=== PATIENT | male | born 1935 | race Caucasian/White ===

== ENCOUNTER 2016-03-16 09:42 | Emergency (ER) | payer MEDICARE ==
[~2016-03-16 09:42] MED LIST: /ESOM40CA PO; ASPI325T PO; ASPI81TAEC PO; ATOR40TA PO; AVEL1TAB PO; CAPT62TA PO; CLOP75TA2 PO; FE T325T PO; FERR325T3 PO; FISH1000 PO; FOLI1TAB2 PO; HYDR500C12 PO; IRON28TA PO; JADE1TAB3 PO; PANT40TA2 PO; PROC INJ; PROC1INJ6 INJ; SERT-141 PO; SUCR1TA PO; SYSTSOL11 OU; TYLE325T5 PO; VITMTA PO
--- NOTE | 2016-03-16 11:20 | EDDOCDS ---
Physician Documentation [facility] Name: Tr Denson Age: 80 yrs Sex: Male : 1935 Arrival Date: 03/16/2016 Time: 09:42 Bed Private MD: Skip Michaels A. Disposition: 03/16/16 10:53 Discharged to Home/Self Care. Impression: Unspecified open wound of right forearm. - Condition is Stable. - Discharge Instructions: Wound Care, [id number]. - Medication Reconciliation form. - Follow up: Emergency Department; When: As needed. Follow up: Kody Ramirez MD; When: Call to arrange an appointment; Reason: Wound/Symptom Recheck, Recheck today's complaints, Worsening of conditions, Continuance of care. - Problem is an ongoing problem. - Symptoms are unchanged. Historical: - Allergies: No known drug Allergies; - Home Meds: 1. aspirin 81 mg Oral chew 1 tab once daily 2. atorvastatin 40 mg oral tab 1 tab once daily 3. Daily-Esteban oral tab daily 4. Fish Oil Oral 1200 mg daily 5. hydroxyurea 500 mg Oral cap every day except tues everyday except tues 6. Procrit 40,000 unit/mL Inj soln 3 times per wk 7. sertraline 50 mg oral tab 1 tab once daily 8. captopril 12.5 mg Oral tab 0.5 tab 2 times per day 9. Plavix 75 mg Oral tab 1 tab once daily 10. Jadenu 360 mg oral tab 1 tab once daily 11. furosemide 20 mg Oral tab 1 tab once daily 12. metoprolol succinate 25 mg Tb24 1 tab once daily - PMHx: Anemia; aortic anyeursym; CVA; Essential Thronbocytemia; Hypercholesterolemia; Hypertension; Myelodysplasia; - PSHx: open heart- aortic valve replacement; Cardiac Ablation; Tonsillectomy; - Social history: Smoking status: Patient states former smoker of tobacco. No barriers to communication noted, The patient speaks fluent Iranian, Speaks appropriately for age. - : The pt / caregiver states he / she is not on anticoagulants. Home medication list is obtained from the patient, family members. - Exposure Risk Screening:: None identified. Vital Signs: 03/16 09:43 BP 123 / 54; Pulse 59; Resp 18; Temp 95.9(O); Pulse Ox 100% on R/A; Weight 63.96 kg / elp 141.01 lbs (R); Height 5 ft. 11 in. (180.34 cm) (R); Pain 0/10; 11:08 BP 107 / 57 RA Sitting (auto/reg); Pulse 62; Resp 16; Temp 96.1(T); Pulse Ox 98% on rs6 R/A; Pain 0/10; 09:43 Body Mass Index 19.67 (63.96 kg, 180.34 cm) elp MDM: 10:35 [facility] Payment Agreement was scanned into [employer] and attached to record. jls1 10:36 [facility] Punch Box Tender Order ordered. cc10 10:36 Financial registration complete. jls1 10:41 [facility] Punch Box Tender Order complete. jrd 10:42 WOUND CULTURE Ordered. EDMS Signatures: Dispatcher [employer] EDMS Kaylene Rodgers RN RN hs1 Tess Slaughter,RN RN [facility] Chas Dalal, PA-C PA-C cc10 Julius Wells, SENIOR BENEFITS MANAGER SENIOR BENEFITS MANAGER jrd Marilin Holguin jls1 The chart was reviewed and I authenticate all verbal orders and agree with the evaluation and treatment provided.Corrections: (The following items were deleted from the chart) 10:12 10:11 WOUND CULTURE+MARLIN ordered. EDMS EDMS Attachments: 10:35 [facility] Payment Agreement jls1 MTDD
--- NOTE | 2016-03-16 11:21 | EDDOCDS ---
Nurse's Notes [facility] Name: Tr Denson Age: 80 yrs Sex: Male : 1935 Arrival Date: 03/16/2016 Time: 09:42 Bed PR1 / Private MD: Skip Michaels A. Diagnosis: Unspecified open wound of right forearm Presentation: 03/16 09:46 Presenting complaint: states: went to [facility] 1 week ago and was catheterized to hs1 see if they could place stent. Patient states unable to complete stent and wound still open and not healing. Pt was at oncologists apt today and was sent here for further evaluation. Adult Sepsis Screening: The patient does not have new or worsening altered mentation. Patient's respiratory rate is less than 22. Systolic blood pressure is greater than 100. Patient has a qSOFA score of 0- Negative Sepsis Screen. Suicide/Homicide risk assessment- the patient denies having any suicidal and/or homicidal ideations and does not present with any other emotional, behavioral or mental health complaints. Status: Patient is not a retail service technician or dependent. Transition of care: patient was not received from another setting of care. 09:46 Acuity: DANITA Level 4 hs1 09:46 Method Of Arrival: Walkin/Carried/Asstd hs1 Triage Assessment: 09:52 General: Appears in no apparent distress, comfortable, Behavior is appropriate for age, hs1 cooperative. Pain: Denies pain. Derm: wound bandaged with pressure dressing by oncology. Historical: - Allergies: No known drug Allergies; - Home Meds: 1. aspirin 81 mg Oral chew 1 tab once daily 2. atorvastatin 40 mg oral tab 1 tab once daily 3. Daily-Esteban oral tab daily 4. Fish Oil Oral 1200 mg daily 5. hydroxyurea 500 mg Oral cap every day except tues everyday except tues 6. Procrit 40,000 unit/mL Inj soln 3 times per wk 7. sertraline 50 mg oral tab 1 tab once daily 8. captopril 12.5 mg Oral tab 0.5 tab 2 times per day 9. Plavix 75 mg Oral tab 1 tab once daily 10. Jadenu 360 mg oral tab 1 tab once daily 11. furosemide 20 mg Oral tab 1 tab once daily 12. metoprolol succinate 25 mg Tb24 1 tab once daily - PMHx: Anemia; aortic anyeursym; CVA; Essential Thronbocytemia; Hypercholesterolemia; Hypertension; Myelodysplasia; - PSHx: open heart- aortic valve replacement; Cardiac Ablation; Tonsillectomy; - Social history: Smoking status: Patient states former smoker of tobacco. No barriers to communication noted, The patient speaks fluent Australian, Speaks appropriately for age. - : The pt / caregiver states he / she is not on anticoagulants. Home medication list is obtained from the patient, family members. - Exposure Risk Screening:: None identified. Screenin:16 Screening information is obtained from the patient. Fall risk: No risks identified. [facility] Assistance ADL's: requires no assistance with activities of daily living. Abuse/DV Screen: The patient / caregiver reports he/she is: not in a situation that causes fear, pain or injury. Nutritional screening: No deficits noted. Advance Directives: There is no active DNR order. home support is adequate. Assessment: 11:16 General: Appears in no apparent distress, comfortable, Behavior is appropriate for age, [facility] cooperative, first contact with patient and family to review discharge instructions, encouraged and answered questions, patient and family deny needs at present. Vital Signs: 09:43 BP 123 / 54; Pulse 59; Resp 18; Temp 95.9(O); Pulse Ox 100% on R/A; Weight 63.96 kg elp (R); Height 5 ft. 11 in. (180.34 cm) (R); Pain 0/10; 11:08 BP 107 / 57 RA Sitting (auto/reg); Pulse 62; Resp 16; Temp 96.1(T); Pulse Ox 98% on rs6 R/A; Pain 0/10; 09:43 Body Mass Index 19.67 (63.96 kg, 180.34 cm) [facility] Vitals: 09:43 Log In Time: March 16, 2016 at 09:41. [facility] ED Course: 09:43 Patient visited by Arielle Hein PCA. elp 09:43 Skip Michaels is Private Physician. elp 09:43 Patient moved to Waiting elp 09:44 Patient visited by Arielle Hein PCA. elp 09:44 Patient moved to Pre RCE elp 09:47 Triage Initiated hs1 10:01 [facility]as Dalal [facility]C [facility] cc10 10:01 Yuniel Lynch MD is Attending Physician. cc10 10:01 Patient visited by Chas Dalal PA-C. cc10 10:01 Patient moved to Triage 2 hs1 10:02 Patient visited by Chas Dalal PA-C. cc10 10:35 [facility] Payment Agreement was scanned into [employer] and attached to record. jls1 10:44 Patient moved to TR1 jrd 10:44 WOUND CULTURE Sent. jrd 10:49 Patient moved to PR1 / 25 jrd 10:52 Kody Ramirez MD is Referral Physician. cc10 11:09 Patient visited by Yas Lantigua PCA. rs6 11:16 The patient / caregiver is instructed regarding the plan of care and ED course. [facility] 11:16 No IV's were initiated during this patient's visit. No procedures done that require [facility] assistance. Order Results: There are currently no results for this order. Outcome: 10:53 Discharge ordered by Provider. cc10 11:16 Discharge Assessment: Patient awake, alert and oriented x 3. No cognitive and/or [facility] functional deficits noted. Patient verbalized understanding of disposition instructions. patient administered narcotics - no. The following High Risk Discharge criteria are identified: None. Discharged to home ambulatory, with family. Condition: good Condition: stable Condition: improved. Discharge instructions given to patient, Instructed on discharge instructions, follow up and referral plans. medication usage, Demonstrated understanding of instructions, medications, Pt was receptive of discharge instructions/ teaching. No special radiology studies were completed. Property :Personal belongings accompany Pt. 11:19 Patient left the ED. [facility] Signatures: Kaylene Rodgers, RN RN hs1 Tess SlaughterRN RN [facility] Arielle Hein, HOT BOX CHECKER HOT BOX CHECKER elp Chas Dalal PA-C PA-C cc10 Julius Wells, HOT BOX CHECKER HOT BOX CHECKER jrd Yas Lantigua, HOT BOX CHECKER HOT BOX CHECKER rs6 Marilin Holguin jls1 MTDD
--- NOTE | 2016-03-18 12:20 | EDDOCDS ---
Nurse's Notes [facility] Name: Tr Denson Age: 80 yrs Sex: Male : 1935 Arrival Date: 03/16/2016 Time: 09:42 Bed PR1 / Private MD: Skip Michaels A. Diagnosis: Unspecified open wound of right forearm Presentation: 03/16 09:46 Presenting complaint: states: went to [facility] 1 week ago and was catheterized to hs1 see if they could place stent. Patient states unable to complete stent and wound still open and not healing. Pt was at oncologists apt today and was sent here for further evaluation. Adult Sepsis Screening: The patient does not have new or worsening altered mentation. Patient's respiratory rate is less than 22. Systolic blood pressure is greater than 100. Patient has a qSOFA score of 0- Negative Sepsis Screen. Suicide/Homicide risk assessment- the patient denies having any suicidal and/or homicidal ideations and does not present with any other emotional, behavioral or mental health complaints. Status: Patient is not a protective services case worker or dependent. Transition of care: patient was not received from another setting of care. 09:46 Acuity: DANITA Level 4 hs1 09:46 Method Of Arrival: Walkin/Carried/Asstd hs1 Triage Assessment: 09:52 General: Appears in no apparent distress, comfortable, Behavior is appropriate for age, hs1 cooperative. Pain: Denies pain. Derm: wound bandaged with pressure dressing by oncology. Historical: - Allergies: No known drug Allergies; - Home Meds: 1. aspirin 81 mg Oral chew 1 tab once daily 2. atorvastatin 40 mg oral tab 1 tab once daily 3. Daily-Esteban oral tab daily 4. Fish Oil Oral 1200 mg daily 5. hydroxyurea 500 mg Oral cap every day except tues everyday except tues 6. Procrit 40,000 unit/mL Inj soln 3 times per wk 7. sertraline 50 mg oral tab 1 tab once daily 8. captopril 12.5 mg Oral tab 0.5 tab 2 times per day 9. Plavix 75 mg Oral tab 1 tab once daily 10. Jadenu 360 mg oral tab 1 tab once daily 11. furosemide 20 mg Oral tab 1 tab once daily 12. metoprolol succinate 25 mg Tb24 1 tab once daily - PMHx: Anemia; aortic anyeursym; CVA; Essential Thronbocytemia; Hypercholesterolemia; Hypertension; Myelodysplasia; - PSHx: open heart- aortic valve replacement; Cardiac Ablation; Tonsillectomy; - Social history: Smoking status: Patient states former smoker of tobacco. No barriers to communication noted, The patient speaks fluent Qatari, Speaks appropriately for age. - : The pt / caregiver states he / she is not on anticoagulants. Home medication list is obtained from the patient, family members. - Exposure Risk Screening:: None identified. Screenin:16 Screening information is obtained from the patient. Fall risk: No risks identified. [facility] Assistance ADL's: requires no assistance with activities of daily living. Abuse/DV Screen: The patient / caregiver reports he/she is: not in a situation that causes fear, pain or injury. Nutritional screening: No deficits noted. Advance Directives: There is no active DNR order. home support is adequate. Assessment: 11:16 General: Appears in no apparent distress, comfortable, Behavior is appropriate for age, [facility] cooperative, first contact with patient and family to review discharge instructions, encouraged and answered questions, patient and family deny needs at present. Vital Signs: 09:43 BP 123 / 54; Pulse 59; Resp 18; Temp 95.9(O); Pulse Ox 100% on R/A; Weight 63.96 kg elp (R); Height 5 ft. 11 in. (180.34 cm) (R); Pain 0/10; 11:08 BP 107 / 57 RA Sitting (auto/reg); Pulse 62; Resp 16; Temp 96.1(T); Pulse Ox 98% on rs6 R/A; Pain 0/10; 09:43 Body Mass Index 19.67 (63.96 kg, 180.34 cm) [facility] Vitals: 09:43 Log In Time: March 16, 2016 at 09:41. [facility] ED Course: 09:43 Patient visited by Arielle Hein PCA. elp 09:43 Skip Michaels is Private Physician. elp 09:43 Patient moved to Waiting elp 09:44 Patient visited by Arielle Hein PCA. elp 09:44 Patient moved to Pre RCE elp 09:47 Triage Initiated hs1 10:01 [facility] cc[facility] 10:01 Yuniel Lynch MD is Attending Physician. cc10 10:01 Patient visited by Chas Dalal PA-C. cc10 10:01 Patient moved to Triage 2 hs1 10:02 Patient visited by Chas Dalal PA-C. cc10 10:35 [facility] Payment Agreement was scanned into [employer] and attached to record. jls1 10:44 Patient moved to TR1 jrd 10:44 WOUND CULTURE Sent. jrd 10:49 Patient moved to PR1 / 25 jrd 10:52 Kody Rmairez MD is Referral Physician. cc10 11:09 Patient visited by Yas Lantigua PCA. rs6 11:16 The patient / caregiver is instructed regarding the plan of care and ED course. [facility] 11:16 No IV's were initiated during this patient's visit. No procedures done that require [facility] assistance. 14:02 T-Sheet-- Draft Copy was scanned into [employer] and attached to record. gb Order Results: There are currently no results for this order. Outcome: 10:53 Discharge ordered by Provider. cc10 11:16 Discharge Assessment: Patient awake, alert and oriented x 3. No cognitive and/or [facility] functional deficits noted. Patient verbalized understanding of disposition instructions. patient administered narcotics - no. The following High Risk Discharge criteria are identified: None. Discharged to home ambulatory, with family. Condition: good Condition: stable Condition: improved. Discharge instructions given to patient, Instructed on discharge instructions, follow up and referral plans. medication usage, Demonstrated understanding of instructions, medications, Pt was receptive of discharge instructions/ teaching. No special radiology studies were completed. Property :Personal belongings accompany Pt. 11:19 Patient left the ED. [facility] Signatures: Jacinta Faria, Reg Reg Kaylene Ralph RN RN hs1 Tess SlaughterRN CARLOS [facility] Arielle Hein, PRODUCTION CONTROL MANAGER PRODUCTION CONTROL MANAGER elp Chas Dalal PA-C PA-C cc10 Julius Wells, PRODUCTION CONTROL MANAGER PRODUCTION CONTROL MANAGER jrd Yas Lantigua, PRODUCTION CONTROL MANAGER PRODUCTION CONTROL MANAGER rs6 Marilin Holguin jls1 Chart Complete MTDD
--- NOTE | 2016-03-18 12:20 | EDDOCDS ---
Physician Documentation [facility] Name: Tr Denson Age: 80 yrs Sex: Male : 1935 Arrival Date: 03/16/2016 Time: 09:42 Bed Private MD: Skip Michaels A. Disposition: 03/16/16 10:53 Discharged to Home/Self Care. Impression: Unspecified open wound of right forearm. - Condition is Stable. - Discharge Instructions: Wound Care, [id number]. - Medication Reconciliation form. - Follow up: Emergency Department; When: As needed. Follow up: Kody Ramirez MD; When: Call to arrange an appointment; Reason: Wound/Symptom Recheck, Recheck today's complaints, Worsening of conditions, Continuance of care. - Problem is an ongoing problem. - Symptoms are unchanged. Historical: - Allergies: No known drug Allergies; - Home Meds: 1. aspirin 81 mg Oral chew 1 tab once daily 2. atorvastatin 40 mg oral tab 1 tab once daily 3. Daily-Esteban oral tab daily 4. Fish Oil Oral 1200 mg daily 5. hydroxyurea 500 mg Oral cap every day except tues everyday except tues 6. Procrit 40,000 unit/mL Inj soln 3 times per wk 7. sertraline 50 mg oral tab 1 tab once daily 8. captopril 12.5 mg Oral tab 0.5 tab 2 times per day 9. Plavix 75 mg Oral tab 1 tab once daily 10. Jadenu 360 mg oral tab 1 tab once daily 11. furosemide 20 mg Oral tab 1 tab once daily 12. metoprolol succinate 25 mg Tb24 1 tab once daily - PMHx: Anemia; aortic anyeursym; CVA; Essential Thronbocytemia; Hypercholesterolemia; Hypertension; Myelodysplasia; - PSHx: open heart- aortic valve replacement; Cardiac Ablation; Tonsillectomy; - Social history: Smoking status: Patient states former smoker of tobacco. No barriers to communication noted, The patient speaks fluent Prydeinig, Speaks appropriately for age. - : The pt / caregiver states he / she is not on anticoagulants. Home medication list is obtained from the patient, family members. - Exposure Risk Screening:: None identified. Vital Signs: 03/16 09:43 BP 123 / 54; Pulse 59; Resp 18; Temp 95.9(O); Pulse Ox 100% on R/A; Weight 63.96 kg / elp 141.01 lbs (R); Height 5 ft. 11 in. (180.34 cm) (R); Pain 0/10; 11:08 BP 107 / 57 RA Sitting (auto/reg); Pulse 62; Resp 16; Temp 96.1(T); Pulse Ox 98% on rs6 R/A; Pain 0/10; 09:43 Body Mass Index 19.67 (63.96 kg, 180.34 cm) elp MDM: 10:35 [facility] Payment Agreement was scanned into [employer] and attached to record. jls1 10:36 [facility] Office Administration Order ordered. cc10 10:36 Financial registration complete. jls1 10:41 [facility] Order complete. jrd 10:42 WOUND CULTURE Ordered. EDMS 14:02 T-Sheet-- Draft Copy was scanned into [employer] and attached to record. gb Signatures: Dispatcher [employer] EDMS Jacinta Faria, Reg Reg Kaylene Rodgers, RN RN hs1 Tess Slaughter,RN RN cj Chas Dalal, PA-C PA-C cc10 Julius Wells, HIGH SCHOOL HISTORY TEACHER HIGH SCHOOL HISTORY TEACHER Marilin Guidry jls1 The chart was reviewed and I authenticate all verbal orders and agree with the evaluation and treatment provided.Corrections: (The following items were deleted from the chart) 10:12 10:11 WOUND CULTURE+MARLIN ordered. EDMS EDMS Attachments: 10:35 [facility] Payment Agreement jls1 14:02 T-Sheet-- Draft Copy gb Chart Complete MTDD
--- NOTE | 2016-03-18 12:20 | EDDOCDS ---
Physician Documentation [facility] Name: Tr Denson Age: 80 yrs Sex: Male : 1935 Arrival Date: 03/16/2016 Time: 09:42 Bed Private MD: Skip Michaels A. Disposition: 03/16/16 10:53 Discharged to Home/Self Care. Impression: Unspecified open wound of right forearm. - Condition is Stable. - Discharge Instructions: Wound Care, [id number]. - Medication Reconciliation form. - Follow up: Emergency Department; When: As needed. Follow up: Kody Ramirez MD; When: Call to arrange an appointment; Reason: Wound/Symptom Recheck, Recheck today's complaints, Worsening of conditions, Continuance of care. - Problem is an ongoing problem. - Symptoms are unchanged. Historical: - Allergies: No known drug Allergies; - Home Meds: 1. aspirin 81 mg Oral chew 1 tab once daily 2. atorvastatin 40 mg oral tab 1 tab once daily 3. Daily-Esteban oral tab daily 4. Fish Oil Oral 1200 mg daily 5. hydroxyurea 500 mg Oral cap every day except tues everyday except tues 6. Procrit 40,000 unit/mL Inj soln 3 times per wk 7. sertraline 50 mg oral tab 1 tab once daily 8. captopril 12.5 mg Oral tab 0.5 tab 2 times per day 9. Plavix 75 mg Oral tab 1 tab once daily 10. Jadenu 360 mg oral tab 1 tab once daily 11. furosemide 20 mg Oral tab 1 tab once daily 12. metoprolol succinate 25 mg Tb24 1 tab once daily - PMHx: Anemia; aortic anyeursym; CVA; Essential Thronbocytemia; Hypercholesterolemia; Hypertension; Myelodysplasia; - PSHx: open heart- aortic valve replacement; Cardiac Ablation; Tonsillectomy; - Social history: Smoking status: Patient states former smoker of tobacco. No barriers to communication noted, The patient speaks fluent Zambian, Speaks appropriately for age. - : The pt / caregiver states he / she is not on anticoagulants. Home medication list is obtained from the patient, family members. - Exposure Risk Screening:: None identified. Vital Signs: 03/16 09:43 BP 123 / 54; Pulse 59; Resp 18; Temp 95.9(O); Pulse Ox 100% on R/A; Weight 63.96 kg / elp 141.01 lbs (R); Height 5 ft. 11 in. (180.34 cm) (R); Pain 0/10; 11:08 BP 107 / 57 RA Sitting (auto/reg); Pulse 62; Resp 16; Temp 96.1(T); Pulse Ox 98% on rs6 R/A; Pain 0/10; 09:43 Body Mass Index 19.67 (63.96 kg, 180.34 cm) elp MDM: 10:35 [facility] Payment Agreement was scanned into [email or web address] and attached to record. jls1 10:36 [facility] Ios Architect Order ordered. cc10 10:36 Financial registration complete. jls1 10:41 [facility] Order complete. jrd 10:42 WOUND CULTURE Ordered. EDMS 14:02 T-Sheet-- Draft Copy was scanned into [email or web address] and attached to record. gb Signatures: Dispatcher [employer] EDMS Jacinta Faria, Reg Reg Kaylene Rodgers, RN RN hs1 Tess Slaughter,RN RN cj Chas Dalal, PA-C PA-C cc10 Julius Wells, ROLL COVERER ROLL COVERER Marilin Guidry jls1 The chart was reviewed and I authenticate all verbal orders and agree with the evaluation and treatment provided.Corrections: (The following items were deleted from the chart) 10:12 10:11 WOUND CULTURE+MARLIN ordered. EDMS EDMS Attachments: 10:35 [facility] Payment Agreement jls1 14:02 T-Sheet-- Draft Copy gb Chart Complete MTDD
== END 2016-03-16 11:19 | disposition home or self-care (01) ==
LOC: M ED 09:42
DX: S61.501A Unspecified open wound of right wrist, initial encounter (principal); X58.XXXA Exposure to other specified factors, initial encounter; Y92.89 Other specified places as the place of occurrence of the external cause; Y93.89 Activity, other specified; Y99.8 Other external cause status; Z98.890 Other specified postprocedural states; D46.9 Myelodysplastic syndrome, unspecified; D64.9 Anemia, unspecified; I71.4 Abdominal aortic aneurysm, without rupture; D69.3 Immune thrombocytopenic purpura; I10 Essential (primary) hypertension; E78.00 Pure hypercholesterolemia, unspecified; Z86.73 Personal history of transient ischemic attack (TIA), and cerebral infarction without residual deficits; Z79.899 Other long term (current) drug therapy; Z79.02 Long term (current) use of antithrombotics/antiplatelets; Z79.82 Long term (current) use of aspirin; Z87.891 Personal history of nicotine dependence

== ENCOUNTER 2016-03-23 01:32 | Inpatient (IN) | payer MEDICARE ==
[2016-03-23] VITALS (7 sets, daily range): BP systolic 99–131; BP diastolic 52–64
[~2016-03-23] VITALS: Ht 180.3 cm; Wt 60.6 kg
[2016-03-23 02:08] LABS: DIFF SLIDE NUMBER 109; MEAN CORPUSCULAR HEMOGLOBIN 36.2 pg (27.0-33.0); MEAN CORPUSCULAR HGB CONC 32.7 g/dl (32.0-36.5); MEAN CORPUSCULAR VOLUME 110.6 fl (80.0-96.0); PLATELET COUNT, AUTOMATED 346 k/mm3 (150-450); RED CELL DISTRIBUTION WIDTH 23.7 % (11.5-14.5)
[2016-03-23] MEDS ORDERED: ASPIRIN 81 MG CHEW TABLET As Ordered ONE (02:08)
[2016-03-23 02:15] LABS: WHITE BLOOD COUNT 49.9 K/mm3 (4.0-10.0)
[2016-03-23 02:19] LABS: ANION GAP 10 MEQ/L (8-16); BLOOD UREA NITROGEN 30 MG/DL (7-18); CALCIUM LEVEL 9.1 MG/DL (8.8-10.2); CARBON DIOXIDE LEVEL 26 MEQ/L (21-32); CHLORIDE LEVEL 106 MEQ/L (98-107); CREATININE FOR GFR 1.14 MG/DL (0.70-1.30); GLOMERULAR FILTRATION RATE > 60.0 (>35); GLUCOSE, FASTING 103 MG/DL (83-110); POTASSIUM SERUM 4.1 MEQ/L (3.5-5.1); SODIUM LEVEL 142 MEQ/L (136-145)
[2016-03-23 02:39] LABS: BANDS 3 % (< 11)
[2016-03-23 02:40] LABS: ANISOCYTOSIS 2+
--- NOTE | 2016-03-23 02:42 | REP ---
Clinical: Chest pain. Comparison: 02/24/2017. Findings: Mediastinum and cardiac silhouette are stable with mild cardiomegaly again suggested. Lung funes demonstrate chronic interstitial changes without acute consolidation, effusion, or pneumothorax. Skeletal structures stable. Prior sternotomy again noted. Impression: Chronic stable changes. No acute cardiopulmonary process. Signed by Carlos Trevino MD 03/23/2016 02:33 A
[2016-03-23] MEDS ORDERED: ISOVUE-370 76% 100ML VIAL (Q9967) As Ordered ONE (02:56)
[2016-03-23] MEDS ORDERED: NITROGLYCERIN 0.4 MG SUBL TABLET As Ordered ONE (03:14)
[2016-03-23] MEDS ORDERED: METO12TA PO (03:49)
[2016-03-23] MEDS ORDERED: FURO20TA2 PO (03:49)
[2016-03-23] MEDS ORDERED: NITR4TASL SL (03:49)
[2016-03-23] MEDS ORDERED: NITR0.4D6 TD (03:49)
--- NOTE | 2016-03-23 04:10 | REPUSA ---
CLINICAL HISTORY: Dyspnea, exclude PE. TECHNIQUE: Multiple incremental axial, coronal and oblique images are obtained from the thoracic inle t to the upper abdomen. Intravenous contrast material was administered as per pulmonary embolism prot ocol. COMMENTS: Comparison is made to the prior exam performed on 02/25/2016. There is excellent opacification of pulmonary arterial system without evidence for pulmonary embolism . Aorta is of normal caliber without evidence for aneurysm. Enlarged pulmonary artery suggestive of pulmonary hypertension. Suboptimal opacification of the aorta. There is no evidence of pleural or parenchymal mass. There are minimal residual pleural effusions. Pa ssive atelectatic airspace disease of the lower lobes. No change of bilateral ground glass densities. There is no evidence of hilar or mediastinal lymphadenopathy. The heart remains enlarged and great v essels are engorged. Images of the upper abdomen demonstrate no evidence of adrenal mass. The bony structures are free of lytic or blastic lesions. Multilevel degenerative changes are seen in volving the visualized thoracolumbar spine. Scattered calcifications are seen involving the aorta and major branches compatible with atherosclero sis. Mild splenomegaly. IMPRESSION: No evidence for pulmonary embolism. Decreased pleural effusions with minimal residual rim. Groundglass and densities are unchanged. No change in cardiomegaly. Thank you for your kind referral of this patient.
[2016-03-23] MEDS ORDERED: PERCOCET 5MG/325MG TAB PO PRN (04:45)
[2016-03-23] MEDS ORDERED: ACETAMINOPHEN TAB 650MG DOSE (2X325MG) PO PRN (04:45)
[2016-03-23] MEDS ORDERED: NITROGLYCERIN 0.4 MG SUBL TABLET SL PRN (04:45)
[2016-03-23] MEDS ORDERED: ONDANSETRON 4MG/2ML VIAL (J2405) IV PRN (04:45)
[2016-03-23] MEDS ORDERED: MORPHINE 2 MG/ML 1ML SYRINGE IV PRN (04:45)
[2016-03-23] MEDS ORDERED: ONDANSETRON 4 MG TAB (S0181) PO PRN (04:45)
--- NOTE | 2016-03-23 05:05 | HPEPDOC ---
Medical History and Physical Date of Admission Mar 23, 2016 at 04:37 History and Physical HISTORY AND PHYSICAL Date of admission: 03/23/2016 PCP: RIGOBERTO Hurtado Chief complaint: Chest pain HPI: 80-year-old male with myelodysplastic syndrome, history of CVA with residual left-sided deficits, history of SVT status post ablation, history of porcine aortic valve replacement, hypertension, hyperlipidemia, coronary artery disease with recent NJ in January 2016, unspecified CHF, PAD who presented with chest pain. He states that he was awakened from sleep at approximately 11 PM tonight with the pain. It was substernal, sharp in nature, and did not radiate. He took some nitroglycerin at home, which relieved his pain. However, in the emergency department, the pain returned, but it was once again relieved with nitroglycerin. Nothing seemed to exacerbate the pain. The patient had an NJ approximately one month ago, during which time he received care at [facility]. At that time, on cardiac cath, they recognized such severe disease that they recommended CABG, however, the patient was unable to be cleared for surgery and PCI was deemed too risky. Dr. Burnham in the emergency department called to [facility] and spoke to Dr. Singh who works with the practice that cared for Mr. Bravo. He told Dr. Burnham that he was also familiar with Mr. Bravo, and that unfortunately, there are no further interventions that could be offered to this patient. Past medical history: myelodysplastic syndrome, history of CVA with residual left-sided deficits, history of SVT status post ablation, history of porcine aortic valve replacement, hypertension, hyperlipidemia, coronary artery disease with recent NJ in January 2016, unspecified CHF, PAD Past surgical history: Porcine aortic valve replacement, cardiac ablation, tonsillectomy Family history: Coronary artery disease Social history: The patient is . He denies alcohol consumption. He quit smoking in 1979. He does not use any drugs. Allergies: No known drug allergies Review of systems: General: Negative for fever and chills Eyes: Negative for vision changes and redness ENT: Negative for sore throat and nose bleed Cardiovascular: Positive for chest pain. Negative for palpitations. Respiratory: Positive for cough and shortness of breath GI: Negative for nausea, vomiting, diarrhea, constipation Musculoskeletal: Negative for neck and back pain Skin: Negative for rash Neuro: Negative for headache, dizziness, numbness, tingling Psych: Negative for depression Endocrine: Negative for polyuria : Negative for dysuria Heme: Negative for bruising and bleeding Home meds: See below Physical exam: Vital signs: Blood pressure 97/51, HR 82, temperature 88.3, O2 sat 96% on 2 L, RR 16 Gen.: awake, alert, no acute distress Eyes: Extraocular movements intact, normal sclera ENT: Moist mucous membranes Cardiovascular: RRR, no murmurs rubs or gallops Lungs: clear to auscultation bilaterally, no rales, rhonchi, or wheeze Abdomen: Soft, NT/ND, normal BS Musculoskeletal: normal range of motion Extremities: No peripheral edema, very pale and hairless BLE Neuro: alert and oriented 3, normal speech, weakness of left arm compared to right (per patient, baseline) Psych: Normal mood with congruent affect Labs and radiology: See below Initial troponin is within normal limits D-dimer 790, CTA of the chest does not show any pulmonary embolism WBC 49.9, hemoglobin 7.7; these are relatively unchanged from blood work that the patient brings that was completed earlier this month (WBC 59, Hgb 9.0) EKG shows ST depression and T-wave inversion that is unchanged from prior EKGs Assessment and plan: 80-year-old male with myelodysplastic syndrome, history of CVA with residual left-sided deficits, history of SVT status post ablation, history of porcine aortic valve replacement, hypertension, hyperlipidemia, coronary artery disease with recent NJ in January 2016, unspecified CHF, PAD who presented with chest pain. 1. Chest pain in the setting of HLP, PAD, and coronary artery disease with recent NJ: The patient is known to have significant coronary artery disease, that unfortunately, according to Dr. Singh in [facility], there is no further interventions that can be offered to the patient. Initial troponin is negative and EKG appears unchanged. We will continue to trend troponins and monitor him on telemetry. We will continue his home aspirin, Plavix, statin, and beta raisa. Also continue daily nitro patch. I suspect that part of this chest pain may be secondary to his anemia. He has MDS and requires frequent transfusions. His blood work was checked last week, at which time his hemoglobin was 9.0. His states that he was due to have his blood work checked again tomorrow, and that Dr. Reid has a goal hemoglobin of 9. The states that when his hemoglobin is below 9, Dr. Reid transfuses 2 units. We will transfuse 2u PRBCs. The patient verbally consented, but his had to physicially sign the consent as he is unable to sign secondary to deficits form his prior CVA. Nurse Belcher from the ED witnessed. 2. Myelodysplastic syndrome: The patient brings with him a copy of the CBC completed approximately 1 week ago. The WBC is relatively unchanged, but his Hgb has dropped from 9.0 to 7.7. His states that he was due to have his blood work checked again tomorrow, and that Dr. Reid has a goal hemoglobin of 9. The states that when his hemoglobin is below 9, Dr. Reid transfuses 2 units. We will transfuse 2u PRBCs. Continue home hydroxyurea. 3. Hypertension: Continue home metoprolol, GREGORY inhibitor and Lasix. 4. History of porcine aortic valve replacement: Continue home aspirin. 5. History of CVA with residual left-sided deficits: Continue home aspirin and Plavix, statin, and blood pressure control. 6. Unspecified CHF: The patient reports that he takes Lasix for congestive heart failure, but he is unsure of what kind he has. He states that he does not remember having an ultrasound of his heart after his recent NJ. We will check an echo and continue home lasix. He appears compensated at this time.l DVT prophylaxis: Lovenox Dispo: place in observation status on the service of Dr. Kimberly Cárdenas CODE STATUS: DO NOT INTUBATE Vital Signs see above Laboratory Data Labs 24H Laboratory Tests 2 03/23/16 01:49: Anion Gap 10, Anisocytosis 2+, Band Neutrophils 3, Blood Urea Nitrogen 30H, Creatinine 1.14, Sodium Level 142, Potassium Level 4.1, Chloride Level 106, Carbon Dioxide Level 26, Calcium Level 9.1, Total Creatine Kinase 41, Creatine Kinase MB 1.1, Creatine Kinase MB Relative Index 2.68, D-Dimer, Quantitative 790.5H, Glomerular Filtration Rate > 60.0, Lymphocytes (Manual) 2L, Macrocytosis 2+, Metamyelocytes 4H, Monocytes (Manual) 1, Myelocytes 3H, Neutrophils 86H, Platelet Estimate NORMAL, Promyelocytes 1H, Troponin I 0.02 CBC/BMP Laboratory Tests 03/23/16 01:49 Calcium Level 9.1, Total Creatine Kinase 41, Red Blood Count 2.12 L, Mean Corpuscular Volume 110.6 H, Mean Corpuscular Hemoglobin 36.2 H, Mean Corpuscular Hemoglobin Concent 32.7, Red Cell Distribution Width 23.7 H Home Medications Scheduled Aspirin (Aspirin EC) 81 Mg Tabec 81 MG PO DAILY Atorvastatin Calcium (Atorvastatin Calcium) 40 Mg Tab 40 MG PO QHS Captopril (Captopril) 12.5 Mg Tab 6.25 MG PO BID Clopidogrel Bisulfate (Clopidogrel) 75 Mg Tab 75 MG PO DAILY Deferasirox (Jadenu) 360 Mg Tab 360 MG PO QHS Furosemide (Furosemide) 20 Mg Tab 20 MG PO DAILY Hydroxyurea (Hydroxyurea) 500 Mg Cap 500 MG PO 6XWK EVERY DAY BUT MONDAY Metoprolol Tartrate (Metoprolol Tartrate) 25 Mg Tab 25 MG PO DAILY Multivitamins *[facility] STOCKED* (Thera M Plus *[facility] STOCKED*) 1 Tab Tab 1 TAB PO DAILY Nitroglycerin (Nitroglycerin) 0.4 Mg/Hr Dis 0.4 MG TD QHS Sertraline Hcl (Sertraline HCl) 50 Mg Tab 50 MG PO DAILY Scheduled PRN (Systane Ultra 0.4-0.3 %) 1 Elicia Elicia 1 DROP OU Q6H PRN PRN DRY EYES Acetaminophen (Tylenol) 325 Mg Tab 325 MG PO Q4H PRN PRN PAIN OR FEVER Epoetin Hipolito (Procrit) 40,000 Unit/Ml Inj 40,000 UNIT INJ TID PRN PRN LOW BLOOD COUNT AT DR. BANERJEE'S OFFICE Nitroglycerin (Nitrostat) 0.4 Mg Subl 0.4 MG SL NITRO PRN PRN ANGINA Allergies Coded Allergies: No Known Drug Allergy (Verified Allergy, Unknown, 10/21/13) MARIELENA CONNORS Mar 23, 2016 05:05
[2016-03-23] MEDS ORDERED: diphenhydrAMINE 25 MG CAP PO ONE (05:45)
[2016-03-23] MEDS ORDERED: ACETAMINOPHEN TAB 650MG DOSE (2X325MG) PO ONE (05:45)
[2016-03-23] MEDS ORDERED: ENOXAPARIN 40 MG/0.4 ML SYRINGE (J1650) SC SCH (09:00)
[2016-03-23] MEDS ORDERED: diphenhydrAMINE 25 MG CAP As Ordered ONE (09:48)
[2016-03-23] MEDS ORDERED: ACETAMINOPHEN TAB 650MG DOSE (2X325MG) As Ordered ONE (09:48)
[2016-03-23] MEDS: ASPIRIN 81 MG ENTERIC TAB PO SCH (10:02)
[2016-03-23] MEDS: HYDROXYUREA 500 MG CAP PO SCH (10:02)
[2016-03-23] MEDS: METOPROLOL TART 25 MG TABLET PO SCH (10:02)
[2016-03-23] MEDS: CAPTOpril 6.25 MG PER 1/2 TABLET PO SCH ×2 (10:03→21:50)
[2016-03-23] MEDS: SERTRALINE HCL 50 MG TAB PO SCH (10:03)
[2016-03-23] MEDS: CLOPIDOGREL 75 MG TAB PO SCH (10:03)
[2016-03-23] MEDS: FUROSEMIDE 20 MG TAB PO SCH (10:03)
[2016-03-23] MEDS: MULTIVITAMINS/MINERALS THERAP 1 TAB PO SCH (10:04)
[2016-03-23] MEDS: NS 1,000 ML IV SCH (15:30)
--- NOTE | 2016-03-23 19:49 | EDDOCDS ---
Nurse's Notes [facility] Name: Tr Denson Age: 80 yrs Sex: Male : 1935 Arrival Date: 03/23/2016 Time: 01:32 Bed Admit Hold Private MD: Diagnosis: Chest pain, unspecified-Rule Out Acute Coronary Syndrome;Anemia, unspecified Presentation: 03/23 01:37 Presenting complaint: Patient states: chest pain started at about 2340. First nitro nn1 given at 2340, second nitro given at 0014. Patient reports nitro temporarily relieved pain. Patient reports sharp substernal chest pain. Patient has 2 known blockages, patient had LA on 02/24/16. Presenting complaint: Patient states: Nitro has nitro patch, patch put on at 1930. Pain woke patient from sleep. Aspirin was not taken prior to arrival. Adult Sepsis Screening:. Suicide/Homicide risk assessment- the patient denies having any suicidal and/or homicidal ideations and does not present with any other emotional, behavioral or mental health complaints. Status: Patient is not a food service substitute or dependent. Transition of care: patient was not received from another setting of care. 01:37 Acuity: DANITA Level 2 nn1 01:37 Method Of Arrival: Walkin/Carried/Asstd nn1 Triage Assessment: 01:47 General: Appears in no apparent distress, comfortable, Behavior is appropriate for age, nn1 cooperative. Pain: Location: xyphoid area and mid-sternal area Pain currently is 8 out of 10 on a pain scale. Pain does not radiate. Quality of pain is described as sharp, Pain began 3 hours ago. The patient is triaged at the bedside. See Assessment in Nurses Notes section of ED record. Neurological: Level of Consciousness is awake, alert, obeys commands, Oriented to person, place, time. Cardiovascular: Chest pain is described as severe, is located in substernal area radiates Does not radiate. episodes are continuous began 3 hours prior to arrival. Respiratory: Airway is patent Respiratory effort is even, unlabored, Respiratory pattern is regular, symmetrical. Derm: Skin is jaundiced. Musculoskeletal: No deficits noted. Historical: - Allergies: No known drug Allergies; - Home Meds: 1. aspirin 81 mg Oral chew 1 tab once daily 2. atorvastatin 40 mg oral tab 1 tab once daily 3. captopril 12.5 mg Oral tab 0.5 tab 2 times per day 4. Daily-Esteban oral tab daily 5. furosemide 20 mg Oral tab 1 tab once daily 6. hydroxyurea 500 mg Oral cap every day except tues everyday except tues 7. Jadenu 360 mg oral tab 1 tab once daily 8. metoprolol succinate 25 mg Tb24 1 tab once daily 9. Plavix 75 mg Oral tab 1 tab once daily 10. Procrit 40,000 unit/mL Inj soln 3 times per wk as needed 11. sertraline 50 mg oral tab 1 tab once daily 12. nitroglycerin 0.4 mg SL subl 1 tab every 5 minutes 13. Nitro-Bid 2 % transdermal oint 1 inch daily - PMHx: Anemia; aortic anyeursym; CVA; Essential Thronbocytemia; Hypercholesterolemia; Hypertension; Myelodysplasia; LA; - PSHx: open heart- aortic valve replacement - 2013; Cardiac Ablation; Tonsillectomy; - Social history: Smoking status: Patient states former smoker of tobacco. No barriers to communication noted, The patient speaks fluent Macedonian, Speaks appropriately for age. - : The pt / caregiver states he / she is on anticoagulants: Plavix. Home medication list is obtained from family members. - Exposure Risk Screening:: None identified. Screenin:46 Screening information is obtained from the patient. Fall risk: No risks identified. nn1 Assistance ADL's: requires no assistance with activities of daily living. Abuse/DV Screen: The patient / caregiver reports he/she is: not in a situation that causes fear, pain or injury. Nutritional screening: meds with apple sauce due to difficulty swallowing . Advance Directives: Currently, there is a health care proxy, Tonya Natarajan, daughter . home support is adequate. Assessment: 01:51 General: Appears in no apparent distress, comfortable, well nourished, well groomed, kas2 Behavior is appropriate for age, cooperative. Pain: Location: chest and mid-sternal area and xyphoid area Pain currently is 8 out of 10 on a pain scale. Pain does not radiate. Quality of pain is described as pressure, Pain began 2 hours ago Is continuous. Neurological: Level of Consciousness is awake, alert, Oriented to person, place, time. Cardiovascular: Capillary refill < 3 seconds Heart tones S1 S2 present Rhythm is sinus rhythm No ectopy. Chest pain is described as Pain is 8 out of 10 on a pain scale. quality is pressure, is located in epigastric area radiates Does not radiate. episodes are continuous began 2 hours prior to arrival. Respiratory: Airway is patent Respiratory effort is even, unlabored, Respiratory pattern is regular, symmetrical, Breath sounds are clear bilaterally. Derm: Skin is intact, Skin is dry, Skin is jaundiced, Skin temperature is warm. 03:19 General: Appears uncomfortable, Pt c/o substernal chest pain 7/10 without radiatiion, sls1 provider aware, pt medicated with nitro per order, oxygen applied at 2.5 liters nasal canula for sat of 88% on room air. 03:26 General: Patient appears comfortable at this time. States chest pain 1/10. No kas2 radiation. BP 99/55. Provider aware of patients condition. No further orders at this time. Call kidd within reach. Will continue to monitor.. 04:44 General: Appears in no apparent distress, comfortable, well nourished, well groomed, kas2 Behavior is appropriate for age, cooperative. Pain: Denies pain. Neurological: Level of Consciousness is awake, alert, Oriented to person, place, time. Cardiovascular: Rhythm is sinus rhythm No ectopy. Respiratory: Airway is patent Respiratory effort is even, unlabored, Respiratory pattern is regular, symmetrical. Derm: Skin is intact, Skin is dry, Skin is jaundiced, Skin temperature is warm. 05:23 General: Hospitalist in room assessing patient at this time.. kas2 05:53 General: Appears in no apparent distress, comfortable, well nourished, well groomed, kas2 Behavior is appropriate for age, cooperative. Pain: Denies pain. Neurological: Level of Consciousness is awake, alert, Oriented to person, place, time. Cardiovascular: Rhythm is sinus rhythm No ectopy. Respiratory: Airway is patent Respiratory effort is even, unlabored, Respiratory pattern is regular, symmetrical. Derm: Skin is intact, Skin is dry, Skin is pale, Skin temperature is warm. 06:49 General: Patient resting in bed sleeping at this time with at bedside. No apparent kas2 distress. Appears comfortable. Airway patent and respiratory effort even and unlabored. Call kidd within reach. Will continue to monitor.. Vital Signs: 01:42 BP 108 / 52 (auto/); kas2 01:43 Pulse 78 MON; Pulse Ox 92% ; kas2 01:44 BP 108 / 52; Pulse 81; Resp 18; Pulse Ox 93% on R/A; Weight 63.96 kg; Height 5 ft. 11 nn1 in. (180.34 cm); Pain 810; 01:57 BP 102 / 50 (auto/); kas2 01:57 Pulse 76 MON; Pulse Ox 91% ; kas2 02:05 Temp 98.3(O); kas2 02:12 BP 102 / 52 (auto/); kas2 02:12 Pulse 76 MON; Pulse Ox 93% ; kas2 02:27 BP 100 / 50 (auto/); sls1 02:27 Pulse 76 MON; Pulse Ox 92% ; sls1 02:42 BP 99 / 50 (auto/); sls1 02:57 BP 100 / 50 (auto/); sls1 03:09 BP 116 / 58 (auto/); sls1 03:15 Pulse 84 MON; Pulse Ox 89% ; sls1 03:24 BP 99 / 55 (auto/); kas2 03:24 Pulse 78 MON; Pulse Ox 96% ; kas2 03:24 Resp 20; Temp 98.3(O); Pain 10; kas2 04:11 BP 97 / 51 (auto/); kas2 04:11 Pulse 76 MON; Pulse Ox 96% ; kas2 05:24 BP 106 / 57 (auto/); kas2 05:24 Pulse 82 MON; Pulse Ox 96% ; kas2 05:39 BP 108 / 58 (auto/); kas2 05:39 Pulse 76 MON; Pulse Ox 98% ; kas2 05:54 BP 105 / 53 (auto/); kas2 05:54 Pulse 78 MON; Pulse Ox 96% ; kas2 06:09 BP 103 / 51 (auto/); kas2 06:09 Pulse 72 MON; Pulse Ox 96% ; kas2 06:24 BP 105 / 56 (auto/); kas2 06:24 Pulse 76 MON; Pulse Ox 97% ; kas2 06:39 BP 104 / 55 (auto/); kas2 06:39 Pulse 78 MON; Pulse Ox 97% ; kas2 01:44 Body Mass Index 19.67 (63.96 kg, 180.34 cm) nn1 Vitals: 01:44 Log In Time: March 23, 2016 at 01:33. nn1 ED Course: 01:33 Patient visited by Susannah Mandujano, Reg. hs2 01:33 Patient moved to Waiting hs2 01:37 Simi Holguin RN is Primary Nurse. nn1 01:37 Patient moved to 10 nn1 01:40 Triage Initiated nn1 01:44 Bernard Burnham MD is Attending Physician. br1 01:51 Patient visited by Shazia Lomax. ajs 01:51 science teacher on. Pulse ox on. NIBP on. kas2 01:51 EKG done. (by ED staff). Reviewed by Bernard Burnham MD. ajs 01:51 Inserted saline lock: 20 gauge in right antecubital area and blood collected. The kas2 patient tolerated the procedure well. No procedures done that require assistance. 01:53 Patient visited by Simi Holguin RN. kas2 01:53 Troponin Sent. kas2 01:53 Cardiac Injury Profile Sent. kas2 01:53 CBC with Diff Sent. kas2 01:53 Basic Metabolic Profile Sent. kas2 02:03 Patient visited by Bernard Burnham MD. br1 02:05 D-Dimer Quant Sent. kas2 02:38 Patient visited by Simi Holguin RN. kas2 03:00 portable chest Returned. EDMS 03:14 [facility] Payment Agreement was scanned into [employer] and attached to record. pm4 03:21 Patient visited by Nadia Deluca RN. sls1 03:21 The patient / caregiver is instructed regarding the plan of care and ED course. Patient sls1 has correct armband on for positive identification. Placed in gown. Bed in low position. Call light in reach. Side rails up X2. 03:21 O2 via nasal cannula 2.5LNC. sls1 03:28 Patient visited by Simi Holguin RN. kas2 04:06 Patient visited by Simi Holguin RN. kas2 04:24 CT Chest Angio R/O PE Returned. EDMS 04:38 Heidy Jose is Hospitalizing Provider. br1 04:47 Patient visited by Simi Holguin RN. kas2 04:52 Patient moved to Admit Hold daq 05:35 Patient visited by Simi Holguin RN. kas2 05:55 Patient visited by Simi Holguin RN. kas2 06:50 Patient moved to 13 sls1 06:50 Patient moved to Admit Hold [facility] 07:15 Patient visited by Simi Holguin RN. [facility] 13:38 T-Sheet-- Draft Copy was scanned into [employer] and attached to record. 17:21 Primary Nurse role handed off by Simi Holguin RN mcp Administered Medications: 02:10 Drug: Aspirin 324 mg [aspirin 81 mg chewable tablet (4 tabs)] Route: PO; [facility] 03:17 Drug: Nitrostat 0.4 mg [Nitrostat 0.4 mg sublingual tablet (1 tabs)] Route: Sublingual; [facility] Order Results: Lab Order: Basic Metabolic Profile; SPEC'M 03/23/16 01:49 Test: GLUCOSE, FASTING; Value: 103; Range: 83-110; Units: MG/DL; Status: F Test: BLOOD UREA NITROGEN; Value: 30; Range: 7-18; Abnormal: Above high normal; Units: MG/DL; Status: F Test: CREATININE FOR GFR; Value: 1.14; Range: 0.70-1.30; Units: MG/DL; Status: F Test: GLOMERULAR FILTRATION RATE; Value: > 60.0; Range: >35; Status: F Test: SODIUM LEVEL; Value: 142; Range: 136-145; Units: MEQ/L; Status: F Test: POTASSIUM SERUM; Value: 4.1; Range: 3.5-5.1; Units: MEQ/L; Status: F Test: CHLORIDE LEVEL; Value: 106; Range: 98-107; Units: MEQ/L; Status: F Test: CARBON DIOXIDE LEVEL; Value: 26; Range: 21-32; Units: MEQ/L; Status: F Test: ANION GAP; Value: 10; Range: 8-16; Units: MEQ/L; Status: F Test: CALCIUM LEVEL; Value: 9.1; Range: 8.8-10.2; Units: MG/DL; Status: F Test Note: ; Units are mL/min/1.73 m2 Chronic Kidney Disease Staging per NKF: Stage I & II GFR >=60 Normal to Mildly Decreased Stage III GFR 30-59 Moderately Decreased Stage IV GFR 15-29 Severely Decreased Stage V GFR <15 Very Little GFR Left ESRD GFR <15 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 Lab Order: CBC with Diff; SPEC'M 03/23/16 01:49 Test: WHITE BLOOD COUNT; Value: 49.9; Range: 4.0-10.0; Abnormal: Above upper panic limits; Units: K/mm3; Status: F Test: RED BLOOD COUNT; Value: 2.12; Range: 4.30-6.10; Abnormal: Below low normal; Units: M/mm3; Status: F Test: HEMOGLOBIN; Value: 7.7; Range: 14.0-18.0; Abnormal: Below low normal; Units: g/dl; Status: F Test: HEMATOCRIT; Value: 23.4; Range: 42.0-52.0; Abnormal: Below low normal; Units: %; Status: F Test: MEAN CORPUSCULAR VOLUME; Value: 110.6; Range: 80.0-96.0; Abnormal: Above high normal; Units: fl; Status: F Test: MEAN CORPUSCULAR HEMOGLOBIN; Value: 36.2; Range: 27.0-33.0; Abnormal: Above high normal; Units: pg; Status: F Test: MEAN CORPUSCULAR HGB CONC; Value: 32.7; Range: 32.0-36.5; Units: g/dl; Status: F Test: RED CELL DISTRIBUTION WIDTH; Value: 23.7; Range: 11.5-14.5; Abnormal: Above high normal; Units: %; Status: F Test: PLATELET COUNT, AUTOMATED; Value: 346; Range: 150-450; Units: k/mm3; Status: F Test: NEUTROPHILS; Value: 86; Range: 35-75; Abnormal: Above high normal; Units: %; Status: F Test: BANDS; Value: 3; Range: < 11; Units: %; Status: F Test: LYMPHOCYTES; Value: 2; Range: 16-52; Abnormal: Below low normal; Units: %; Status: F Test: MONOCYTES; Value: 1; Range: 0-8; Units: %; Status: F Test: METAMYELOCYTES; Value: 4; Range: 0-0; Abnormal: Above high normal; Units: %; Status: F Test: MYELOCYTES; Value: 3; Range: 0-0; Abnormal: Above high normal; Units: %; Status: F Test: PROMYELOCYTES; Value: 1; Range: 0-0; Abnormal: Above high normal; Units: %; Status: F Test: ANISOCYTOSIS; Value: 2+; Status: F Test: MACROCYTOSIS; Value: 2+; Status: F Lab Order: Cardiac Injury Profile; 03/23/16 01:49 Test: CPK CREATINE PHOSPHOKINASE; Value: 41; Range: 39-308; Units: U/L; Status: F Test: CK-MB VALUE MASS; Value: 1.1; Range: 0.0-3.6; Units: NG/ML; Status: F Test: MB/CK RELATIVE INDEX; Value: 2.68; Range: < OR =4; Status: F Test Note: ; DIAGNOSIS CRITERIA MMB ng/ml Relative Index (RI) NON-AMI < or = 5 N/A ZEPEDA ZONE > 5 < or = 4 AMI > 5 > 4 Lab Order: Troponin; 03/23/16 01:49 Test: TROPONIN I; Value: 0.02; Range: < 0.10; Units: NG/ML; Status: F Test Note: ; Troponin I Reference Interval for GT Channel LOCI: 99th Percentile= 0.00-0.045 ng/ml Risk Stratification: <= 0.10 ng/ml Decreased Risk for Adverse Clinical Events. 0.10-1.50 ng/ml Increased Risk for Adverse Clinical Events. Evaluation of additional criterion and/or repeat testing in 2-6 hours is suggested to rule out myocardial damage. >= 1.50 ng/ml Indicative of Myocardial Injury. Lab Order: D-Dimer Quant; 03/23/16 01:49 Test: D-DIMER QUANT; Value: 790.5; Range: <500; Abnormal: Above high normal; Units: ng/ml; Status: F Lab Order: PLATELET ESTIMATE; 03/23/16 01:49 Test: PLATELET ESTIMATE; Value: NORMAL; Range: NORMAL; Status: F Lab Order: CARDIAC MARKER PANEL; 03/23/16 07:28 Test: CPK CREATINE PHOSPHOKINASE; Value: 101; Range: 39-308; Abnormal: Delta; Units: U/L; Status: F Test: CK-MB VALUE MASS; Value: 12.8; Range: 0.0-3.6; Abnormal: Above high normal; Units: NG/ML; Status: F Test: MB/CK RELATIVE INDEX; Value: 12.67; Range: < OR =4; Abnormal: Above high normal; Status: F Test: TROPONIN I; Value: 0.98; Range: < 0.10; Abnormal: High; Units: NG/ML; Status: F Test Note: ; DIAGNOSIS CRITERIA MMB ng/ml Relative Index (RI) NON-AMI < or = 5 N/A ZEPEDA ZONE > 5 < or = 4 AMI > 5 > 4 Lab Order: CARDIAC MARKER PANEL; [facility] 03/23/16 15:46 Test: CPK CREATINE PHOSPHOKINASE; Value: 188; Range: 39-308; Abnormal: Delta; Units: U/L; Status: F Test: CK-MB VALUE MASS; Value: 23.6; Range: 0.0-3.6; Abnormal: Above high normal; Units: NG/ML; Status: F Test: MB/CK RELATIVE INDEX; Value: 12.55; Range: < OR =4; Abnormal: Above high normal; Status: F Test: TROPONIN I; Value: 3.16; Range: < 0.10; Abnormal: Critical Delta High; Units: NG/ML; Status: F Test Note: ; DIAGNOSIS CRITERIA MMB ng/ml Relative Index (RI) NON-AMI < or = 5 N/A ZEPEDA ZONE > 5 < or = 4 AMI > 5 > 4 Lab Order: TYPE & SCREEN; [facility] 03/23/16 07:28 Test: BLOOD TYPE; Value: A POS; Status: F Test: AB SCREEN (INDIRECT STEVEN)GEL; Value: NEGATIVE; Status: F Test: IMMEDIATE SPIN CROSSMATCH; Value: [id number] A POSITIVE Compatible? Y; Status: F Test: IMMEDIATE SPIN CROSSMATCH; Value: [id number] A POSITIVE Compatible? Y; Status: F Lab Order: HEMOGLOBIN & HEMATOCRIT; [facility] 03/23/16 18:03 Test: HEMOGLOBIN; Value: 10.2; Range: 14.0-18.0; Units: g/dl; Status: F Test: HEMATOCRIT; Value: 29.6; Range: 42.0-52.0; Abnormal: Below low normal; Units: %; Status: F Radiology Order: portable chest Test: portable chest REASON FOR EXAMINATION: Chest Pain; Clinical: Chest pain.; ; Comparison: 02/24/2017.; ; Findings: Mediastinum and cardiac silhouette are stable with mild cardiomegaly; again suggested. Lung funes demonstrate chronic interstitial changes without; acute consolidation, effusion, or pneumothorax. Skeletal structures stable.; Prior sternotomy again noted.; ; Impression:; Chronic stable changes. No acute cardiopulmonary process.; ; ; Signed by; Carlos Trevino MD 03/23/2016 02:33 A; Radiology Order: CT Chest Angio R/O PE Test: CT Chest Angio R/O PE REASON FOR EXAMINATION: Chest Pain; ; CLINICAL HISTORY: Dyspnea, exclude PE.; TECHNIQUE: Multiple incremental axial, coronal and oblique images are obtained from the thoracic inle; t to the upper abdomen. Intravenous contrast material was administered as per pulmonary embolism prot; ocol.; COMMENTS:; Comparison is made to the prior exam performed on 02/25/2016.; There is excellent opacification of pulmonary arterial system without evidence for pulmonary embolism; . Aorta is of normal caliber without evidence for aneurysm. Enlarged pulmonary artery suggestive of; pulmonary hypertension. Suboptimal opacification of the aorta.; There is no evidence of pleural or parenchymal mass. There are minimal residual pleural effusions. Pa; ssive atelectatic airspace disease of the lower lobes. No change of bilateral ground glass densities.; There is no evidence of hilar or mediastinal lymphadenopathy. The heart remains enlarged and great v; essels are engorged.; Images of the upper abdomen demonstrate no evidence of adrenal mass.; The bony structures are free of lytic or blastic lesions. Multilevel degenerative changes are seen in; volving the visualized thoracolumbar spine.; Scattered calcifications are seen involving the aorta and major branches compatible with atherosclero; sis.; Mild splenomegaly.; IMPRESSION:; No evidence for pulmonary embolism.; Decreased pleural effusions with minimal residual rim.; Groundglass and densities are unchanged.; No change in cardiomegaly.; Thank you for your kind referral of this patient.; ; Outcome: 04:38 Decision to Hospitalize by Provider. br1 19:48 Patient left the ED. cz Signatures: Dispatcher [employer] EDMS Rema Grossman RN RN mcp [facility], Deborah, RN RN daq Zecher, Calvin, RN RN cz Barnhardt, Gloria, Wander Cassidyian, MD MD br1 Shazia Lomax Shannon RN RN sls1 Mary Gallegso RN RN nn1 Susannah Mandujano, Reg Reg hs2 Simi Holguin RN RN kas2 Jovanny Lowry, Reg Reg pm4 MTDD
--- NOTE | 2016-03-23 19:49 | EDDOCDS ---
Physician Documentation [facility] Name: Tr Denson Age: 80 yrs Sex: Male : 1935 Arrival Date: 03/23/2016 Time: 01:32 Bed Admit Hold Private MD: Disposition: 03/23/16 04:38 Hospitalization ordered by Heidy Jose for Inpatient Admission. Preliminary diagnosis are Chest pain, unspecified - Rule Out Acute Coronary Syndrome, Anemia, unspecified. - [facility] - Status is Inpatient Admission. cz - Condition is Stable. - Problem is new. - Symptoms are unchanged. Historical: - Allergies: No known drug Allergies; - Home Meds: 1. aspirin 81 mg Oral chew 1 tab once daily 2. atorvastatin 40 mg oral tab 1 tab once daily 3. captopril 12.5 mg Oral tab 0.5 tab 2 times per day 4. Daily-Esteban oral tab daily 5. furosemide 20 mg Oral tab 1 tab once daily 6. hydroxyurea 500 mg Oral cap every day except tues everyday except tues 7. Jadenu 360 mg oral tab 1 tab once daily 8. metoprolol succinate 25 mg Tb24 1 tab once daily 9. Plavix 75 mg Oral tab 1 tab once daily 10. Procrit 40,000 unit/mL Inj soln 3 times per wk as needed 11. sertraline 50 mg oral tab 1 tab once daily 12. nitroglycerin 0.4 mg SL subl 1 tab every 5 minutes 13. Nitro-Bid 2 % transdermal oint 1 inch daily - PMHx: Anemia; aortic anyeursym; CVA; Essential Thronbocytemia; Hypercholesterolemia; Hypertension; Myelodysplasia; [place]; - PSHx: open heart- aortic valve replacement - 2013; Cardiac Ablation; Tonsillectomy; - Social history: Smoking status: Patient states former smoker of tobacco. No barriers to communication noted, The patient speaks fluent Finnish, Speaks appropriately for age. - : The pt / caregiver states he / she is on anticoagulants: Plavix. Home medication list is obtained from family members. - Exposure Risk Screening:: None identified. Vital Signs: 03/23 01:42 BP 108 / 52 (auto/); kas2 01:43 Pulse 78 MON; Pulse Ox 92% ; kas2 01:44 BP 108 / 52; Pulse 81; Resp 18; Pulse Ox 93% on R/A; Weight 63.96 kg / 141.01 lbs; nn1 Height 5 ft. 11 in. (180.34 cm); Pain 8; 01:57 BP 102 / 50 (auto/); kas2 01:57 Pulse 76 MON; Pulse Ox 91% ; kas2 02:05 Temp 98.3(O); kas2 02:12 BP 102 / 52 (auto/); kas2 02:12 Pulse 76 MON; Pulse Ox 93% ; kas2 02:27 BP 100 / 50 (auto/); sls1 02:27 Pulse 76 MON; Pulse Ox 92% ; sls1 02:42 BP 99 / 50 (auto/); sls1 02:57 BP 100 / 50 (auto/); sls1 03:09 BP 116 / 58 (auto/); sls1 03:15 Pulse 84 MON; Pulse Ox 89% ; sls1 03:24 BP 99 / 55 (auto/); kas2 03:24 Pulse 78 MON; Pulse Ox 96% ; kas2 03:24 Resp 20; Temp 98.3(O); Pain 03/08; kas2 04:11 BP 97 / 51 (auto/); kas2 04:11 Pulse 76 MON; Pulse Ox 96% ; kas2 05:24 BP 106 / 57 (auto/); kas2 05:24 Pulse 82 MON; Pulse Ox 96% ; kas2 05:39 BP 108 / 58 (auto/); kas2 05:39 Pulse 76 MON; Pulse Ox 98% ; kas2 05:54 BP 105 / 53 (auto/); kas2 05:54 Pulse 78 MON; Pulse Ox 96% ; kas2 06:09 BP 103 / 51 (auto/); kas2 06:09 Pulse 72 MON; Pulse Ox 96% ; kas2 06:24 BP 105 / 56 (auto/); kas2 06:24 Pulse 76 MON; Pulse Ox 97% ; kas2 06:39 BP 104 / 55 (auto/); kas2 06:39 Pulse 78 MON; Pulse Ox 97% ; kas2 01:44 Body Mass Index 19.67 (63.96 kg, 180.34 cm) nn1 MDM: 01:37 ECG WITH READING ER PHYS+CARDIAG ordered. EDMS 01:45 Deputy Bailiff/Pulse Ox/q 30 min VS ordered. br1 01:45 IV Saline Lock ordered. br1 01:45 Rhythm Strip to chart ordered. br1 01:45 Undress patient appropriately for examination ordered. br1 01:45 Basic Metabolic Profile Ordered. EDMS 01:45 CBC with Diff Ordered. EDMS 01:45 Cardiac Injury Profile Ordered. EDMS 01:46 Troponin Ordered. EDMS 01:46 portable chest Ordered. EDMS 01:57 Oral Temp ordered. br1 02:04 Aspirin 324 mg PO once ordered. br1 02:04 D-Dimer Quant Ordered. EDMS 02:16 DIFFERENTIAL NO CHARGE Ordered. EDMS 02:16 PLATELET ESTIMATE Ordered. EDMS 02:33 Financial registration complete. pm4 02:48 Basic Metabolic Profile Reviewed. br1 02:48 CBC with Diff Reviewed. br1 02:48 D-Dimer Quant Reviewed. br1 02:48 Cardiac Injury Profile Reviewed. br1 02:48 Troponin Reviewed. br1 02:48 PLATELET ESTIMATE Reviewed. br1 02:50 CT Chest Angio R/O PE Ordered. EDMS 03:14 [facility] Payment Agreement was scanned into [employer] and attached to record. pm4 03:14 Nitrostat 0.4 mg Sublingual once ordered. br1 03:26 BED REQUEST+ADM ordered. EDMS 04:48 CARDIAC MARKER PANEL Ordered. EDMS 04:48 CARDIAC MARKER PANEL Ordered. EDMS 04:51 Admission / Observation Status ordered. EDMS 04:51 2 GRAM SODIUM DIET ordered. EDMS 05:46 PACKED CELLS Ordered. EDMS 05:46 TYPE & SCREEN Ordered. EDMS 05:47 ECHOCARD,DOPPLER/COLOR FLOW ordered. EDMS 13:38 T-Sheet-- Draft Copy was scanned into [employer] and attached to record. gb 16:59 HEMOGLOBIN & HEMATOCRIT Ordered. EDMS 19:31 CARDIAC MARKER PANEL Ordered. EDMS 19:31 CBC WITH DIFFERENTIAL Ordered. EDMS 19:31 BASIC METABOLIC PROFILE Ordered. EDMS 19:31 MAGNESIUM LEVEL Ordered. EDMS Administered Medications: 02:10 Drug: Aspirin 324 mg [aspirin 81 mg chewable tablet (4 tabs)] Route: PO; kas2 03:17 Drug: Nitrostat 0.4 mg [Nitrostat 0.4 mg sublingual tablet (1 tabs)] Route: Sublingual; [facility] Signatures: Dispatcher [employer] EDMS Kelsey Becker RN RN Giorgi Nathan RN RN cz Barnhardt, Gloria, Reg Reg gb Bernard Burnham MD MD br1 Gemini ColbertRN RN aa3 Mary Gallegos,RN RN nn1 Deshawn Coombs RN RN mts Jovanny Lowry, Reg Reg pm4 Nadia Deluca RN sls1 Simi Holguin RN kas2 The chart was reviewed and I authenticate all verbal orders and agree with the evaluation and treatment provided.Attachments: 03:14 [facility] Payment Agreement pm4 13:38 T-Sheet-- Draft Copy gb MTDD
[2016-03-23] MEDS ORDERED: FUROSEMIDE 40 MG/4 ML VIAL (J1940) IV ONE (21:30)
[2016-03-23] MEDS: NITROGLYCERIN 0.4 MG/HR PATCH TD SCH (21:49)
[2016-03-23] MEDS: ENOXAPARIN 60 MG/0.6 ML SYR (J1650) SC SCH (21:49)
[2016-03-23] MEDS: ATORVASTATIN 20 MG TAB PO SCH (21:50)
[2016-03-24] VITALS (12 sets, daily range): BP systolic 81–122; BP diastolic 42–61
[2016-03-24 05:38] LABS: DIFF SLIDE NUMBER 64; MEAN CORPUSCULAR HEMOGLOBIN 35.1 pg (27.0-33.0); MEAN CORPUSCULAR HGB CONC 32.3 g/dl (32.0-36.5); MEAN CORPUSCULAR VOLUME 108.7 fl (80.0-96.0); PLATELET COUNT, AUTOMATED 297 k/mm3 (150-450)
[2016-03-24] MEDS: NS 1,000 ML IV SCH (05:42)
[2016-03-24 05:45] LABS: WHITE BLOOD COUNT 54.4 K/mm3 (4.0-10.0)
[2016-03-24 05:47] LABS: ANION GAP 9 MEQ/L (8-16); BLOOD UREA NITROGEN 29 MG/DL (7-18); CALCIUM LEVEL 8.5 MG/DL (8.8-10.2); CARBON DIOXIDE LEVEL 28 MEQ/L (21-32); CHLORIDE LEVEL 106 MEQ/L (98-107); CREATININE FOR GFR 1.02 MG/DL (0.70-1.30); GLOMERULAR FILTRATION RATE > 60.0 (>35); GLUCOSE, FASTING 100 MG/DL (83-110); MAGNESIUM LEVEL 1.6 MG/DL (1.8-2.4); POTASSIUM SERUM 3.8 MEQ/L (3.5-5.1); SODIUM LEVEL 143 MEQ/L (136-145)
[2016-03-24 06:36] LABS: BANDS 2 % (< 11); BASOPHILS 1 % (0-4); EOSINOPHILS 1 % (0-5)
[2016-03-24 06:37] LABS: ANISOCYTOSIS 2+; DOHLE BODIES 1+
--- NOTE | 2016-03-24 06:42 | ECGEPIP ---
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
[2016-03-24] MEDS ORDERED: MAG SULF 1GM/100ML (MAG RUN) 1 GM in APPROPRIATE DILUENT 1 EA IV ONE (06:45)
[2016-03-24] MEDS: CLOPIDOGREL 75 MG TAB PO SCH (08:17)
[2016-03-24] MEDS: SERTRALINE HCL 50 MG TAB PO SCH (08:17)
[2016-03-24] MEDS: HYDROXYUREA 500 MG CAP PO SCH (08:17)
[2016-03-24] MEDS: ASPIRIN 81 MG ENTERIC TAB PO SCH (08:17)
[2016-03-24] MEDS: MULTIVITAMINS/MINERALS THERAP 1 TAB PO SCH (08:17)
[2016-03-24] MEDS: ENOXAPARIN 60 MG/0.6 ML SYR (J1650) SC SCH ×2 (08:18→21:23)
[2016-03-24] MEDS: METOPROLOL TART 25 MG TABLET PO SCH (08:18)
[2016-03-24] MEDS: CAPTOpril 6.25 MG PER 1/2 TABLET PO SCH ×2 (08:18→21:23)
[2016-03-24] MEDS: FUROSEMIDE 20 MG TAB PO SCH (08:19)
[2016-03-24] MEDS ORDERED: FUROSEMIDE 40 MG/4 ML VIAL (J1940) IV ONE (08:30)
[2016-03-24] MEDS ORDERED: BISACODYL 10 MG SUPP PR PRN (08:30)
--- NOTE | 2016-03-24 08:33 | IPNPDOC ---
Assessment/Plan Date Seen The patient was seen on 03/24/16. Problems Problems: (1) NSTEMI (non-ST elevated myocardial infarction) Status: Acute Problem Text: Secondary to severe anemia in this patient with severe obstructive coronary artery disease receiving prbcs patient had cardiac cath in the medical center in january and found to have extensive severe obstructive coronary artery disease and was recommended CABG. blockages could not be opened by stenting. However patient is medically very high risk for surgery so was recommended only medical management. Spoke with security test engineer in the medical center as well as dr Mckinney recommended lovenox for 3 days. and continue other current therapy. will continue asa, plavix, betablocker and statin (2) CAD (coronary artery disease) Status: Chronic (3) Myelodysplasia (myelodysplastic syndrome) Status: Chronic Problem Text: now with severe anemia received 2 uits prbc will give 1 more unit elevated wbc usually between 30K to 50K (4) History of CVA with residual deficit Status: Chronic (5) Hx of supraventricular tachycardia Status: Resolved Problem Text: s/p ablation (6) Hyperlipidemia Status: Chronic Problem Text: continue statin (7) Hypertension Status: Chronic Problem Text: continue betablocker (8) CHF (congestive heart failure) Status: Chronic Problem Text: will give iv lasix with blood transfusion awaiting echo (9) PAD (peripheral artery disease) Status: Chronic Plan / VTE VTE Prophylaxis Ordered?: Yes Subjective Review of Systems CC/HPI The patient is a 80-year-old male admitted with a reason for visit of Chest Pain. Events since last encounter no further chest pain over the last 24 hours, had some fluid overload after 2 units of prbc yesterday , no complaints today , no fever or chills, no chest pain or sob , no nausea or vomiting or diarrhea. Objective Physical Examination General Exam: Positive: Alert, No Acute Distress Eye Exam: Positive: Conjunctiva & lids normal, EOMI, PERRLA, Negative: Sclera icteric ENT Exam: Positive: Atraumatic, Mucous membr. moist/pink, Pharynx Normal Neck Exam: Positive: Supple, Negative: JVD, thyromegaly Chest Exam: Positive: Rales Heart Exam: Positive: Normal S1, Normal S2, Rate Normal, Regular Rhythm, Negative: Murmurs, Rubs Telemetry: Positive: No significant arrhythmia Abdomen Exam: Positive: Normal bowel sounds, Soft, Negative: Hepatospenomegaly, Tenderness Extremity Exam: Positive: Normal pulses, Negative: Clubbing, Cyanosis, Edema Vital Signs/I&O Vital Signs Date Time Temp Pulse Resp B/P Pulse Ox O2 Delivery O2 Flow Rate FiO2 03/24/16 08:18 82 110/54 03/24/16 04:00 95.2 20 94 Nasal Cannula 3.0 I&O- Last 24 Hours up to 6 AM 03/24/16 06:00 Intake Total 2881 ml Output Total 1050 ml Balance 1831 ml Laboratory Data Labs 24H Laboratory Tests 2 03/23/16 15:46: Creatine Kinase MB 23.6H, Creatine Kinase MB Relative Index 12.55H, Total Creatine Kinase 188#, Troponin I 3.16#*H 03/24/16 00:19: Creatine Kinase MB 12.4H, Creatine Kinase MB Relative Index 9.76H, Total Creatine Kinase 127, Troponin I 2.82*H 03/24/16 05:19: Anion Gap 9, Anisocytosis 2+, Band Neutrophils 2, Basophils (Manual) 1, Blood Urea Nitrogen 29H, Creatinine 1.02, Sodium Level 143, Potassium Level 3.8, Chloride Level 106, Carbon Dioxide Level 28, Calcium Level 8.5L, Dohle Bodies 1+ , Eosinophils (Manual) 1, Glomerular Filtration Rate > 60.0, Lymphocytes (Manual ) 3L, Macrocytosis 2+, Magnesium Level 1.6L, Metamyelocytes 2H, Myelocytes 2H, Neutrophils 89H, Platelet Estimate NORMAL CBC/BMP Laboratory Tests 03/23/16 18:03 03/24/16 05:19 Calcium Level 8.5 L, Red Blood Count 2.52 L, Mean Corpuscular Volume 108.7 H, Mean Corpuscular Hemoglobin 35.1 H, Mean Corpuscular Hemoglobin Concent 32.3, Red Cell Distribution Width 26.0 H MONY HALL MD Mar 24, 2016 08:33
[2016-03-24] MEDS: SENOKOT S TAB PO SCH ×2 (12:00→19:15)
[2016-03-24] MEDS ORDERED: FUROSEMIDE 20 MG/2 ML VIAL (J1940) IV ONE (17:15)
[2016-03-24] MEDS: NITROGLYCERIN 0.4 MG/HR PATCH TD SCH (21:22)
[2016-03-24] MEDS: ATORVASTATIN 20 MG TAB PO SCH (21:23)
--- NOTE | 2016-03-24 21:36 | ECHO ---
DATE OF PROCEDURE: 03/24/2016 REFERRING PHYSICIAN: Dr. Heidy Jose INDICATION: Heart failure, unspecified. HEIGHT: 180 cm WEIGHT: 64 kg MEASUREMENTS: Left atrium: 3.9 cm Ventricular septum: 1.00 cm Posterior wall: 1.00 cm Left ventricle diastole: 5.8 cm Aortic root: 3.1 cm Inferior vena cava: 1.5 cm DOPPLER MEASUREMENTS: Trace aortic regurgitation. No aortic stenosis. Aortic valve velocity: 285 cm/s LVOT velocity: 128 cm/s Aortic valve VTI: 57.8 cm LVOT vitamin: 27.6 cm Peak aortic gradient: 33 mmHg Mean aortic gradient: 15 mmHg Moderate mitral regurgitation. Mitral E velocity: 88.4 cm/s Mitral A velocity: 74.5 cm/s Mitral deceleration time: 250 ms Moderate tricuspid regurgitation. Estimated right ventricle systolic pressure 33 mmHg assuming a right atrial pressure of 5 mmHg. MITRAL ANNULAR TISSUE DOPPLER: E prime septal: 5.9 cm/s E prime lateral: 7.2 cm/s DESCRIPTION: Rhythm was sinus. Image quality was fair. No pericardial effusion. This is a 2D, M-mode, color flow Doppler and pulse wave Doppler examination that included mitral annular tissue Doppler. CONCLUSIONS: 1. Mild global left ventricle (LV) hypokinesis and mild LV dilatation. Mild reduction overall systolic function. Left ventricular ejection fraction (LVEF) 45%-50% by visual estimate. Grade II LV diastolic dysfunction (pseudonormal LV filling pattern). 2. Status post aortic valve replacement with bioprosthesis which was well seated. No aortic valve stenosis. Trace central aortic valve regurgitation. 3. Mild mitral annular calcification. Moderate mitral regurgitation. 4. Suggestive of mild elevation of estimated right ventricle systolic pressure. Moderate tricuspid regurgitation.
[2016-03-25 04:50] VITALS: BP 113/56
[2016-03-25 06:09] LABS: ANION GAP 8 MEQ/L (8-16); BLOOD UREA NITROGEN 30 MG/DL (7-18); CALCIUM LEVEL 8.7 MG/DL (8.8-10.2); CARBON DIOXIDE LEVEL 28 MEQ/L (21-32); CHLORIDE LEVEL 104 MEQ/L (98-107); GLOMERULAR FILTRATION RATE > 60.0 (>35); GLUCOSE, FASTING 87 MG/DL (83-110); MAGNESIUM LEVEL 1.9 MG/DL (1.8-2.4); POTASSIUM SERUM 3.7 MEQ/L (3.5-5.1); SODIUM LEVEL 140 MEQ/L (136-145)
[2016-03-25 06:19] LABS: DIFF SLIDE NUMBER 41; MEAN CORPUSCULAR HEMOGLOBIN 33.1 pg (27.0-33.0); MEAN CORPUSCULAR HGB CONC 32.2 g/dl (32.0-36.5); PLATELET COUNT, AUTOMATED 255 k/mm3 (150-450); RED CELL DISTRIBUTION WIDTH 23.8 % (11.5-14.5)
[2016-03-25 07:26] LABS: WHITE BLOOD COUNT 43.3 K/mm3 (4.0-10.0)
[2016-03-25 07:28] LABS: MEAN CORPUSCULAR VOLUME 102.8 fl (80.0-96.0)
[2016-03-25 08:00] VITALS: BP 112/54
[2016-03-25] MEDS: ASPIRIN 81 MG ENTERIC TAB PO SCH (08:14)
[2016-03-25] MEDS: SENOKOT S TAB PO SCH ×2 (08:14→20:50)
[2016-03-25] MEDS: MULTIVITAMINS/MINERALS THERAP 1 TAB PO SCH (08:14)
[2016-03-25] MEDS: ENOXAPARIN 60 MG/0.6 ML SYR (J1650) SC SCH ×2 (08:14→20:53)
[2016-03-25] MEDS: CLOPIDOGREL 75 MG TAB PO SCH (08:14)
[2016-03-25] MEDS: HYDROXYUREA 500 MG CAP PO SCH (08:15)
[2016-03-25] MEDS: SERTRALINE HCL 50 MG TAB PO SCH (08:15)
[2016-03-25] MEDS: CAPTOpril 6.25 MG PER 1/2 TABLET PO SCH ×2 (08:16→20:50)
[2016-03-25] MEDS: METOPROLOL TART 12.5 MG PER 1/2 TAB PO SCH (08:17)
[2016-03-25 08:41] LABS: BANDS 4 % (< 11); EOSINOPHILS 1 % (0-5)
[2016-03-25 08:44] LABS: DOHLE BODIES 1+
[2016-03-25] MEDS: SODIUM CHLORIDE NASAL 0.65% SPRAY BTL (OCEAN) SCH ×2 (09:00→20:52)
[2016-03-25] MEDS: FUROSEMIDE 20 MG TAB PO SCH (09:16)
--- NOTE | 2016-03-25 11:35 | IPNPDOC ---
Assessment/Plan Date Seen The patient was seen on 03/25/16. Problems Problems: (1) NSTEMI (non-ST elevated myocardial infarction) Status: Acute Problem Text: Secondary to severe anemia in this patient with severe obstructive coronary artery disease receiving prbcs patient had cardiac cath in [facility] in january and found to have extensive severe obstructive coronary artery disease and was recommended CABG. blockages could not be opened by stenting. However patient is medically very high risk for surgery so was recommended only medical management. Spoke with truck driver instructor in [facility] as well as dr Mckinney recommended lovenox for 3 days. and continue other current therapy. will continue asa, plavix, betablocker and statin (2) CAD (coronary artery disease) Status: Chronic (3) Myelodysplasia (myelodysplastic syndrome) Status: Chronic Problem Text: now with severe anemia received 2 uits prbc will give 1 more unit elevated wbc usually between 30K to 50K (4) History of CVA with residual deficit Status: Chronic (5) Hx of supraventricular tachycardia Status: Resolved Problem Text: s/p ablation (6) Hyperlipidemia Status: Chronic Problem Text: continue statin (7) Hypertension Status: Chronic Problem Text: continue betablocker (8) CHF (congestive heart failure) Status: Chronic Problem Text: will give iv lasix with blood transfusion awaiting echo (9) PAD (peripheral artery disease) Status: Chronic Plan / VTE VTE Prophylaxis Ordered?: Yes Subjective Review of Systems CC/HPI The patient is a 80-year-old male admitted with a reason for visit of Chest Pain. Events since last encounter denied any chest pain or sob , had a big nosebleed this am , no nausea or vomiting or diarrhea, has some chronic urinary retention , bladder scan post void was 175 cc. Objective Physical Examination General Exam: Positive: Alert, No Acute Distress Eye Exam: Positive: Conjunctiva & lids normal, EOMI, PERRLA, Negative: Sclera icteric ENT Exam: Positive: Atraumatic, Mucous membr. moist/pink, Pharynx Normal Neck Exam: Positive: Supple, Negative: JVD, thyromegaly Chest Exam: Positive: Rales Heart Exam: Positive: Normal S1, Normal S2, Rate Normal, Regular Rhythm, Negative: Murmurs, Rubs Telemetry: Positive: No significant arrhythmia Abdomen Exam: Positive: Normal bowel sounds, Soft, Negative: Hepatospenomegaly, Tenderness Extremity Exam: Positive: Normal pulses, Negative: Clubbing, Cyanosis, Edema Vital Signs/I&O Vital Signs Date Time Temp Pulse Resp B/P Pulse Ox O2 Delivery O2 Flow Rate FiO2 03/25/16 08:17 76 03/25/16 08:16 121/54 03/25/16 08:00 Nasal Cannula 1.0 03/25/16 08:00 96.5 20 94 I&O- Last 24 Hours up to 6 AM 03/25/16 06:00 Intake Total 660 ml Output Total 1225 ml Balance -565 ml Laboratory Data Labs 24H Laboratory Tests 2 03/25/16 05:39: Anion Gap 8, Band Neutrophils 4, Blood Urea Nitrogen 30H, Creatinine 1.00, Sodium Level 140, Potassium Level 3.7, Chloride Level 104, Carbon Dioxide Level 28, Calcium Level 8.7L, Dohle Bodies 1+, Eosinophils (Manual) 1, Glomerular Filtration Rate > 60.0, Lymphocytes (Manual) 4L, Macrocytosis 1+, Magnesium Level 1.9, Metamyelocytes 5H, Myelocytes 3H, Neutrophils 83H, Platelet Estimate NORMAL, Troponin I 1.91#*H CBC/BMP Laboratory Tests 03/24/16 18:02 03/25/16 05:39 Calcium Level 8.7 L, Red Blood Count 2.73 L, Mean Corpuscular Volume 102.8 #H, Mean Corpuscular Hemoglobin 33.1 H, Mean Corpuscular Hemoglobin Concent 32.2, Red Cell Distribution Width 23.8 H MONY HALL MD Mar 25, 2016 11:35
[2016-03-25 12:00] VITALS: BP 117/56
[2016-03-25 16:00] VITALS: BP 117/55
[2016-03-25 20:00] VITALS: BP 105/57
[2016-03-25] MEDS: ATORVASTATIN 20 MG TAB PO SCH (20:50)
--- NOTE | 2016-03-25 20:50 | EDDOCDS ---
Physician Documentation [facility] Name: Tr Denson Age: 80 yrs Sex: Male : 1935 Arrival Date: 03/23/2016 Time: 01:32 Bed Admit Hold Private MD: Disposition: 03/23/16 04:38 Hospitalization ordered by Heidy Jose for Inpatient Admission. Preliminary diagnosis are Chest pain, unspecified - Rule Out Acute Coronary Syndrome, Anemia, unspecified. - [facility] - Status is Inpatient Admission. cz - Condition is Stable. - Problem is new. - Symptoms are unchanged. Historical: - Allergies: No known drug Allergies; - Home Meds: 1. aspirin 81 mg Oral chew 1 tab once daily 2. atorvastatin 40 mg oral tab 1 tab once daily 3. captopril 12.5 mg Oral tab 0.5 tab 2 times per day 4. Daily-Esteban oral tab daily 5. furosemide 20 mg Oral tab 1 tab once daily 6. hydroxyurea 500 mg Oral cap every day except tues everyday except tues 7. Jadenu 360 mg oral tab 1 tab once daily 8. metoprolol succinate 25 mg Tb24 1 tab once daily 9. Plavix 75 mg Oral tab 1 tab once daily 10. Procrit 40,000 unit/mL Inj soln 3 times per wk as needed 11. sertraline 50 mg oral tab 1 tab once daily 12. nitroglycerin 0.4 mg SL subl 1 tab every 5 minutes 13. Nitro-Bid 2 % transdermal oint 1 inch daily - PMHx: Anemia; aortic anyeursym; CVA; Essential Thronbocytemia; Hypercholesterolemia; Hypertension; Myelodysplasia; NE; - PSHx: open heart- aortic valve replacement - 2013; Cardiac Ablation; Tonsillectomy; - Social history: Smoking status: Patient states former smoker of tobacco. No barriers to communication noted, The patient speaks fluent [place], Speaks appropriately for age. - : The pt / caregiver states he / she is on anticoagulants: Plavix. Home medication list is obtained from family members. - Exposure Risk Screening:: None identified. Vital Signs: 03/23 01:42 BP 108 / 52 (auto/); kas2 01:43 Pulse 78 MON; Pulse Ox 92% ; kas2 01:44 BP 108 / 52; Pulse 81; Resp 18; Pulse Ox 93% on R/A; Weight 63.96 kg / 141.01 lbs; nn1 Height 5 ft. 11 in. (180.34 cm); Pain 8; 01:57 BP 102 / 50 (auto/); kas2 01:57 Pulse 76 MON; Pulse Ox 91% ; kas2 02:05 Temp 98.3(O); kas2 02:12 BP 102 / 52 (auto/); kas2 02:12 Pulse 76 MON; Pulse Ox 93% ; kas2 02:27 BP 100 / 50 (auto/); sls1 02:27 Pulse 76 MON; Pulse Ox 92% ; sls1 02:42 BP 99 / 50 (auto/); sls1 02:57 BP 100 / 50 (auto/); sls1 03:09 BP 116 / 58 (auto/); sls1 03:15 Pulse 84 MON; Pulse Ox 89% ; sls1 03:24 BP 99 / 55 (auto/); kas2 03:24 Pulse 78 MON; Pulse Ox 96% ; kas2 03:24 Resp 20; Temp 98.3(O); Pain 03/08; kas2 04:11 BP 97 / 51 (auto/); kas2 04:11 Pulse 76 MON; Pulse Ox 96% ; kas2 05:24 BP 106 / 57 (auto/); kas2 05:24 Pulse 82 MON; Pulse Ox 96% ; kas2 05:39 BP 108 / 58 (auto/); kas2 05:39 Pulse 76 MON; Pulse Ox 98% ; kas2 05:54 BP 105 / 53 (auto/); kas2 05:54 Pulse 78 MON; Pulse Ox 96% ; kas2 06:09 BP 103 / 51 (auto/); kas2 06:09 Pulse 72 MON; Pulse Ox 96% ; kas2 06:24 BP 105 / 56 (auto/); kas2 06:24 Pulse 76 MON; Pulse Ox 97% ; kas2 06:39 BP 104 / 55 (auto/); kas2 06:39 Pulse 78 MON; Pulse Ox 97% ; kas2 01:44 Body Mass Index 19.67 (63.96 kg, 180.34 cm) nn1 MDM: 01:37 ECG WITH READING ER PHYS+CARDIAG ordered. EDMS 01:45 Mold Technician/Pulse Ox/q 30 min VS ordered. br1 01:45 IV Saline Lock ordered. br1 01:45 Rhythm Strip to chart ordered. br1 01:45 Undress patient appropriately for examination ordered. br1 01:45 Basic Metabolic Profile Ordered. EDMS 01:45 CBC with Diff Ordered. EDMS 01:45 Cardiac Injury Profile Ordered. EDMS 01:46 Troponin Ordered. EDMS 01:46 portable chest Ordered. EDMS 01:57 Oral Temp ordered. br1 02:04 Aspirin 324 mg PO once ordered. br1 02:04 D-Dimer Quant Ordered. EDMS 02:16 DIFFERENTIAL NO CHARGE Ordered. EDMS 02:16 PLATELET ESTIMATE Ordered. EDMS 02:33 Financial registration complete. pm4 02:48 Basic Metabolic Profile Reviewed. br1 02:48 CBC with Diff Reviewed. br1 02:48 D-Dimer Quant Reviewed. br1 02:48 Cardiac Injury Profile Reviewed. br1 02:48 Troponin Reviewed. br1 02:48 PLATELET ESTIMATE Reviewed. br1 02:50 CT Chest Angio R/O PE Ordered. EDMS 03:14 [facility] Payment Agreement was scanned into [employer] and attached to record. pm4 03:14 Nitrostat 0.4 mg Sublingual once ordered. br1 03:26 BED REQUEST+ADM ordered. EDMS 04:48 CARDIAC MARKER PANEL Ordered. EDMS 04:48 CARDIAC MARKER PANEL Ordered. EDMS 04:51 Admission / Observation Status ordered. EDMS 04:51 2 GRAM SODIUM DIET ordered. EDMS 05:46 PACKED CELLS Ordered. EDMS 05:46 TYPE & SCREEN Ordered. EDMS 05:47 ECHOCARD,DOPPLER/COLOR FLOW ordered. EDMS 13:38 T-Sheet-- Draft Copy was scanned into [employer] and attached to record. gb 16:59 HEMOGLOBIN & HEMATOCRIT Ordered. EDMS 19:31 CARDIAC MARKER PANEL Ordered. EDMS 19:31 CBC WITH DIFFERENTIAL Ordered. EDMS 19:31 BASIC METABOLIC PROFILE Ordered. EDMS 19:31 MAGNESIUM LEVEL Ordered. EDMS 03/24 11:31 ECG/EKG was scanned into [employer] and attached to record. gb Administered Medications: 03/23 02:10 Drug: Aspirin 324 mg [aspirin 81 mg chewable tablet (4 tabs)] Route: PO; kas2 03:17 Drug: Nitrostat 0.4 mg [Nitrostat 0.4 mg sublingual tablet (1 tabs)] Route: Sublingual; sls1 Signatures: Dispatcher [employer] EDMS Kelsey Becker RN RN kpj Giorgi Qureshi, RN RN cz Jacinta Faria, Reg Reg gb Bernard Burnham MD MD br1 Gemini ColbertRN RN aa3 Mary Gallegos,RN RN nn1 Deshawn Coombs RN RN [facility] Jovanny Lowry, Reg Reg pm4 Naida Deluca RN sls1 Simi Holguin RN kas2 The chart was reviewed and I authenticate all verbal orders and agree with the evaluation and treatment provided.Attachments: 03:14 [facility] Payment Agreement pm4 13:38 T-Sheet-- Draft Copy gb 03/24 11:31 ECG/EKG gb Chart Complete MTDD
--- NOTE | 2016-03-25 20:50 | EDDOCDS ---
Nurse's Notes [facility] Name: Tr Denson Age: 80 yrs Sex: Male : 1935 Arrival Date: 03/23/2016 Time: 01:32 Bed Admit Hold Private MD: Diagnosis: Chest pain, unspecified-Rule Out Acute Coronary Syndrome;Anemia, unspecified Presentation: 03/23 01:37 Presenting complaint: Patient states: chest pain started at about 2340. First nitro nn1 given at 2340, second nitro given at 0014. Patient reports nitro temporarily relieved pain. Patient reports sharp substernal chest pain. Patient has 2 known blockages, patient had TX on 02/24/16. Presenting complaint: Patient states: Nitro has nitro patch, patch put on at 1930. Pain woke patient from sleep. Aspirin was not taken prior to arrival. Adult Sepsis Screening:. Suicide/Homicide risk assessment- the patient denies having any suicidal and/or homicidal ideations and does not present with any other emotional, behavioral or mental health complaints. 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 Transition of care: patient was not received from another setting of care. 01:37 Acuity: DANITA Level 2 nn1 01:37 Method Of Arrival: Walkin/Carried/Asstd nn1 Triage Assessment: 01:47 General: Appears in no apparent distress, comfortable, Behavior is appropriate for age, nn1 cooperative. Pain: Location: xyphoid area and mid-sternal area Pain currently is 8 out of 10 on a pain scale. Pain does not radiate. Quality of pain is described as sharp, Pain began 3 hours ago. The patient is triaged at the bedside. See Assessment in Nurses Notes section of ED record. Neurological: Level of Consciousness is awake, alert, obeys commands, Oriented to person, place, time. Cardiovascular: Chest pain is described as severe, is located in substernal area radiates Does not radiate. episodes are continuous began 3 hours prior to arrival. Respiratory: Airway is patent Respiratory effort is even, unlabored, Respiratory pattern is regular, symmetrical. Derm: Skin is jaundiced. Musculoskeletal: No deficits noted. Historical: - Allergies: No known drug Allergies; - Home Meds: 1. aspirin 81 mg Oral chew 1 tab once daily 2. atorvastatin 40 mg oral tab 1 tab once daily 3. captopril 12.5 mg Oral tab 0.5 tab 2 times per day 4. Daily-Esteban oral tab daily 5. furosemide 20 mg Oral tab 1 tab once daily 6. hydroxyurea 500 mg Oral cap every day except tues everyday except tues 7. Jadenu 360 mg oral tab 1 tab once daily 8. metoprolol succinate 25 mg Tb24 1 tab once daily 9. Plavix 75 mg Oral tab 1 tab once daily 10. Procrit 40,000 unit/mL Inj soln 3 times per wk as needed 11. sertraline 50 mg oral tab 1 tab once daily 12. nitroglycerin 0.4 mg SL subl 1 tab every 5 minutes 13. Nitro-Bid 2 % transdermal oint 1 inch daily - PMHx: Anemia; aortic anyeursym; CVA; Essential Thronbocytemia; Hypercholesterolemia; Hypertension; Myelodysplasia; TX; - PSHx: open heart- aortic valve replacement - 2013; Cardiac Ablation; Tonsillectomy; - Social history: Smoking status: Patient states former smoker of tobacco. No barriers to communication noted, The patient speaks fluent [place], Speaks appropriately for age. - : The pt / caregiver states he / she is on anticoagulants: Plavix. Home medication list is obtained from family members. - Exposure Risk Screening:: None identified. Screenin:46 Screening information is obtained from the patient. Fall risk: No risks identified. nn1 Assistance ADL's: requires no assistance with activities of daily living. Abuse/DV Screen: The patient / caregiver reports he/she is: not in a situation that causes fear, pain or injury. Nutritional screening: meds with apple sauce due to difficulty swallowing . Advance Directives: Currently, there is a health care proxy, Tonya Natarajan, daughter . home support is adequate. Assessment: 01:51 General: Appears in no apparent distress, comfortable, well nourished, well groomed, kas2 Behavior is appropriate for age, cooperative. Pain: Location: chest and mid-sternal area and xyphoid area Pain currently is 8 out of 10 on a pain scale. Pain does not radiate. Quality of pain is described as pressure, Pain began 2 hours ago Is continuous. Neurological: Level of Consciousness is awake, alert, Oriented to person, place, time. Cardiovascular: Capillary refill < 3 seconds Heart tones S1 S2 present Rhythm is sinus rhythm No ectopy. Chest pain is described as Pain is 8 out of 10 on a pain scale. quality is pressure, is located in epigastric area radiates Does not radiate. episodes are continuous began 2 hours prior to arrival. Respiratory: Airway is patent Respiratory effort is even, unlabored, Respiratory pattern is regular, symmetrical, Breath sounds are clear bilaterally. Derm: Skin is intact, Skin is dry, Skin is jaundiced, Skin temperature is warm. 03:19 General: Appears uncomfortable, Pt c/o substernal chest pain 7/10 without radiatiion, sls1 provider aware, pt medicated with nitro per order, oxygen applied at 2.5 liters nasal canula for sat of 88% on room air. 03:26 General: Patient appears comfortable at this time. States chest pain 1/10. No kas2 radiation. BP 99/55. Provider aware of patients condition. No further orders at this time. Call kidd within reach. Will continue to monitor.. 04:44 General: Appears in no apparent distress, comfortable, well nourished, well groomed, kas2 Behavior is appropriate for age, cooperative. Pain: Denies pain. Neurological: Level of Consciousness is awake, alert, Oriented to person, place, time. Cardiovascular: Rhythm is sinus rhythm No ectopy. Respiratory: Airway is patent Respiratory effort is even, unlabored, Respiratory pattern is regular, symmetrical. Derm: Skin is intact, Skin is dry, Skin is jaundiced, Skin temperature is warm. 05:23 General: Hospitalist in room assessing patient at this time.. kas2 05:53 General: Appears in no apparent distress, comfortable, well nourished, well groomed, kas2 Behavior is appropriate for age, cooperative. Pain: Denies pain. Neurological: Level of Consciousness is awake, alert, Oriented to person, place, time. Cardiovascular: Rhythm is sinus rhythm No ectopy. Respiratory: Airway is patent Respiratory effort is even, unlabored, Respiratory pattern is regular, symmetrical. Derm: Skin is intact, Skin is dry, Skin is pale, Skin temperature is warm. 06:49 General: Patient resting in bed sleeping at this time with at bedside. No apparent kas2 distress. Appears comfortable. Airway patent and respiratory effort even and unlabored. Call kidd within reach. Will continue to monitor.. Vital Signs: 01:42 BP 108 / 52 (auto/); kas2 01:43 Pulse 78 MON; Pulse Ox 92% ; kas2 01:44 BP 108 / 52; Pulse 81; Resp 18; Pulse Ox 93% on R/A; Weight 63.96 kg; Height 5 ft. 11 nn1 in. (180.34 cm); Pain 810; 01:57 BP 102 / 50 (auto/); kas2 01:57 Pulse 76 MON; Pulse Ox 91% ; kas2 02:05 Temp 98.3(O); kas2 02:12 BP 102 / 52 (auto/); kas2 02:12 Pulse 76 MON; Pulse Ox 93% ; kas2 02:27 BP 100 / 50 (auto/); sls1 02:27 Pulse 76 MON; Pulse Ox 92% ; sls1 02:42 BP 99 / 50 (auto/); sls1 02:57 BP 100 / 50 (auto/); sls1 03:09 BP 116 / 58 (auto/); sls1 03:15 Pulse 84 MON; Pulse Ox 89% ; sls1 03:24 BP 99 / 55 (auto/); kas2 03:24 Pulse 78 MON; Pulse Ox 96% ; kas2 03:24 Resp 20; Temp 98.3(O); Pain 10; kas2 04:11 BP 97 / 51 (auto/); kas2 04:11 Pulse 76 MON; Pulse Ox 96% ; kas2 05:24 BP 106 / 57 (auto/); kas2 05:24 Pulse 82 MON; Pulse Ox 96% ; kas2 05:39 BP 108 / 58 (auto/); kas2 05:39 Pulse 76 MON; Pulse Ox 98% ; kas2 05:54 BP 105 / 53 (auto/); kas2 05:54 Pulse 78 MON; Pulse Ox 96% ; kas2 06:09 BP 103 / 51 (auto/); kas2 06:09 Pulse 72 MON; Pulse Ox 96% ; kas2 06:24 BP 105 / 56 (auto/); kas2 06:24 Pulse 76 MON; Pulse Ox 97% ; kas2 06:39 BP 104 / 55 (auto/); kas2 06:39 Pulse 78 MON; Pulse Ox 97% ; kas2 01:44 Body Mass Index 19.67 (63.96 kg, 180.34 cm) nn1 Vitals: 01:44 Log In Time: March 23, 2016 at 01:33. nn1 ED Course: 01:33 Patient visited by Susannah Mandujano, Reg. hs2 01:33 Patient moved to Waiting hs2 01:37 Simi Holguin RN is Primary Nurse. nn1 01:37 Patient moved to 10 nn1 01:40 Triage Initiated nn1 01:44 Bernard Burnham MD is Attending Physician. br1 01:51 Patient visited by Shazia Lomax. ajs 01:51 music critic on. Pulse ox on. NIBP on. kas2 01:51 EKG done. (by ED staff). Reviewed by Bernard Burnham MD. ajs 01:51 Inserted saline lock: 20 gauge in right antecubital area and blood collected. The kas2 patient tolerated the procedure well. No procedures done that require assistance. 01:53 Patient visited by Simi Holguin RN. kas2 01:53 Troponin Sent. kas2 01:53 Cardiac Injury Profile Sent. kas2 01:53 CBC with Diff Sent. kas2 01:53 Basic Metabolic Profile Sent. kas2 02:03 Patient visited by Bernard Burnham MD. br1 02:05 D-Dimer Quant Sent. kas2 02:38 Patient visited by Simi Holguin RN. kas2 03:00 portable chest Returned. EDMS 03:14 [facility] Payment Agreement was scanned into [employer] and attached to record. pm4 03:21 Patient visited by Nadia Deluca RN. sls1 03:21 The patient / caregiver is instructed regarding the plan of care and ED course. Patient sls1 has correct armband on for positive identification. Placed in gown. Bed in low position. Call light in reach. Side rails up X2. 03:21 O2 via nasal cannula 2.5LNC. sls1 03:28 Patient visited by Smii Holguin RN. kas2 04:06 Patient visited by Simi Holguin RN. kas2 04:24 CT Chest Angio R/O PE Returned. EDMS 04:38 Heidy Jose is Hospitalizing Provider. br1 04:47 Patient visited by Simi Holguin RN. kas2 04:52 Patient moved to Admit Hold daq 05:35 Patient visited by Simi Holguin RN. kas2 05:55 Patient visited by Simi Holguin RN. kas2 06:50 Patient moved to 13 sls1 06:50 Patient moved to Admit Hold [facility] 07:15 Patient visited by Simi Holguin RN. [facility] 13:38 T-Sheet-- Draft Copy was scanned into [employer] and attached to record. 17:21 Primary Nurse role handed off by Simi Holguin RN [facility] 03/24 11:31 ECG/EKG was scanned into [employer] and attached to record. Administered Medications: 03/23 02:10 Drug: Aspirin 324 mg [aspirin 81 mg chewable tablet (4 tabs)] Route: PO; [facility] 03:17 Drug: Nitrostat 0.4 mg [Nitrostat 0.4 mg sublingual tablet (1 tabs)] Route: Sublingual; [facility] Order Results: Lab Order: Basic Metabolic Profile; SPEC'M 03/23/16 01:49 Test: GLUCOSE, FASTING; Value: 103; Range: 83-110; Units: MG/DL; Status: F Test: BLOOD UREA NITROGEN; Value: 30; Range: 7-18; Abnormal: Above high normal; Units: MG/DL; Status: F Test: CREATININE FOR GFR; Value: 1.14; Range: 0.70-1.30; Units: MG/DL; Status: F Test: GLOMERULAR FILTRATION RATE; Value: > 60.0; Range: >35; Status: F Test: SODIUM LEVEL; Value: 142; Range: 136-145; Units: MEQ/L; Status: F Test: POTASSIUM SERUM; Value: 4.1; Range: 3.5-5.1; Units: MEQ/L; Status: F Test: CHLORIDE LEVEL; Value: 106; Range: 98-107; Units: MEQ/L; Status: F Test: CARBON DIOXIDE LEVEL; Value: 26; Range: 21-32; Units: MEQ/L; Status: F Test: ANION GAP; Value: 10; Range: 8-16; Units: MEQ/L; Status: F Test: CALCIUM LEVEL; Value: 9.1; Range: 8.8-10.2; Units: MG/DL; Status: F Test Note: ; Units are mL/min/1.73 m2 Chronic Kidney Disease Staging per NKF: Stage I & II GFR >=60 Normal to Mildly Decreased Stage III GFR 30-59 Moderately Decreased Stage IV GFR 15-29 Severely Decreased Stage V GFR <15 Very Little GFR Left ESRD GFR <15 on SAMPLE HAND Lab Order: CBC with Diff; SPEC'M 03/23/16 01:49 Test: WHITE BLOOD COUNT; Value: 49.9; Range: 4.0-10.0; Abnormal: Above upper panic limits; Units: K/mm3; Status: F Test: RED BLOOD COUNT; Value: 2.12; Range: 4.30-6.10; Abnormal: Below low normal; Units: M/mm3; Status: F Test: HEMOGLOBIN; Value: 7.7; Range: 14.0-18.0; Abnormal: Below low normal; Units: g/dl; Status: F Test: HEMATOCRIT; Value: 23.4; Range: 42.0-52.0; Abnormal: Below low normal; Units: %; Status: F Test: MEAN CORPUSCULAR VOLUME; Value: 110.6; Range: 80.0-96.0; Abnormal: Above high normal; Units: fl; Status: F Test: MEAN CORPUSCULAR HEMOGLOBIN; Value: 36.2; Range: 27.0-33.0; Abnormal: Above high normal; Units: pg; Status: F Test: MEAN CORPUSCULAR HGB CONC; Value: 32.7; Range: 32.0-36.5; Units: g/dl; Status: F Test: RED CELL DISTRIBUTION WIDTH; Value: 23.7; Range: 11.5-14.5; Abnormal: Above high normal; Units: %; Status: F Test: PLATELET COUNT, AUTOMATED; Value: 346; Range: 150-450; Units: k/mm3; Status: F Test: NEUTROPHILS; Value: 86; Range: 35-75; Abnormal: Above high normal; Units: %; Status: F Test: BANDS; Value: 3; Range: < 11; Units: %; Status: F Test: LYMPHOCYTES; Value: 2; Range: 16-52; Abnormal: Below low normal; Units: %; Status: F Test: MONOCYTES; Value: 1; Range: 0-8; Units: %; Status: F Test: METAMYELOCYTES; Value: 4; Range: 0-0; Abnormal: Above high normal; Units: %; Status: F Test: MYELOCYTES; Value: 3; Range: 0-0; Abnormal: Above high normal; Units: %; Status: F Test: PROMYELOCYTES; Value: 1; Range: 0-0; Abnormal: Above high normal; Units: %; Status: F Test: ANISOCYTOSIS; Value: 2+; Status: F Test: MACROCYTOSIS; Value: 2+; Status: F Lab Order: Cardiac Injury Profile; 03/23/16 01:49 Test: CPK CREATINE PHOSPHOKINASE; Value: 41; Range: 39-308; Units: U/L; Status: F Test: CK-MB VALUE MASS; Value: 1.1; Range: 0.0-3.6; Units: NG/ML; Status: F Test: MB/CK RELATIVE INDEX; Value: 2.68; Range: < OR =4; Status: F Test Note: ; DIAGNOSIS CRITERIA MMB ng/ml Relative Index (RI) NON-AMI < or = 5 N/A ZEPEDA ZONE > 5 < or = 4 AMI > 5 > 4 Lab Order: Troponin; 03/23/16 01:49 Test: TROPONIN I; Value: 0.02; Range: < 0.10; Units: NG/ML; Status: F Test Note: ; Troponin I Reference Interval for [facility] LOCI: 99th Percentile= 0.00-0.045 ng/ml Risk Stratification: <= 0.10 ng/ml Decreased Risk for Adverse Clinical Events. 0.10-1.50 ng/ml Increased Risk for Adverse Clinical Events. Evaluation of additional criterion and/or repeat testing in 2-6 hours is suggested to rule out myocardial damage. >= 1.50 ng/ml Indicative of Myocardial Injury. Lab Order: D-Dimer Quant; 03/23/16 01:49 Test: D-DIMER QUANT; Value: 790.5; Range: <500; Abnormal: Above high normal; Units: ng/ml; Status: F Lab Order: PLATELET ESTIMATE; 03/23/16 01:49 Test: PLATELET ESTIMATE; Value: NORMAL; Range: NORMAL; Status: F Lab Order: CARDIAC MARKER PANEL; 03/23/16 07:28 Test: CPK CREATINE PHOSPHOKINASE; Value: 101; Range: 39-308; Abnormal: Delta; Units: U/L; Status: F Test: CK-MB VALUE MASS; Value: 12.8; Range: 0.0-3.6; Abnormal: Above high normal; Units: NG/ML; Status: F Test: MB/CK RELATIVE INDEX; Value: 12.67; Range: < OR =4; Abnormal: Above high normal; Status: F Test: TROPONIN I; Value: 0.98; Range: < 0.10; Abnormal: High; Units: NG/ML; Status: F Test Note: ; DIAGNOSIS CRITERIA MMB ng/ml Relative Index (RI) NON-AMI < or = 5 N/A ZEPEDA ZONE > 5 < or = 4 AMI > 5 > 4 Lab Order: CARDIAC MARKER PANEL; [facility] 03/23/16 15:46 Test: CPK CREATINE PHOSPHOKINASE; Value: 188; Range: 39-308; Abnormal: Delta; Units: U/L; Status: F Test: CK-MB VALUE MASS; Value: 23.6; Range: 0.0-3.6; Abnormal: Above high normal; Units: NG/ML; Status: F Test: MB/CK RELATIVE INDEX; Value: 12.55; Range: < OR =4; Abnormal: Above high normal; Status: F Test: TROPONIN I; Value: 3.16; Range: < 0.10; Abnormal: Critical Delta High; Units: NG/ML; Status: F Test Note: ; DIAGNOSIS CRITERIA MMB ng/ml Relative Index (RI) NON-AMI < or = 5 N/A ZEPEDA ZONE > 5 < or = 4 AMI > 5 > 4 Lab Order: TYPE & SCREEN; [facility] 03/23/16 07:28 Test: BLOOD TYPE; Value: A POS; Status: F Test: AB SCREEN (INDIRECT STEVEN)GEL; Value: NEGATIVE; Status: F Test: IMMEDIATE SPIN CROSSMATCH; Value: [id number] A POSITIVE Compatible? Y; Status: F Test: IMMEDIATE SPIN CROSSMATCH; Value: [id number] A POSITIVE Compatible? Y; Status: F Lab Order: HEMOGLOBIN & HEMATOCRIT; [facility] 03/23/16 18:03 Test: HEMOGLOBIN; Value: 10.2; Range: 14.0-18.0; Units: g/dl; Status: F Test: HEMATOCRIT; Value: 29.6; Range: 42.0-52.0; Abnormal: Below low normal; Units: %; Status: F Radiology Order: portable chest Test: portable chest REASON FOR EXAMINATION: Chest Pain; Clinical: Chest pain.; ; Comparison: 02/24/2017.; ; Findings: Mediastinum and cardiac silhouette are stable with mild cardiomegaly; again suggested. Lung funes demonstrate chronic interstitial changes without; acute consolidation, effusion, or pneumothorax. Skeletal structures stable.; Prior sternotomy again noted.; ; Impression:; Chronic stable changes. No acute cardiopulmonary process.; ; ; Signed by; Carlos Trevino MD 03/23/2016 02:33 A; Radiology Order: CT Chest Angio R/O PE Test: CT Chest Angio R/O PE REASON FOR EXAMINATION: Chest Pain; ; CLINICAL HISTORY: Dyspnea, exclude PE.; TECHNIQUE: Multiple incremental axial, coronal and oblique images are obtained from the thoracic inle; t to the upper abdomen. Intravenous contrast material was administered as per pulmonary embolism prot; ocol.; COMMENTS:; Comparison is made to the prior exam performed on 02/25/2016.; There is excellent opacification of pulmonary arterial system without evidence for pulmonary embolism; . Aorta is of normal caliber without evidence for aneurysm. Enlarged pulmonary artery suggestive of; pulmonary hypertension. Suboptimal opacification of the aorta.; There is no evidence of pleural or parenchymal mass. There are minimal residual pleural effusions. Pa; ssive atelectatic airspace disease of the lower lobes. No change of bilateral ground glass densities.; There is no evidence of hilar or mediastinal lymphadenopathy. The heart remains enlarged and great v; essels are engorged.; Images of the upper abdomen demonstrate no evidence of adrenal mass.; The bony structures are free of lytic or blastic lesions. Multilevel degenerative changes are seen in; volving the visualized thoracolumbar spine.; Scattered calcifications are seen involving the aorta and major branches compatible with atherosclero; sis.; Mild splenomegaly.; IMPRESSION:; No evidence for pulmonary embolism.; Decreased pleural effusions with minimal residual rim.; Groundglass and densities are unchanged.; No change in cardiomegaly.; Thank you for your kind referral of this patient.; ; Outcome: 04:38 Decision to Hospitalize by Provider. br1 19:48 Patient left the ED. cz Signatures: Dispatcher [employer] Rema Cross RN RN Ophelia Vasquez RN RN daq Giorgi Qureshi, RN RN cz Bienvenido, Jacinta, Reg Reg gb Bernard Burnham MD MD br1 Shazia Lomax Shannon RN RN sls1 Mary Gallegos,RN RN nn1 Susannah Mandujano, Reg Reg hs2 Simi HolguinRN RN kas2 Jovanny Lowry, Reg Reg pm4 Chart Complete MTDD
--- NOTE | 2016-03-25 20:50 | EDDOCDS ---
Physician Documentation [facility] Name: Tr Denson Age: 80 yrs Sex: Male : 1935 Arrival Date: 03/23/2016 Time: 01:32 Bed Admit Hold Private MD: Disposition: 03/23/16 04:38 Hospitalization ordered by Heidy Jose for Inpatient Admission. Preliminary diagnosis are Chest pain, unspecified - Rule Out Acute Coronary Syndrome, Anemia, unspecified. - [facility] - Status is Inpatient Admission. cz - Condition is Stable. - Problem is new. - Symptoms are unchanged. Historical: - Allergies: No known drug Allergies; - Home Meds: 1. aspirin 81 mg Oral chew 1 tab once daily 2. atorvastatin 40 mg oral tab 1 tab once daily 3. captopril 12.5 mg Oral tab 0.5 tab 2 times per day 4. Daily-Esteban oral tab daily 5. furosemide 20 mg Oral tab 1 tab once daily 6. hydroxyurea 500 mg Oral cap every day except tues everyday except tues 7. Jadenu 360 mg oral tab 1 tab once daily 8. metoprolol succinate 25 mg Tb24 1 tab once daily 9. Plavix 75 mg Oral tab 1 tab once daily 10. Procrit 40,000 unit/mL Inj soln 3 times per wk as needed 11. sertraline 50 mg oral tab 1 tab once daily 12. nitroglycerin 0.4 mg SL subl 1 tab every 5 minutes 13. Nitro-Bid 2 % transdermal oint 1 inch daily - PMHx: Anemia; aortic anyeursym; CVA; Essential Thronbocytemia; Hypercholesterolemia; Hypertension; Myelodysplasia; [place]; - PSHx: open heart- aortic valve replacement - 2013; Cardiac Ablation; Tonsillectomy; - Social history: Smoking status: Patient states former smoker of tobacco. No barriers to communication noted, The patient speaks fluent Nigerien, Speaks appropriately for age. - : The pt / caregiver states he / she is on anticoagulants: Plavix. Home medication list is obtained from family members. - Exposure Risk Screening:: None identified. Vital Signs: 03/23 01:42 BP 108 / 52 (auto/); kas2 01:43 Pulse 78 MON; Pulse Ox 92% ; kas2 01:44 BP 108 / 52; Pulse 81; Resp 18; Pulse Ox 93% on R/A; Weight 63.96 kg / 141.01 lbs; nn1 Height 5 ft. 11 in. (180.34 cm); Pain 8; 01:57 BP 102 / 50 (auto/); kas2 01:57 Pulse 76 MON; Pulse Ox 91% ; kas2 02:05 Temp 98.3(O); kas2 02:12 BP 102 / 52 (auto/); kas2 02:12 Pulse 76 MON; Pulse Ox 93% ; kas2 02:27 BP 100 / 50 (auto/); sls1 02:27 Pulse 76 MON; Pulse Ox 92% ; sls1 02:42 BP 99 / 50 (auto/); sls1 02:57 BP 100 / 50 (auto/); sls1 03:09 BP 116 / 58 (auto/); sls1 03:15 Pulse 84 MON; Pulse Ox 89% ; sls1 03:24 BP 99 / 55 (auto/); kas2 03:24 Pulse 78 MON; Pulse Ox 96% ; kas2 03:24 Resp 20; Temp 98.3(O); Pain 03/08; kas2 04:11 BP 97 / 51 (auto/); kas2 04:11 Pulse 76 MON; Pulse Ox 96% ; kas2 05:24 BP 106 / 57 (auto/); kas2 05:24 Pulse 82 MON; Pulse Ox 96% ; kas2 05:39 BP 108 / 58 (auto/); kas2 05:39 Pulse 76 MON; Pulse Ox 98% ; kas2 05:54 BP 105 / 53 (auto/); kas2 05:54 Pulse 78 MON; Pulse Ox 96% ; kas2 06:09 BP 103 / 51 (auto/); kas2 06:09 Pulse 72 MON; Pulse Ox 96% ; kas2 06:24 BP 105 / 56 (auto/); kas2 06:24 Pulse 76 MON; Pulse Ox 97% ; kas2 06:39 BP 104 / 55 (auto/); kas2 06:39 Pulse 78 MON; Pulse Ox 97% ; kas2 01:44 Body Mass Index 19.67 (63.96 kg, 180.34 cm) nn1 MDM: 01:37 ECG WITH READING ER PHYS+CARDIAG ordered. EDMS 01:45 Turbine Engine Assembler/Pulse Ox/q 30 min VS ordered. br1 01:45 IV Saline Lock ordered. br1 01:45 Rhythm Strip to chart ordered. br1 01:45 Undress patient appropriately for examination ordered. br1 01:45 Basic Metabolic Profile Ordered. EDMS 01:45 CBC with Diff Ordered. EDMS 01:45 Cardiac Injury Profile Ordered. EDMS 01:46 Troponin Ordered. EDMS 01:46 portable chest Ordered. EDMS 01:57 Oral Temp ordered. br1 02:04 Aspirin 324 mg PO once ordered. br1 02:04 D-Dimer Quant Ordered. EDMS 02:16 DIFFERENTIAL NO CHARGE Ordered. EDMS 02:16 PLATELET ESTIMATE Ordered. EDMS 02:33 Financial registration complete. pm4 02:48 Basic Metabolic Profile Reviewed. br1 02:48 CBC with Diff Reviewed. br1 02:48 D-Dimer Quant Reviewed. br1 02:48 Cardiac Injury Profile Reviewed. br1 02:48 Troponin Reviewed. br1 02:48 PLATELET ESTIMATE Reviewed. br1 02:50 CT Chest Angio R/O PE Ordered. EDMS 03:14 [facility] [place] was scanned into [employer] and attached to record. pm4 03:14 Nitrostat 0.4 mg Sublingual once ordered. br1 03:26 BED REQUEST+ADM ordered. EDMS 04:48 CARDIAC MARKER PANEL Ordered. EDMS 04:48 CARDIAC MARKER PANEL Ordered. EDMS 04:51 Admission / Observation Status ordered. EDMS 04:51 2 GRAM SODIUM DIET ordered. EDMS 05:46 PACKED CELLS Ordered. EDMS 05:46 TYPE & SCREEN Ordered. EDMS 05:47 ECHOCARD,DOPPLER/COLOR FLOW ordered. EDMS 13:38 T-Sheet-- Draft Copy was scanned into [employer] and attached to record. gb 16:59 HEMOGLOBIN & HEMATOCRIT Ordered. EDMS 19:31 CARDIAC MARKER PANEL Ordered. EDMS 19:31 CBC WITH DIFFERENTIAL Ordered. EDMS 19:31 BASIC METABOLIC PROFILE Ordered. EDMS 19:31 MAGNESIUM LEVEL Ordered. EDMS 03/24 11:31 ECG/EKG was scanned into [employer] and attached to record. gb Administered Medications: 03/23 02:10 Drug: Aspirin 324 mg [aspirin 81 mg chewable tablet (4 tabs)] Route: PO; kas2 03:17 Drug: Nitrostat 0.4 mg [Nitrostat 0.4 mg sublingual tablet (1 tabs)] Route: Sublingual; sls1 Signatures: Dispatcher [employer] EDMS Kelsey Becker RN RN kpj Giorgi Qureshi, RN RN cz Jacinta Faria, Reg Reg gb Bernard Burnham MD MD br1 Gemini ColbertRN RN aa3 Mary Gallegos,RN RN nn1 Deshawn Coombs RN RN [facility] Jovanny Lowry, Reg Reg pm4 Nadia Deluca RN sls1 Simi Holguin RN kas2 The chart was reviewed and I authenticate all verbal orders and agree with the evaluation and treatment provided.Attachments: 03:14 [facility] Payment Agreement pm4 13:38 T-Sheet-- Draft Copy gb 03/24 11:31 ECG/EKG gb Chart Complete MTDD
[2016-03-25] MEDS: NITROGLYCERIN 0.4 MG/HR PATCH TD SCH (20:51)
[2016-03-25] MEDS ORDERED: JADENU 360 MG PO SCH (21:00)
[2016-03-25 23:59] VITALS: BP 108/53
[2016-03-26 04:00] VITALS: BP 110/56
[2016-03-26 05:28] LABS: DIFF SLIDE NUMBER 25; MEAN CORPUSCULAR HEMOGLOBIN 33.9 pg (27.0-33.0); MEAN CORPUSCULAR HGB CONC 33.2 g/dl (32.0-36.5); PLATELET COUNT, AUTOMATED 261 k/mm3 (150-450); RED CELL DISTRIBUTION WIDTH 23.5 % (11.5-14.5)
[2016-03-26 05:30] LABS: WHITE BLOOD COUNT 43.1 K/mm3 (4.0-10.0)
[2016-03-26 05:40] LABS: ANION GAP 11 MEQ/L (8-16); BLOOD UREA NITROGEN 27 MG/DL (7-18); CALCIUM LEVEL 8.2 MG/DL (8.8-10.2); CARBON DIOXIDE LEVEL 25 MEQ/L (21-32); CHLORIDE LEVEL 104 MEQ/L (98-107); CREATININE FOR GFR 0.83 MG/DL (0.70-1.30); GLOMERULAR FILTRATION RATE > 60.0 (>35); GLUCOSE, FASTING 85 MG/DL (83-110); MAGNESIUM LEVEL 1.9 MG/DL (1.8-2.4); POTASSIUM SERUM 3.5 MEQ/L (3.5-5.1); SODIUM LEVEL 140 MEQ/L (136-145)
[2016-03-26 06:05] LABS: BANDS 8 % (< 11); BASOPHILS 1 % (0-4); EOSINOPHILS 2 % (0-5)
[2016-03-26 06:07] LABS: ANISOCYTOSIS 4+
[2016-03-26 06:09] LABS: POLYCHROMASIA 1+
[2016-03-26 08:00] VITALS: BP 109/53
[2016-03-26] MEDS: CAPTOpril 6.25 MG PER 1/2 TABLET PO SCH (09:26)
[2016-03-26] MEDS: MULTIVITAMINS/MINERALS THERAP 1 TAB PO SCH (09:26)
[2016-03-26] MEDS: ENOXAPARIN 60 MG/0.6 ML SYR (J1650) SC SCH (09:26)
[2016-03-26] MEDS: CLOPIDOGREL 75 MG TAB PO SCH (09:27)
[2016-03-26] MEDS: SENOKOT S TAB PO SCH (09:27)
[2016-03-26] MEDS: FUROSEMIDE 20 MG TAB PO SCH (09:27)
[2016-03-26] MEDS: ASPIRIN 81 MG ENTERIC TAB PO SCH (09:27)
[2016-03-26] MEDS: SERTRALINE HCL 50 MG TAB PO SCH (09:27)
[2016-03-26] MEDS: HYDROXYUREA 500 MG CAP PO SCH (09:27)
[2016-03-26 09:28] VITALS: BP 109/53
[2016-03-26] MEDS: METOPROLOL TART 12.5 MG PER 1/2 TAB PO SCH (09:28)
[2016-03-26] MEDS: SODIUM CHLORIDE NASAL 0.65% SPRAY BTL (OCEAN) SCH (09:28)
== END 2016-03-26 11:25 | disposition home health service (06) | DRG 811 ==
LOC: M ED 01:32 → M ED INP 04:37 → M PCU 19:51 → OBSVTOIN 03-24 13:09
PROVIDERS: ADMIT Hospitalist; ATTEND Internal Medicine Nephrology
PROC: 30253N1 (ICD-10-PCS; principal; 2016-03-24)
DX: D46.9 Myelodysplastic syndrome, unspecified (principal); I21.4 Non-ST elevation (NSTEMI) myocardial infarction; I10 Essential (primary) hypertension; E78.5 Hyperlipidemia, unspecified; I25.10 Atherosclerotic heart disease of native coronary artery without angina pectoris; I25.2 Old myocardial infarction; I50.9 Heart failure, unspecified; I73.9 Peripheral vascular disease, unspecified; Z95.3 Presence of xenogenic heart valve; I69.398 Other sequelae of cerebral infarction; R07.2 Precordial pain; Z79.891 Long term (current) use of opiate analgesic; Z79.82 Long term (current) use of aspirin; Z79.899 Other long term (current) drug therapy

== ENCOUNTER 2016-04-04 17:50 | Inpatient (IN) | payer MEDICARE ==
[~2016-04-04] VITALS: Ht 180.3 cm; Wt 64.0 kg
[~2016-04-04 17:50] MED LIST changes: +FURO20TA2 PO; +METO12TA PO; +NITR0.4D6 TD; +NITR4TASL SL
[2016-04-04] MEDS ORDERED: IPRATROPIUM 0.5MG/ALBUTEROL 2.5MG INH SOL UD 3ML (DUONEB)(J7620) As Ordered ONE (18:16)
[2016-04-04] MEDS ORDERED: ALBUTEROL SULFATE 2.5 MG/0.5 ML INH NEB SOLN As Ordered ONE (18:17)
[2016-04-04] MEDS ORDERED: FUROSEMIDE 40 MG/4 ML VIAL (J1940) As Ordered ONE (18:33)
[2016-04-04 18:35] LABS: ABG BASE EXCESS -2.9 (-2.0-2.0); ABG DEVICE NASAL CANN; ABG HCO3 19.6 MEQ/L (22.0-26.0); ABG PARTIAL PRESSURE CO2 27.4 mmHg (35.0-45.0); ABG PARTIAL PRESSURE O2 61.9 mmHg (75.0-100.0); ABG STANDARD HCO3 21.9 MEQ/L (22.0-26.0); ABG TOTAL CO2 20.5 MEQ/L (23.0-31.0); ABG pH (ARTERIAL) 7.473 UNITS (7.350-7.450)
--- NOTE | 2016-04-04 18:45 | REP ---
CHEST, ONE VIEW: HISTORY: Chest pain. COMPARISON: 03/23/2016 Interstitial and alveolar edema are present. The cardiac silhouette is enlarged. The pulmonary vasculature is prominent. IMPRESSION: Findings consistent with congestive heart failure. Signed by Tr Devlin MD 04/04/2016 06:54 P
[2016-04-04 18:53] LABS: DIFF SLIDE NUMBER 307; MEAN CORPUSCULAR HEMOGLOBIN 33.3 pg (27.0-33.0); MEAN CORPUSCULAR HGB CONC 31.5 g/dl (32.0-36.5); MEAN CORPUSCULAR VOLUME 105.7 fl (80.0-96.0); PLATELET COUNT, AUTOMATED 614 k/mm3 (150-450)
[2016-04-04 18:58] LABS: INR 1.29
[2016-04-04 19:15] LABS: ALBUMIN 3.8 GM/DL (3.2-5.2); ALBUMIN/GLOBULIN RATIO 0.81 (1.00-1.93); ALKALINE PHOSPHATASE 141 U/L (45-117); ALT/SGPT 27 U/L (12-78); ANION GAP 10 MEQ/L (8-16); AST/SGOT 31 U/L (15-37); BILIRUBIN,DIRECT 0.1 MG/DL (0.0-0.2); BILIRUBIN,TOTAL 0.3 MG/DL (0.2-1.0); BLOOD UREA NITROGEN 28 MG/DL (7-18); CALCIUM LEVEL 8.9 MG/DL (8.8-10.2); CARBON DIOXIDE LEVEL 25 MEQ/L (21-32); CHLORIDE LEVEL 106 MEQ/L (98-107); CREATININE FOR GFR 1.11 MG/DL (0.70-1.30); GLOMERULAR FILTRATION RATE > 60.0 (>35); GLUCOSE, FASTING 118 MG/DL (83-110); POTASSIUM SERUM 4.6 MEQ/L (3.5-5.1); SODIUM LEVEL 141 MEQ/L (136-145); TOTAL PROTEIN 8.5 GM/DL (6.4-8.2)
[2016-04-04] MEDS ORDERED: NITROGLYCERIN 2% OINT 1 GM *U/D* PKT As Ordered ONE (19:15)
[2016-04-04 19:59] LABS: BANDS 33 % (< 11); EOSINOPHILS 1 % (0-5)
[2016-04-04 20:00] LABS: ANISOCYTOSIS 4+
[2016-04-04] MEDS ORDERED: ATOR1TAB21 PO (20:00)
[2016-04-04 20:01] LABS: DOHLE BODIES 1+; OVALOCYTES 1+; POIKILOCYTOSIS 1+; POLYCHROMASIA 1+
--- NOTE | 2016-04-04 20:16 | ECGEPIP ---
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
[2016-04-04] MEDS ORDERED: ONDANSETRON 4MG/2ML VIAL (J2405) IV PRN (21:00)
[2016-04-04] MEDS ORDERED: CAPTOpril 6.25 MG PER 1/2 TABLET PO SCH (21:00)
[2016-04-04] MEDS ORDERED: ACETAMINOPHEN TAB 650MG DOSE (2X325MG) PO PRN (21:00)
[2016-04-04] MEDS ORDERED: HEPARIN SOD (PORCINE) 5000 UNITS/ML VIAL SC SCH (22:00)
[2016-04-04] MEDS ORDERED: HEPARIN SOD (PORCINE) 5000 UNITS/ML VIAL As Ordered ONE (23:04)
[2016-04-04 23:33] LABS: THYROXINE (T4) 7.1 UG/DL (4.5-12.0)
--- NOTE | 2016-04-04 23:59 | IPNPDOC ---
Text Note Date of Service The patient was seen on 04/04/16. NOTE Case discussed with Dr Mckinney, given elevated cardiac enzyme, Patient not a cath or CABG candidate as per documentation. agree for anticoagulation for 72hours, hospice consultation VS,Tonya, I+O VS, Tonya, I+O Laboratory Tests 04/04/16 18:27 Red Blood Count 3.22 L, Mean Corpuscular Volume 105.7 H, Mean Corpuscular Hemoglobin 33.3 H, Mean Corpuscular Hemoglobin Concent 31.5 L, Red Cell Distribution Width 23.0 H MAMIE HARVEY MD Apr 04, 2016 23:59
--- NOTE | 2016-04-05 00:28 | HPE ---
DATE OF ADMISSION: 04/04/2016 PRIMARY CARE PROVIDER: Jovanny Cuadra ONCOLOGIST: Dr. Reid RESEARCH WORKER ENCYCLOPEDIA: Dr. Alfonso VASCULAR SURGEON: Dr. Meehan CHIEF COMPLAINT: Shortness of breath. HISTORY OF THE PRESENT ILLNESS: This is an 80-year-old patient with underlying medical history of myelodysplastic syndrome, anemia, cerebrovascular accident with left-sided residual deficit, history of SVT with ablation, history of porcine aortic valve replacement, hypertension, dyslipidemia, coronary artery disease with recent myocardial infarction (MD) in 01/2016. Unable to cath or perform coronary artery bypass graft (CABG) with major vessel blockage, history of congestive heart failure (CHF) with systolic dysfunction, peripheral artery disease that is also nonoperable as per vascular surgeon, given patient's poor underlying medical conditions. The patient presented with acute onset earlier this afternoon with significant shortness of breath, coughing, pink sputum since 5:00 p.m. with diaphoresis. Denies any chest pain but does feel freezing and weak. Baseline is ambulatory but currently having reduced ability to ambulate. Denies any sick contact. Denies any lower extremity swelling. Denies any nausea, vomiting, diarrhea, still able to make urine. In the emergency department (ED), the patient was placed on 100% nonrebreather and also given Lasix, found to be in flash pulmonary edema; subsequently, the patient was admitted. ALLERGIES: No known drug allergies. PAST MEDICAL HISTORY: Myelodysplastic syndrome. History of cerebrovascular accident with left-sided residual deficit. History of SVT, status post ablation. History of porcine aortic valve replacement. Hypertension. Dyslipidemia. Coronary artery disease with recent myocardial infarction (MD) 01/2016. Congestive heart failure (CHF) with systolic dysfunction. PAST SURGICAL HISTORY: Porcine aortic valve replacement. Cardiac ablation. Tonsillectomy. Retinal surgery. SOCIAL HISTORY: The patient quit smoking in , one pack per day for 80 years. Denies alcohol drinking or illicit drug use. FAMILY HISTORY: Noncontributory. REVIEW OF SYSTEMS: Negative except for those mentioned in the history of the present illness. HOME MEDICATIONS: - aspirin 81 mg by mouth nightly - Lipitor 20 mg by mouth every 2 days - Captopril 6.25 mg by mouth twice a day - Plavix 75 mg by mouth daily - deferasirox/Jadenu 360 mg by mouth nightly - Procrit injection - Lasix 20 mg by mouth daily - hydroxyurea 500 mg by mouth six times a week - metoprolol 25 mg by mouth daily - multivitamin one tablet by mouth daily - nitroglycerin sublingual 0.4 mg as needed - Zoloft 50 mg by mouth daily PHYSICAL EXAMINATION: VITAL SIGNS: Blood pressure 139/67 , pulse 105, respirations 22, temperature 97.7, pulse oximetry 88% on room air. GENERAL: Patient frail, weak, in mild dyspnea. HEENT: Normocephalic, atraumatic. PULMONARY: Bilateral crackles. CARDIAC: Diminished heart sounds. Mild tachycardia but regular. ABDOMEN: Soft, nontender. Positive bowel sounds. EXTREMITIES: Toes are pale and cold. Dorsalis pedis (DP), posterior tibial (PT) pulses are 1+ to thready bilateral. No edema bilateral lower extremities. EKG: Left axis, sinus rhythm at 99, ST segment depression V3-V4. LABORATORY: WBC 63, hemoglobin and hematocrit 10.7/34.1, platelets 614. Chemistry: Sodium 141, potassium 4.6, chloride 106, bicarbonate 25, BUN 28, creatinine 1.11. Cardiac enzymes negative times one. B-natriuretic peptide 817. ASSESSMENT AND PLAN: This is an 80-year-old male patient with underlying medical history of myelodysplastic syndrome, history of cerebrovascular accident with left-sided residual deficit, SVT with ablation, history of porcine aortic valve replacement, hypertension, dyslipidemia, coronary artery disease with recent myocardial infarction, congestive heart failure with systolic dysfunction, peripheral artery disease, admitted for acute congestive heart failure exacerbation with flash pulmonary edema. PROBLEMS: 1. Acute hypoxic respiratory failure due to acute congestive heart failure dysfunction with systolic dysfunction, ejection fraction (EF) of 45% on recent echo and flash pulmonary edema. Oxygen supplementation. Diuresis with Lasix. X-rays appreciated. Arterial blood gas (ABG) is appreciated. Strict intake and output, daily weight. Followup cardiac enzymes. Followup cultures to rule out infectious etiology. Repeat echocardiogram to reassess ejection fractions given the recent change. Continue aspirin and statin, angiotensin-converting enzyme (GREGORY) inhibitors and beta blockers. Patient is DO NOT RESUSCITATE (DNR), DO NOT INTUBATE (DNI). Poor overall prognosis. 2. Myelodysplastic syndrome. Case discussed with Dr. Reid. As per Dr. Reid, the patient has refused bone marrow biopsy and chemotherapy. Will offer supportive care. The patient is a good candidate for hospice. Hospice consult placed. 3. History of cerebrovascular accident with left-sided residual deficit. Physical therapy as the patient tolerates. Continue aspirin, Plavix, statin. Monitor blood pressure. 4. Coronary artery disease with lesion that is unable to cath and the patient is not a candidate for CABG given multiple comorbidities. Continue aspirin, statin, GREGORY inhibitor, beta raisa, Lasix for diuresis. Telemetry monitoring. Followup cardiac enzymes. 5. History of aortic valve replacement. Will get echocardiogram and continue to follow. 6. Hypertension. Continue medication as ordered. 7. Dyslipidemia. Continue statin. 8. Peripheral artery disease. Continue aspirin, statin, Lipitor, supportive care. The patient is not a candidate for surgery determined by patient's vascular surgeon. 9. Deep vein thrombosis (DVT) prophylaxis. Heparin subcu. DISPOSITION PLANNING: Pending clinical improvement, hospice consultation ordered. SUMEET
[2016-04-05] MEDS ORDERED: ACETAMINOPHEN 325 MG TAB As Ordered ONE (00:39)
[2016-04-05] MEDS ORDERED: ENOXAPARIN 60 MG/0.6 ML SYR (J1650) SC SCH ×3 (01:00→13:00)
[2016-04-05] MEDS ORDERED: ENOXAPARIN 60 MG/0.6 ML SYR (J1650) As Ordered ONE (01:32)
[2016-04-05] MEDS ORDERED: FUROSEMIDE 40 MG/4 ML VIAL (J1940) IV SCH (02:00)
[2016-04-05] MEDS ORDERED: FUROSEMIDE 40 MG/4 ML VIAL (J1940) As Ordered ONE (02:46)
[2016-04-05] MEDS ORDERED: cefTRIAXone SOD 2 GM in D5W MINI-BAG PLUS 50 ML IV SCH (05:00)
[2016-04-05] MEDS ORDERED: SODIUM CHLORIDE 0.9% 1000 ML IV SCH (05:30)
[2016-04-05] MEDS ORDERED: AZITHROMYCIN INJ 500 MG, VIAL MATE ADAPTER 1 EACH in D5W 250 ML IV SCH (06:00)
[2016-04-05] MEDS ORDERED: cefTRIAXone SOD 1 GM VIAL (J0696) As Ordered ONE (06:06)
[2016-04-05 06:08] LABS: MEAN CORPUSCULAR HGB CONC 31.8 g/dl (32.0-36.5); MEAN CORPUSCULAR VOLUME 103.8 fl (80.0-96.0); RED CELL DISTRIBUTION WIDTH 24.9 % (11.5-14.5)
[2016-04-05 06:10] LABS: WHITE BLOOD COUNT 67.9 K/mm3 (4.0-10.0)
--- NOTE | 2016-04-05 06:21 | IPNPDOC ---
Text Note Date of Service The patient was seen on 04/05/16. NOTE Called by RN patient BP 79/40, hr 100, mentation intact. put out 2L urine and febrile 101, cultures sent, started rocephin and azithromycin. IVF 250ml bolus given. D/w patient and family, patient does not want pressor or central line, DNR/DNI agreeable for hospice consult. wanted to continue limited medical intervention with diuretic as tolerated, and O2 supplement. Holding parameter placed on BM meds and diuretics. VS,Fishbone, I+O VS, Fishbone, I+O Laboratory Tests 04/04/16 18:27 Red Blood Count 3.22 L, Mean Corpuscular Volume 105.7 H, Mean Corpuscular Hemoglobin 33.3 H, Mean Corpuscular Hemoglobin Concent 31.5 L, Red Cell Distribution Width 23.0 H 04/05/16 05:49 Red Blood Count 2.59 L, Mean Corpuscular Volume 103.8 H, Mean Corpuscular Hemoglobin 33.0, Mean Corpuscular Hemoglobin Concent 31.8 L, Red Cell Distribution Width 24.9 H MAMIE HARVEY MD Apr 05, 2016 06:21
[2016-04-05 06:32] LABS: CALCIUM LEVEL 8.6 MG/DL (8.8-10.2); CREATININE FOR GFR 1.3 MG/DL (0.70-1.30); GLOMERULAR FILTRATION RATE 56.3 (>35); MAGNESIUM LEVEL 1.2 MG/DL (1.8-2.4); POTASSIUM SERUM 3.8 MEQ/L (3.5-5.1)
[2016-04-05] MEDS ORDERED: AZITHROMYCIN INJ 500MG VIAL (J0456) As Ordered ONE (06:49)
[2016-04-05] MEDS: SERTRALINE HCL 50 MG TAB PO SCH (09:00)
[2016-04-05] MEDS ORDERED: MORPHINE 2 MG/ML 1ML SYRINGE IV PRN (09:00)
[2016-04-05] MEDS ORDERED: METOPROLOL TART 25 MG TABLET PO SCH (09:00)
[2016-04-05] MEDS ORDERED: LORazepam 2 MG/ML VIAL (J2060) IV PRN (09:00)
[2016-04-05] MEDS ORDERED: MORPHINE 2 MG/ML 1ML SYRINGE As Ordered ONE (09:09)
[2016-04-05] MEDS: MORPHINE 2 MG/ML 1ML SYRINGE IV PRN ×3 (09:14→20:33)
[2016-04-05] MEDS: MULTIVITAMINS/MINERALS THERAP 1 TAB PO SCH (09:49)
[2016-04-05] MEDS: PANTOPRAZOLE 40MG TAB (PROTONIX) PO SCH (09:49)
[2016-04-05] MEDS: SENOKOT S TAB PO SCH ×3 (09:49→20:39)
[2016-04-05] MEDS: CLOPIDOGREL 75 MG TAB PO SCH (09:49)
[2016-04-05] MEDS: FUROSEMIDE 40 MG/4 ML VIAL (J1940) IV SCH ×2 (09:50→18:00)
--- NOTE | 2016-04-05 10:15 | EDDOCDS ---
Nurse's Notes [facility] Name: Mckay Denson Age: 80 yrs Sex: Male : 1935 Arrival Date: 04/04/2016 Time: 17:50 Bed Admit Hold Private MD: Skip Michaels Diagnosis: Unspecified combined systolic (congestive) and diastolic (congestive) heart failure Presentation: 04/04 17:52 Presenting complaint: Patient states: states became SOB around 1700, states had slight ml6 chest pain 20 minutes before that. The last date and time the patient was known to be well was was at 17:00 on April 04, 2016. No acute neurological deficit is noted. Pre-hospital glucose is not applicable to this patient. Adult Sepsis Screening: The patient does not have new or worsening altered mentation. Patient's respiratory rate is less than 22. Systolic blood pressure is greater than 100. Patient has a qSOFA score of 0- Negative Sepsis Screen. Suicide/Homicide risk assessment- the patient denies having any suicidal and/or homicidal ideations and does not present with any other emotional, behavioral or mental health complaints. Status: Patient is not a service person or dependent. Transition of care: patient was not received from another setting of care. 17:52 Acuity: DANITA Level 2 ml6 17:52 Method Of Arrival: Walkin/Carried/Asstd ml6 Triage Assessment: 17:52 The onset of the patients symptoms was less than three hours ago. General: Appears ml6 distressed, Behavior is appropriate for age, cooperative. Pain: Denies pain. Neurological: Level of Consciousness is awake, alert, Oriented to person, place, time, Sole Assessor are equal bilaterally Moves all extremities. Full function Gait is steady, Speech is normal, Facial symmetry appears normal, Pupils are PERRLA, Reports no additional symptoms. Cardiovascular: No deficits noted. Capillary refill < 3 seconds is brisk in bilateral fingers toes Heart tones S1 S2 present Edema is absent. Pulses are all present. Respiratory: Airway is patent Respiratory effort is even, labored, Respiratory pattern is regular, hyperventilation Breath sounds with crackles expiratory bilaterally. the patient has severe shortness of breath. Historical: - Allergies: no known allergies; - Home Meds: 1. aspirin 81 mg Oral chew 1 tab once daily (Last dose: 04/04/2016 07:00) 2. atorvastatin 40 mg oral tab 1 tab once daily (Last dose: 04/04/2016 07:00) 3. captopril 12.5 mg Oral tab 0.5 tab 2 times per day (Last dose: 04/04/2016 07:00) 4. Daily-Esteban oral tab daily (Last dose: 04/04/2016 07:00) 5. furosemide 20 mg Oral tab 1 tab once daily (Last dose: 04/04/2016 07:00) 6. hydroxyurea 500 mg Oral cap every day except tues everyday except tues (Last dose: 04/04/2016 07:00) 7. Jadenu 360 mg oral tab 1 tab once daily (Last dose: 04/04/2016 07:00) 8. nitroglycerin 0.4 mg SL subl 1 tab every 5 minutes (Last dose: 04/04/2016 18:13) 9. metoprolol succinate 25 mg Tb24 1 tab once daily (Last dose: 04/04/2016 07:00) 10. Nitro-Bid 2 % transdermal oint 1 inch daily (Last dose: 04/04/2016 18:13) 11. Plavix 75 mg Oral tab 1 tab once daily (Last dose: 04/04/2016 07:00) 12. Procrit 40,000 unit/mL Inj soln 3 times per wk as needed (Last dose: Unknown) 13. sertraline 50 mg oral tab 1 tab once daily (Last dose: 04/04/2016 07:00) - PMHx: Anemia; aortic anyeursym; CVA; Essential Thronbocytemia; Hypercholesterolemia; Hypertension; KS; Myelodysplasia; CHF; - PSHx: open heart- aortic valve replacement - 2013; Cardiac Ablation; Tonsillectomy; - Social history: Smoking status: Patient states was never smoker of tobacco. No barriers to communication noted, Speaks appropriately for age. - Family history: No immediate family members are acutely ill. - : The pt / caregiver states he / she is not on anticoagulants. Home medication list is obtained from the patient. - Exposure Risk Screening:: None identified. Screenin:49 Screening information is obtained from the patient. Fall risk: At risk due to age, gait hs1 disturbance. Assistance ADL's: requires no assistance with activities of daily living. Abuse/DV Screen: The patient / caregiver reports he/she is: not in a situation that causes fear, pain or injury. Nutritional screening: No deficits noted. Advance Directives: Advance directive information has been placed on a prior [facility] medical record. home support is adequate. Assessment: 18:20 General: Appears in no apparent distress, Behavior is cooperative. Pain: Denies pain. hs1 Neurological: Level of Consciousness is awake, alert, obeys commands. Cardiovascular: Rhythm is sinus tachycardia No ectopy. Respiratory: Airway is patent Respiratory effort is labored, Respiratory pattern is regular, symmetrical, Breath sounds with wheezes bilaterally. Derm: Skin is pink, warm & dry. normal. 19:29 General: Appears in no apparent distress, Behavior is cooperative, Assumed care of pt af2 at this time. Family present at bedside.. Neurological: Level of Consciousness is awake, alert, obeys commands. Cardiovascular: Rhythm is sinus tachycardia No ectopy. Respiratory: Airway is patent Respiratory effort is labored, Respiratory pattern is regular, symmetrical, Breath sounds with crackles bilaterally. in left lower lobe, right lower lobe, left posterior lower lobe and right posterior lower lobe. Derm: Skin is pale. 20:08 General: hospitalist at bedside speaking with pt.. af2 21:00 General: Appears in no apparent distress, Behavior is cooperative. Neurological: Level af2 of Consciousness is awake, alert. Respiratory: Airway is patent Respiratory effort is labored. Derm: Skin is normal. 22:12 General: Appears in no apparent distress, Behavior is cooperative, assisted pt to use af2 urinal at this time. family updated regarding plan of care at this time.. Neurological: Level of Consciousness is awake, alert, obeys commands. Cardiovascular: Rhythm is sinus rhythm No ectopy. Respiratory: Airway is patent Respiratory effort is labored, Breath sounds with crackles bilaterally. Derm: Skin is normal. 23:15 General: Appears in no apparent distress, Behavior is cooperative. Neurological: Level af2 of Consciousness is awake, alert. Cardiovascular: Rhythm is sinus rhythm. Respiratory: Airway is patent Respiratory effort is labored. Derm: Skin is normal. 23:51 General: Dr. Chapman notified regarding pt family request to admin sleep, anxiety med. . af2 04/05 00:06 General: pt moved to new room and placed on hospital bed, assisted to position of af2 comfort. family remains at bedside.. 00:22 General: Dr. He called at this time regarding Lovenox dosing and pt receiving Heparin af2 tonight. Per Dr. Chapman, he will amend Lovenox dosing and pt okay to have both tonight.. 00:53 General: pt medicated for pain to left shoulder at this time, family updated regarding af2 plan of care. . Cardiovascular: Rhythm is sinus rhythm No ectopy. Respiratory: Airway is patent Respiratory effort is labored, Breath sounds with crackles Breath sounds with wheezes. Derm: Skin is normal. 01:05 General: pt temp of 101.5F, pt previously medicated for pain with Tylenol. Blankets af2 removed at this time. Will continue to monitor pt. For medication documentation, please see paper MAR.. 02:00 General: Appears in no apparent distress, Behavior is cooperative. Neurological: Level af2 of Consciousness is awake, alert, obeys commands. Cardiovascular: Rhythm is sinus rhythm. Respiratory: Airway is patent Respiratory effort is labored. Derm: Skin is normal. 02:59 General: Appears in no apparent distress, Behavior is cooperative, family continues at af2 bedside with pt. offers no complaints.. Neurological: Level of Consciousness is awake, alert. Cardiovascular: Rhythm is sinus rhythm No ectopy. Respiratory: Airway is patent Respiratory effort is labored. Derm: Skin is normal. 04:00 General: Appears in no apparent distress, Behavior is cooperative, pt resting quietly af2 with eyes closed, family continues at bedside with pt.. Cardiovascular: Rhythm is sinus rhythm No ectopy. Respiratory: Airway is patent Respiratory effort is labored. Derm: Skin is normal. 04:30 General: pt bp decreased at this time, NTG paste removed. will continue to monitor. . af2 05:00 General: pt bp 80/42 manual, Dr. Chapman notified. No orders received, Dr. Chapman to come and af2 speak with pt and family.. 05:13 General: Appears in no apparent distress, Behavior is cooperative. Neurological: Level af2 of Consciousness is awake, alert. Respiratory: Airway is patent Respiratory effort is labored. Derm: Skin is normal. 05:36 General: Dr. Chapman at bedside speaking with pt and family. Pt declines to have central af2 line placed, states that he does not want any invasive procedures.. 05:48 General: pt moved to C2 at this time, will continue to monitor. family at bedside.. af2 06:15 General: Appears in no apparent distress, Behavior is cooperative, pt resting quietly af2 with eyes closed, family continues at bedside. . Neurological: Level of Consciousness is awake, alert, obeys commands. Cardiovascular: Rhythm is sinus rhythm No ectopy. Respiratory: Airway is patent Respiratory effort is labored. Derm: Skin is normal. 06:48 General: hospitalist notified regarding critical lab values of WBC 67.9, trop 1.6, and af2 lactic 3.6. no orders received.. Vital Signs: 04/04 17:51 BP 139 / 67; Pulse 105; Resp 22; Temp 97.7(O); Pulse Ox 88% on R/A; Weight 63.96 kg dem1 (R); Height 5 ft. 11 in. (180.34 cm) (R); Pain 9/10; 19:00 BP 142 / 65 (auto/); af2 19:00 Pulse 103 MON; Resp 22 S; Pulse Ox 97% on 15% Non-rebreather mask; af2 19:15 BP 146 / 66 (auto/); af2 19:15 Pulse 106 MON; Resp 22 S; Pulse Ox 97% on 15% Non-rebreather mask; af2 20:00 BP 130 / 58 (auto/); af2 20:00 Pulse 108 MON; Resp 22 S; Pulse Ox 98% on 15% Non-rebreather mask; af2 20:15 BP 132 / 60 (auto/); af2 20:15 Pulse 106 MON; Resp 22 S; Pulse Ox 98% on 15% Non-rebreather mask; af2 20:30 BP 136 / 66 (auto/); af2 20:30 Pulse 102 MON; Resp 18 S; Pulse Ox 99% on 15% Non-rebreather mask; af2 20:45 BP 121 / 58 (auto/); af2 20:45 Pulse 101 MON; Resp 22 S; Pulse Ox 98% on 15% Non-rebreather mask; af2 21:00 BP 127 / 60 (auto/); af2 21:00 Pulse 100 MON; Resp 22 S; Pulse Ox 98% on 15% Non-rebreather mask; af2 21:30 BP 121 / 58 (auto/); af2 21:30 Pulse 94 MON; Resp 22 S; Pulse Ox 98% on 15% Non-rebreather mask; af2 21:45 BP 125 / 88 (auto/); af2 21:45 Pulse 90 MON; Resp 22 S; Pulse Ox 98% on 15% Non-rebreather mask; af2 22:00 BP 116 / 57 (auto/); af2 22:00 Pulse 88 MON; Resp 22 S; Pulse Ox 98% on 15% Non-rebreather mask; af2 22:15 BP 118 / 58 (auto/); af2 22:15 Pulse 89 MON; Resp 22 S; Temp 97.0(TE); Pulse Ox 98% on 15% Non-rebreather mask; af2 22:30 BP 123 / 60 (auto/); af2 22:30 Pulse 92 MON; Resp 22 S; Pulse Ox 98% on 15% Non-rebreather mask; af2 22:45 BP 121 / 57 (auto/); af2 22:45 Pulse 91 MON; Resp 22 S; Pulse Ox 98% on 15% Non-rebreather mask; af2 23:00 BP 123 / 57 (auto/); af2 23:00 Pulse 96 MON; Resp 22 S; Pulse Ox 99% on 15% Non-rebreather mask; af2 23:15 BP 131 / 62 (auto/); af2 23:15 Pulse 96 MON; Resp 22 S; Pulse Ox 98% on 15% Non-rebreather mask; af2 23:30 BP 120 / 60 (auto/); af2 23:30 Pulse 98 MON; Resp 22 S; Pulse Ox 98% on 15% Non-rebreather mask; af2 23:45 BP 120 / 55 (auto/); af2 23:45 Pulse 97 MON; Resp 22 S; Pulse Ox 97% on 15% Non-rebreather mask; af2 23:51 Pulse 97 MON; Pulse Ox 97% ; af2 07 00:02 BP 129 / 62 (auto/); af2 00:02 Pulse 106 MON; Pulse Ox 91% ; af2 00:32 BP 122 / 56 (auto/); af2 00:32 Pulse 96 MON; Pulse Ox 93% ; af2 01:01 Temp 101.5(TE); mdr 01:02 BP 115 / 55 (auto/); af2 01:02 Pulse 94 MON; Pulse Ox 92% ; af2 01:32 BP 108 / 52 (auto/); af2 01:32 Pulse 92 MON; Resp 22 S; Pulse Ox 95% on 15% Non-rebreather mask; af2 02:02 BP 105 / 51 (auto/); af2 02:02 Pulse 98 MON; Pulse Ox 97% ; af2 02:32 BP 118 / 55 (auto/); af2 02:32 Pulse 100 MON; Pulse Ox 96% ; af2 02:59 Temp 98.7(TE); af2 03:02 BP 97 / 55 (auto/); af2 03:02 Pulse 98 MON; Resp 22 S; Pulse Ox 96% on 15% Non-rebreather mask; af2 03:32 BP 91 / 53 (auto/); af2 03:32 Pulse 92 MON; Pulse Ox 95% ; af2 04:02 BP 87 / 45 (auto/); af2 04:02 Pulse 92 MON; Pulse Ox 97% ; af2 04:32 BP 85 / 42 (auto/); af2 04:32 Pulse 90 MON; Resp 22 S; Pulse Ox 96% on 15% Non-rebreather mask; af2 05:02 BP 80 / 44 (auto/); af2 05:02 Pulse 94 MON; Resp 22 S; Pulse Ox 94% on 15% Non-rebreather mask; af2 05:04 BP 75 / 37 (auto/); af2 05:04 Pulse 92 MON; Resp 22 S; Pulse Ox 95% on 15% Non-rebreather mask; af2 05:06 BP 75 / 41 (auto/); af2 05:06 Pulse 92 MON; Resp 22 S; Pulse Ox 95% on 15% Non-rebreather mask; af2 05:10 BP 80 / 42 (man/); nicole 05:13 BP 75 / 39 (auto/); af2 05:13 Pulse 90 MON; Resp 22 S; Pulse Ox 93% on 15% Non-rebreather mask; af2 05:19 BP 75 / 39 (auto/); af2 05:19 Pulse 90 MON; Resp 22 S; Pulse Ox 96% on 15% Non-rebreather mask; af2 05:32 BP 79 / 42 (auto/); af2 05:32 Pulse 94 MON; Resp 22; Pulse Ox 94% on 15% Non-rebreather mask; af2 05:44 BP 81 / 45 (auto/); af2 06:00 BP 81 / 44 (auto/); af2 06:01 Pulse 91 MON; Resp 22 S; Pulse Ox 95% on 15% Non-rebreather mask; af2 06:15 BP 81 / 46 (auto/); af2 06:16 Pulse 93 MON; Resp 22 S; Pulse Ox 94% on 15% Non-rebreather mask; af2 06:30 BP 81 / 42 (auto/); af2 06:31 Pulse 95 MON; Resp 22 S; Pulse Ox 96% on 15% Non-rebreather mask; af2 02/ 17:51 Body Mass Index 19.67 (63.96 kg, 180.34 cm) [facility] Vitals: 04/04 17:51 Log In Time: April 04, 2016 at 17:48. [facility] 17:52 RN notified that patient meets Red Flag criteria. [facility] ED Course: 17:51 Patient visited by Charissa Jade. dem1 17:51 Skip Michaels MD is Private Physician. dem1 17:51 Patient moved to Waiting dem1 17:54 Patient moved to Pre RCE dem1 18:01 Kaylene Rodgers, CARLOS is Primary Nurse. hs1 18:01 Patient moved to 8 hs1 18:05 Inserted saline lock: 20 gauge in left forearm and blood collected. The patient hs1 tolerated the procedure well. 18:09 Patient moved to [facility] 18:11 Triage Initiated ml6 18:12 Fernando Solo MD is Attending Physician. ml 18:12 Patient visited by Fernando Solo MD. ml 18:30 -Arterial Blood Gas Sent. rs5 18:30 PTT Sent. hs1 18:30 PT/INR Sent. hs1 18:30 Type & Screen Sent. hs1 18:30 LIVER PROFILE Sent. hs1 18:30 BMP Sent. hs1 18:30 CBC with Diff Sent. hs1 18:30 CIP Sent. hs1 18:31 Troponin Sent. hs1 18:37 Patient visited by Chadd Rodriguez. jml1 18:37 EKG done. (by ED staff). Reviewed by Fernando Solo MD. jml1 18:50 The patient / caregiver is instructed regarding the plan of care and ED course. Cardiac hs1 monitor on. Pulse ox on. NIBP on. 18:53 No procedures done that require assistance. hs1 18:55 Oneyda Healy RN is Primary Nurse. af2 19:13 DIFFERENTIAL NO CHARGE Sent. af2 19:17 Chest, 1 View Returned. EDMS 19:28 Patient visited by Oneyda Healy RN. af2 19:28 Patient visited by Oneyda Healy RN. af2 19:30 Patient visited by Oneyda Healy RN. af2 19:37 Attending Physician role handed off by Fernando Solo MD cs11 19:37 Aneudy Mix DO is Attending Physician. cs11 19:50 Anay Chapman is Hospitalizing Provider. cs11 20:08 Patient visited by Oneyda Healy RN. af2 20:29 Patient moved to Admit Hold sls1 20:45 Patient visited by Homero Ware PCA. mdr 20:45 Warm blanket given. mdr 20:54 EKG-ADULT Returned. EDMS 20:57 Primary Nurse role handed off by Kaylene Rodgers RN nicole 21:04 [facility] Payment Agreement was scanned into [employer] and attached to record. gjb 22:15 Patient visited by Oneyda Healy RN. af2 23:51 Patient moved to 9 sls1 23:52 Patient visited by Oneyda Healy RN. af2 23:52 Patient moved to Admit Hold sls1 02 00:06 Patient visited by Oneyda Healy RN. af2 00:59 Patient visited by Oneyda Healy RN. af2 01:01 Patient visited by Homero Ware PCA. mdr 01:14 Patient visited by Oneyda Healy RN. af2 01:22 Patient visited by Oneyda Healy RN. af2 03:00 Patient visited by Oneyda Healy RN. af2 04:48 Patient visited by Oneyda Healy RN. af2 05:10 Patient visited by Nhi Medel PCA. nicole 05:16 Patient visited by Oneyda Healy RN. af2 05:30 Patient visited by Oneyda Healy RN. af2 05:37 Patient visited by Oneyda Healy RN. af2 05:44 Patient moved to 2 sls1 05:44 Patient moved to Admit Hold sls1 05:51 Patient visited by Oneyda Healy RN. af2 06:37 Patient visited by Oneyda Healy RN. af2 06:49 Patient visited by Oneyda Healy RN. af2 10:03 T-Sheet-- Draft Copy was scanned into [employer] and attached to record. gb Administered Medications: 04/04 18:35 Drug: Albuterol 5 mg [albuterol sulfate 2.5 mg/0.5 mL solution for nebulization (1 mL)] rs5 Route: Nebulizer; 18:35 Drug: Albuterol-Ipratropium 3 ml [ipratropium-albuterol 0.5 mg-3 mg(2.5 mg base)/3 mL rs5 nebulization soln (3 mL)] Route: Inhalation; 18:49 Drug: Furosemide 40 mg [furosemide 10 mg/mL injection solution (4 mL)] Route: IVP; hs1 Site: left forearm; 19:27 Drug: Nitro-Bid 0.5 inches [Nitro-Bid 2 % transdermal ointment (0.5 inches)] Route: af2 Transdermal; Site: left upper arm; 04/05 05:36 Drug: NS 0.9% 250 ml [sodium chloride 0.9 % injection solution] Route: IV; Rate: bolus; af2 Site: left forearm; 05:53 Follow up: IV Status: Completed infusion af2 Output: 04/04 19:09 Urine: 200.00ml (Voided); Total: 200.00ml. hs1 19:30 Urine: 100.00ml (Voided); Total: 300.00ml. af2 22:11 Urine: 1100.00ml (Voided); Total: 1400.00ml. af2 /07 01:22 Urine: 300.00ml (Voided); Total: 1700.00ml. af2 02:00 Urine: 200.00ml (Voided); Total: 1900.00ml. af2 05:30 Urine: 200.00ml (Voided); Total: 2100.00ml. af2 RT: 04/04 18:31 Initial Med Neb Given as ordered Subsequent Med Neb Given as ordered Patient was rs5 reinforced on procedure Patient tolerated procedure well without adverse effect. Respiratory: Respiratory effort is labored, Use of accessory muscles noted. Respiratory pattern is regular tachypnea Breath sounds are diminished bilaterally. Reports cough that is productive. 18:35 ABG's drawn from left radial artery pressure held for 5 minutes no bleeding noted rs5 pressure bandage applied specimen sent pt. tolerated well. Order Results: Lab Order: BMP; SPEC'M 04/04/16 18:27 Test: GLUCOSE, FASTING; Value: 118; Range: 83-110; Abnormal: Above high normal; Units: MG/DL; Status: F Test: BLOOD UREA NITROGEN; Value: 28; Range: 7-18; Abnormal: Above high normal; Units: MG/DL; Status: F Test: CREATININE FOR GFR; Value: 1.11; Range: 0.70-1.30; Units: MG/DL; Status: F Test: GLOMERULAR FILTRATION RATE; Value: > 60.0; Range: >35; Status: F Test: SODIUM LEVEL; Value: 141; Range: 136-145; Units: MEQ/L; Status: F Test: POTASSIUM SERUM; Value: 4.6; Range: 3.5-5.1; Units: MEQ/L; Status: F Test: CHLORIDE LEVEL; Value: 106; Range: 98-107; Units: MEQ/L; Status: F Test: CARBON DIOXIDE LEVEL; Value: 25; Range: 21-32; Units: MEQ/L; Status: F Test: ANION GAP; Value: 10; Range: 8-16; Units: MEQ/L; Status: F Test: CALCIUM LEVEL; Value: 8.9; Range: 8.8-10.2; Units: MG/DL; Status: F Test Note: ; Units are mL/min/1.73 m2 Chronic Kidney Disease Staging per NKF: Stage I & II GFR >=60 Normal to Mildly Decreased Stage III GFR 30-59 Moderately Decreased Stage IV GFR 15-29 Severely Decreased Stage V GFR <15 Very Little GFR Left ESRD GFR <15 on KNOT TIER Lab Order: CBC with Diff; SPEC'04/04/16 18:27 Test: WHITE BLOOD COUNT; Value: 63.0; Range: 4.0-10.0; Abnormal: Above upper panic limits; Units: K/mm3; Status: F Test: RED BLOOD COUNT; Value: 3.22; Range: 4.30-6.10; Abnormal: Below low normal; Units: M/mm3; Status: F Test: HEMOGLOBIN; Value: 10.7; Range: 14.0-18.0; Abnormal: Below low normal; Units: g/dl; Status: F Test: HEMATOCRIT; Value: 34.1; Range: 42.0-52.0; Abnormal: Below low normal; Units: %; Status: F Test: MEAN CORPUSCULAR VOLUME; Value: 105.7; Range: 80.0-96.0; Abnormal: Above high normal; Units: fl; Status: F Test: MEAN CORPUSCULAR HEMOGLOBIN; Value: 33.3; Range: 27.0-33.0; Abnormal: Above high normal; Units: pg; Status: F Test: MEAN CORPUSCULAR HGB CONC; Value: 31.5; Range: 32.0-36.5; Abnormal: Below low normal; Units: g/dl; Status: F Test: RED CELL DISTRIBUTION WIDTH; Value: 23.0; Range: 11.5-14.5; Abnormal: Above high normal; Units: %; Status: F Test: PLATELET COUNT, AUTOMATED; Value: 614; Range: 150-450; Abnormal: Above high normal; Units: k/mm3; Status: F Test: NEUTROPHILS; Value: 54; Range: 35-75; Units: %; Status: F Test: BANDS; Value: 33; Range: < 11; Abnormal: Above high normal; Units: %; Status: F Test: LYMPHOCYTES; Value: 2; Range: 16-52; Abnormal: Below low normal; Units: %; Status: F Test: MONOCYTES; Value: 1; Range: 0-8; Units: %; Status: F Test: EOSINOPHILS; Value: 1; Range: 0-5; Units: %; Status: F Test: METAMYELOCYTES; Value: 2; Range: 0-0; Abnormal: Above high normal; Units: %; Status: F Test: MYELOCYTES; Value: 2; Range: 0-0; Abnormal: Above high normal; Units: %; Status: F Test: PROMYELOCYTES; Value: 5; Range: 0-0; Abnormal: Above high normal; Units: %; Status: F Test: POLYCHROMASIA; Value: 1+; Status: F Test: POIKILOCYTOSIS; Value: 1+; Status: F Test: ANISOCYTOSIS; Value: 4+; Status: F Test: MACROCYTOSIS; Value: 2+; Status: F Test: OVALOCYTES; Value: 1+; Status: F Test: DOHLE BODIES ; Value: 1+; Status: F Lab Order: CIP; [facility] 04/04/16 18:27 Test: CPK CREATINE PHOSPHOKINASE; Value: 61; Range: 39-308; Units: U/L; Status: F Test: CK-MB VALUE MASS; Value: 1.0; Range: 0.0-3.6; Units: NG/ML; Status: F Test: MB/CK RELATIVE INDEX; Value: 1.63; Range: < OR =4; Status: F Test Note: ; DIAGNOSIS CRITERIA MMB ng/ml Relative Index (RI) NON-AMI < or = 5 N/A ZEPEDA ZONE > 5 < or = 4 AMI > 5 > 4 Lab Order: Troponin; 04/04/16 18: Test: TROPONIN I; Value: < 0.02; Range: < 0.10; Units: NG/ML; Status: F Test Note: ; Troponin I Reference Interval for [employer] LOCI: 99th Percentile= 0.00-0.045 ng/ml Risk Stratification: <= 0.10 ng/ml Decreased Risk for Adverse Clinical Events. 0.10-1.50 ng/ml Increased Risk for Adverse Clinical Events. Evaluation of additional criterion and/or repeat testing in 2-6 hours is suggested to rule out myocardial damage. >= 1.50 ng/ml Indicative of Myocardial Injury. Lab Order: BNP; 04/04/16 18:27 Test: BRAIN NATRIURETIC PEPTIDE; Value: 817; Range: <100; Abnormal: Above high normal; Units: PG/ML; Status: F Lab Order: -Arterial Blood Gas; [facility] 04/04/16 18:26 Test: ABG pH (ARTERIAL); Value: 7.473; Range: 7.350-7.450; Abnormal: Above high normal; Units: UNITS; Status: F Test: ABG PARTIAL PRESSURE CO2; Value: 27.4; Range: 35.0-45.0; Abnormal: Below low normal; Units: mmHg; Status: F Test: ABG PARTIAL PRESSURE O2; Value: 61.9; Range: 75.0-100.0; Abnormal: Below low normal; Units: mmHg; Status: F Test: ABG TOTAL CO2; Value: 20.5; Range: 23.0-31.0; Abnormal: Below low normal; Units: MEQ/L; Status: F Test: ABG HCO3; Value: 19.6; Range: 22.0-26.0; Abnormal: Below low normal; Units: MEQ/L; Status: F Test: ABG BASE EXCESS; Value: -2.9; Range: -2.0-2.0; Abnormal: Below low normal; Status: F Test: ABG STANDARD HCO3; Value: 21.9; Range: 22.0-26.0; Abnormal: Below low normal; Units: MEQ/L; Status: F Test: ABG O2 SATURATION; Value: 91.5; Range: 95.0-99.0; Abnormal: Below low normal; Units: %; Status: F Test: ABG DEVICE; Value: NASAL PEBBLES; Status: F Lab Order: LIVER PROFILE; SPEC04/04/16 18:27 Test: AST/SGOT; Value: 31; Range: 15-37; Units: U/L; Status: F Test: ALT/SGPT; Value: 27; Range: 12-78; Units: U/L; Status: F Test: ALKALINE PHOSPHATASE; Value: 141; Range: 45-117; Abnormal: Above high normal; Units: U/L; Status: F Test: BILIRUBIN,TOTAL; Value: 0.3; Range: 0.2-1.0; Units: MG/DL; Status: F Test: BILIRUBIN,DIRECT; Value: 0.1; Range: 0.0-0.2; Units: MG/DL; Status: F Test: TOTAL PROTEIN; Value: 8.5; Range: 6.4-8.2; Abnormal: Above high normal; Units: GM/DL; Status: F Test: ALBUMIN; Value: 3.8; Range: 3.2-5.2; Units: GM/DL; Status: F Test: ALBUMIN/GLOBULIN RATIO; Value: 0.81; Range: 1.00-1.93; Abnormal: Below low normal; Status: F Lab Order: Type & Screen; SPEC04/04/16 18:26 Test: BLOOD TYPE; Value: A POS; Status: F Test: AB SCREEN (INDIRECT STEVEN)VIS; Value: NEGATIVE; Status: F Lab Order: PT/INR; [facility] 04/04/16 18:26 Test: PROTHROMBIN TIME; Value: 16.2; Range: 12.3-14.5; Abnormal: Above high normal; Units: SECONDS; Status: F Test: INR; Value: 1.29; Status: F Test Note: ; THERAPUTIC HUMAN INR VALUES INDICATIONS NORMAL RANGES PROPHYLAXIS/TREATMENT OF: VENOUS THROMBOSIS 2.0-3.0 PULMONARY EMBOLISM 2.0-3.0 PREVENTION OF SYSTEMIC EMBOLISM FROM: TISSUE HEART VALVES 2.0-3.0 ACUTE MYOCARDIAL INFARCTION 2.0-3.0 VALVULAR HEART DISEASE 2.0-3.0 ATRIAL FIBRILLATION 2.0-3.0 MECHANICAL VALVES(HIGH RISK) 2.5-3.5 RECURRENT MYOCARDIAL INFARCTION 2.5-3.5 Lab Order: PTT; [facility] 04/04/16 18:26 Test: PARTIAL THROMBOPLASTIN TIME; Value: 41.6; Range: 26.6-37.1; Abnormal: Above high normal; Units: SECONDS; Status: F Lab Order: PLATELET ESTIMATE; [facility] 04/04/16 18:27 Test: PLATELET ESTIMATE; Value: INCREASED; Range: NORMAL; Status: F Lab Order: CARDIAC MARKER PANEL; [facility] 04/04/16 22:48 Test: CPK CREATINE PHOSPHOKINASE; Value: 69; Range: 39-308; Units: U/L; Status: F Test: CK-MB VALUE MASS; Value: 3.9; Range: 0.0-3.6; Abnormal: Above high normal; Units: NG/ML; Status: F Test: MB/CK RELATIVE INDEX; Value: 5.65; Range: < OR =4; Abnormal: Above high normal; Status: F Test: TROPONIN I; Value: 1.03; Range: < 0.10; Abnormal: High; Units: NG/ML; Status: F Test Note: ; DIAGNOSIS CRITERIA MMB ng/ml Relative Index (RI) NON-AMI < or = 5 N/A ZEPEDA ZONE > 5 < or = 4 AMI > 5 > 4 Lab Order: C REACTIVE PROTEIN QUANTITATIV; [facility] 04/04/16 21:18 Test: C REACTIVE PROTEIN QUANTITATIV; Value: 0.96; Range: 0.00-0.30; Abnormal: Above high normal; Units: MG/DL; Status: F Lab Order: CARDIAC MARKER PANEL; [facility] 04/05/16 05:49 Test: CPK CREATINE PHOSPHOKINASE; Value: 68; Range: 39-308; Units: U/L; Status: F Test: CK-MB VALUE MASS; Value: 3.3; Range: 0.0-3.6; Units: NG/ML; Status: F Test: MB/CK RELATIVE INDEX; Value: 4.85; Range: < OR =4; Abnormal: Above high normal; Status: F Test: TROPONIN I; Value: 1.60; Range: < 0.10; Abnormal: Critical Delta High; Units: NG/ML; Status: F Test Note: ; DIAGNOSIS CRITERIA MMB ng/ml Relative Index (RI) NON-AMI < or = 5 N/A ZEPEDA ZONE > 5 < or = 4 AMI > 5 > 4 Lab Order: C REACTIVE PROTEIN QUANTITATIV; [facility] 04/05/16 05:49 Test: C REACTIVE PROTEIN QUANTITATIV; Value: 6.67; Range: 0.00-0.30; Abnormal: Above high normal; Units: MG/DL; Status: F Lab Order: COMPLETE BLOOD COUNT; [facility] 04/05/16 05:49 Test: WHITE BLOOD COUNT; Value: 67.9; Range: 4.0-10.0; Abnormal: Above upper panic limits; Units: K/mm3; Status: F Test: RED BLOOD COUNT; Value: 2.59; Range: 4.30-6.10; Abnormal: Below low normal; Units: M/mm3; Status: F Test: HEMOGLOBIN; Value: 8.5; Range: 14.0-18.0; Units: g/dl; Status: F Test: HEMATOCRIT; Value: 26.9; Range: 42.0-52.0; Abnormal: Below low normal; Units: %; Status: F Test: MEAN CORPUSCULAR VOLUME; Value: 103.8; Range: 80.0-96.0; Abnormal: Above high normal; Units: fl; Status: F Test: MEAN CORPUSCULAR HEMOGLOBIN; Value: 33.0; Range: 27.0-33.0; Units: pg; Status: F Test: MEAN CORPUSCULAR HGB CONC; Value: 31.8; Range: 32.0-36.5; Abnormal: Below low normal; Units: g/dl; Status: F Test: RED CELL DISTRIBUTION WIDTH; Value: 24.9; Range: 11.5-14.5; Abnormal: Above high normal; Units: %; Status: F Test: PLATELET COUNT, AUTOMATED; Value: 430; Range: 150-450; Abnormal: Delta; Units: k/mm3; Status: F Lab Order: BASIC METABOLIC PROFILE; SPEC'04/05/16 05:49 Test: GLUCOSE, FASTING; Value: 97; Range: 83-110; Units: MG/DL; Status: F Test: BLOOD UREA NITROGEN; Value: 34; Range: 7-18; Abnormal: Above high normal; Units: MG/DL; Status: F Test: CREATININE FOR GFR; Value: 1.30; Range: 0.70-1.30; Units: MG/DL; Status: F Test: GLOMERULAR FILTRATION RATE; Value: 56.3; Range: >35; Status: F Test: SODIUM LEVEL; Value: 140; Range: 136-145; Units: MEQ/L; Status: F Test: POTASSIUM SERUM; Value: 3.8; Range: 3.5-5.1; Units: MEQ/L; Status: F Test: CHLORIDE LEVEL; Value: 104; Range: 98-107; Units: MEQ/L; Status: F Test: CARBON DIOXIDE LEVEL; Value: 23; Range: 21-32; Units: MEQ/L; Status: F Test: ANION GAP; Value: 13; Range: 8-16; Units: MEQ/L; Status: F Test: CALCIUM LEVEL; Value: 8.6; Range: 8.8-10.2; Abnormal: Below low normal; Units: MG/DL; Status: F Test Note: ; Units are mL/min/1.73 m2 Chronic Kidney Disease Staging per NKF: Stage I & II GFR >=60 Normal to Mildly Decreased Stage III GFR 30-59 Moderately Decreased Stage IV GFR 15-29 Severely Decreased Stage V GFR <15 Very Little GFR Left ESRD GFR <15 on KNOT TIER Lab Order: MAGNESIUM LEVEL; SPEC04/05/16 05:49 Test: MAGNESIUM LEVEL; Value: 1.2; Range: 1.8-2.4; Abnormal: Below low normal; Units: MG/DL; Status: F Lab Order: THYROID PROFILE; SPEC'M 04/04/16 22:48 Test: T UPTAKE; Value: 30; Range: 33-40; Abnormal: Below low normal; Units: %; Status: F Test: THYROXINE (T4); Value: 7.1; Range: 4.5-12.0; Units: UG/DL; Status: F Test: FREE THYROXINE INDEX; Value: 2.1; Range: 1.4-3.8; Units: %; Status: F Test: THYROID STIMULATING HORMONE; Value: 5.330; Range: 0.358-3.740; Abnormal: Above high normal; Units: uIU/ML; Status: F Lab Order: LACTIC ACID LEVEL, LACTATE; SPEC'M 04/05/16 05:49 Test: LACTIC ACID SEPSIS PROTOCOL; Value: 3.6; Range: 0.4-2.0; Abnormal: Above upper panic limits; Units: MMOL/L; Status: F Radiology Order: Chest, 1 View Test: Chest, 1 View REASON FOR EXAMINATION: Chest Pain; CHEST, ONE VIEW:; ; HISTORY: Chest pain.; ; COMPARISON: 03/23/2016; ; Interstitial and alveolar edema are present. The cardiac silhouette is enlarged.; The pulmonary vasculature is prominent.; ; IMPRESSION:; ; Findings consistent with congestive heart failure.; ; ; Signed by; Mckay Devlin MD 04/04/2016 06:54 P; Radiology Order: EKG-ADULT Test: EKG-ADULT REASON FOR EXAMINATION: Chest Pain; Stationary ECG Study; [facility] - ED; ; Test Date: 2016-04-04; Pat Name: MCKAY DENSON Department:; Room: -; Gender: M Manager Diesel: JT; : 1935 Requested By: Fernando Solo; Order Number: [id number] Reading MD: Sandi Nassar; Measurements; Intervals [place]; Rate: 99 P: 35; PA: 111 QRS: -33; QRSD: 100 T: 118; QT: 337; QTc: 433; Interpretive Statements; SINUS RHYTHM WITH SHORT PA INTERVAL; MARKED LEFT AXIS DEVIATION; ST DEVIATION AND MODERATE T-WAVE ABNORMALITY, CONSIDER ISCHEMIA, LESS; PRONOUNCED; COMPARED 03/23/16; ; Electronically Signed On 2-6-2017 20:16:41 EST by Sandi Nassar; Outcome: 19:50 Decision to Hospitalize by Provider. cs11 04/05 10:13 Patient left the ED. [facility] Signatures: Dispatcher [employer] EDMS Fernando Solo MD MD ml Sleeman, Kacey, RN RN kcs Jacinta Faria, Reg Reg gb Zak Da Silva, RN RN ml6 Kaylene Rodgers RN RN hs1 Nhi Medel, AUDIO PRODUCTION INSTRUCTOR AUDIO PRODUCTION INSTRUCTOR nicole Nadia Deluca, RN RN sls1 Chadd Rodriguez jml1 Rosalino Lares,RT RT rs5 Charissa Jade dem1 Aneudy Mix, DO DO cs11 Oneyda Healy,RN RN af2 Homero Ware, AUDIO PRODUCTION INSTRUCTOR AUDIO PRODUCTION INSTRUCTOR Blanca Rosado MTDD
--- NOTE | 2016-04-05 10:15 | EDDOCDS ---
Physician Documentation [facility] Name: Tr Denson Age: 80 yrs Sex: Male : 1935 Arrival Date: 04/04/2016 Time: 17:50 Bed Admit Hold Private MD: Skip Michaels Disposition: 04/04/16 19:50 Hospitalization ordered by Anay Chapman for Inpatient Admission. Preliminary diagnosis is Unspecified combined systolic (congestive) and diastolic (congestive) heart failure. - Bed requested for 4 [place]. - Status is Inpatient Admission. kcs - Condition is Stable. - Problem is an ongoing problem. - Symptoms have improved. Historical: - Allergies: no known allergies; - Home Meds: 1. aspirin 81 mg Oral chew 1 tab once daily (Last dose: 04/04/2016 07:00) 2. atorvastatin 40 mg oral tab 1 tab once daily (Last dose: 04/04/2016 07:00) 3. captopril 12.5 mg Oral tab 0.5 tab 2 times per day (Last dose: 04/04/2016 07:00) 4. Daily-Esteban oral tab daily (Last dose: 04/04/2016 07:00) 5. furosemide 20 mg Oral tab 1 tab once daily (Last dose: 04/04/2016 07:00) 6. hydroxyurea 500 mg Oral cap every day except tues everyday except tues (Last dose: 04/04/2016 07:00) 7. Jadenu 360 mg oral tab 1 tab once daily (Last dose: 04/04/2016 07:00) 8. nitroglycerin 0.4 mg SL subl 1 tab every 5 minutes (Last dose: 04/04/2016 18:13) 9. metoprolol succinate 25 mg Tb24 1 tab once daily (Last dose: 04/04/2016 07:00) 10. Nitro-Bid 2 % transdermal oint 1 inch daily (Last dose: 04/04/2016 18:13) 11. Plavix 75 mg Oral tab 1 tab once daily (Last dose: 04/04/2016 07:00) 12. Procrit 40,000 unit/mL Inj soln 3 times per wk as needed (Last dose: Unknown) 13. sertraline 50 mg oral tab 1 tab once daily (Last dose: 04/04/2016 07:00) - PMHx: Anemia; aortic anyeursym; CVA; Essential Thronbocytemia; Hypercholesterolemia; Hypertension; IL; Myelodysplasia; CHF; - PSHx: open heart- aortic valve replacement - 2013; Cardiac Ablation; Tonsillectomy; - Social history: Smoking status: Patient states was never smoker of tobacco. No barriers to communication noted, Speaks appropriately for age. - Family history: No immediate family members are acutely ill. - : The pt / caregiver states he / she is not on anticoagulants. Home medication list is obtained from the patient. - Exposure Risk Screening:: None identified. Vital Signs: 04/04 17:51 BP 139 / 67; Pulse 105; Resp 22; Temp 97.7(O); Pulse Ox 88% on R/A; Weight 63.96 kg / dem1 141.01 lbs (R); Height 5 ft. 11 in. (180.34 cm) (R); Pain 9/10; 19:00 BP 142 / 65 (auto/); af2 19:00 Pulse 103 MON; Resp 22 S; Pulse Ox 97% on 15% Non-rebreather mask; af2 19:15 BP 146 / 66 (auto/); af2 19:15 Pulse 106 MON; Resp 22 S; Pulse Ox 97% on 15% Non-rebreather mask; af2 20:00 BP 130 / 58 (auto/); af2 20:00 Pulse 108 MON; Resp 22 S; Pulse Ox 98% on 15% Non-rebreather mask; af2 20:15 BP 132 / 60 (auto/); af2 20:15 Pulse 106 MON; Resp 22 S; Pulse Ox 98% on 15% Non-rebreather mask; af2 20:30 BP 136 / 66 (auto/); af2 20:30 Pulse 102 MON; Resp 18 S; Pulse Ox 99% on 15% Non-rebreather mask; af2 20:45 BP 121 / 58 (auto/); af2 20:45 Pulse 101 MON; Resp 22 S; Pulse Ox 98% on 15% Non-rebreather mask; af2 21:00 BP 127 / 60 (auto/); af2 21:00 Pulse 100 MON; Resp 22 S; Pulse Ox 98% on 15% Non-rebreather mask; af2 21:30 BP 121 / 58 (auto/); af2 21:30 Pulse 94 MON; Resp 22 S; Pulse Ox 98% on 15% Non-rebreather mask; af2 21:45 BP 125 / 88 (auto/); af2 21:45 Pulse 90 MON; Resp 22 S; Pulse Ox 98% on 15% Non-rebreather mask; af2 22:00 BP 116 / 57 (auto/); af2 22:00 Pulse 88 MON; Resp 22 S; Pulse Ox 98% on 15% Non-rebreather mask; af2 22:15 BP 118 / 58 (auto/); af2 22:15 Pulse 89 MON; Resp 22 S; Temp 97.0(TE); Pulse Ox 98% on 15% Non-rebreather mask; af2 22:30 BP 123 / 60 (auto/); af2 22:30 Pulse 92 MON; Resp 22 S; Pulse Ox 98% on 15% Non-rebreather mask; af2 22:45 BP 121 / 57 (auto/); af2 22:45 Pulse 91 MON; Resp 22 S; Pulse Ox 98% on 15% Non-rebreather mask; af2 23:00 BP 123 / 57 (auto/); af2 23:00 Pulse 96 MON; Resp 22 S; Pulse Ox 99% on 15% Non-rebreather mask; af2 23:15 BP 131 / 62 (auto/); af2 23:15 Pulse 96 MON; Resp 22 S; Pulse Ox 98% on 15% Non-rebreather mask; af2 23:30 BP 120 / 60 (auto/); af2 23:30 Pulse 98 MON; Resp 22 S; Pulse Ox 98% on 15% Non-rebreather mask; af2 23:45 BP 120 / 55 (auto/); af2 23:45 Pulse 97 MON; Resp 22 S; Pulse Ox 97% on 15% Non-rebreather mask; af2 23:51 Pulse 97 MON; Pulse Ox 97% ; af2 07 00:02 BP 129 / 62 (auto/); af2 00:02 Pulse 106 MON; Pulse Ox 91% ; af2 00:32 BP 122 / 56 (auto/); af2 00:32 Pulse 96 MON; Pulse Ox 93% ; af2 01:01 Temp 101.5(TE); mdr 01:02 BP 115 / 55 (auto/); af2 01:02 Pulse 94 MON; Pulse Ox 92% ; af2 01:32 BP 108 / 52 (auto/); af2 01:32 Pulse 92 MON; Resp 22 S; Pulse Ox 95% on 15% Non-rebreather mask; af2 02:02 BP 105 / 51 (auto/); af2 02:02 Pulse 98 MON; Pulse Ox 97% ; af2 02:32 BP 118 / 55 (auto/); af2 02:32 Pulse 100 MON; Pulse Ox 96% ; af2 02:59 Temp 98.7(TE); af2 03:02 BP 97 / 55 (auto/); af2 03:02 Pulse 98 MON; Resp 22 S; Pulse Ox 96% on 15% Non-rebreather mask; af2 03:32 BP 91 / 53 (auto/); af2 03:32 Pulse 92 MON; Pulse Ox 95% ; af2 04:02 BP 87 / 45 (auto/); af2 04:02 Pulse 92 MON; Pulse Ox 97% ; af2 04:32 BP 85 / 42 (auto/); af2 04:32 Pulse 90 MON; Resp 22 S; Pulse Ox 96% on 15% Non-rebreather mask; af2 05:02 BP 80 / 44 (auto/); af2 05:02 Pulse 94 MON; Resp 22 S; Pulse Ox 94% on 15% Non-rebreather mask; af2 05:04 BP 75 / 37 (auto/); af2 05:04 Pulse 92 MON; Resp 22 S; Pulse Ox 95% on 15% Non-rebreather mask; af2 05:06 BP 75 / 41 (auto/); af2 05:06 Pulse 92 MON; Resp 22 S; Pulse Ox 95% on 15% Non-rebreather mask; af2 05:10 BP 80 / 42 (man/); nicole 05:13 BP 75 / 39 (auto/); af2 05:13 Pulse 90 MON; Resp 22 S; Pulse Ox 93% on 15% Non-rebreather mask; af2 05:19 BP 75 / 39 (auto/); af2 05:19 Pulse 90 MON; Resp 22 S; Pulse Ox 96% on 15% Non-rebreather mask; af2 05:32 BP 79 / 42 (auto/); af2 05:32 Pulse 94 MON; Resp 22; Pulse Ox 94% on 15% Non-rebreather mask; af2 05:44 BP 81 / 45 (auto/); af2 06:00 BP 81 / 44 (auto/); af2 06:01 Pulse 91 MON; Resp 22 S; Pulse Ox 95% on 15% Non-rebreather mask; af2 06:15 BP 81 / 46 (auto/); af2 06:16 Pulse 93 MON; Resp 22 S; Pulse Ox 94% on 15% Non-rebreather mask; af2 06:30 BP 81 / 42 (auto/); af2 06:31 Pulse 95 MON; Resp 22 S; Pulse Ox 96% on 15% Non-rebreather mask; af2 04/04 17:51 Body Mass Index 19.67 (63.96 kg, 180.34 cm) dem1 MDM: 04/04 18:16 Construction Grip/Pulse Ox/q 15 min VS ordered. ml6 18:16 Oxygen at 2L/min via NC ordered. ml6 18:16 IV Saline Lock ordered. ml6 18:16 Undress patient appropriately for examination ordered. ml6 18:17 BMP Ordered. EDMS 18:17 CBC with Diff Ordered. EDMS 18:17 CIP Ordered. EDMS 18:17 Troponin Ordered. EDMS 18:17 BNP Ordered. EDMS 18:17 -Arterial Blood Gas Ordered. EDMS 18:18 ECG WITH READING ER PHYS+CARDIAG ordered. EDMS 18:18 Chest, 1 View Ordered. EDMS 18:23 Albuterol 5 mg Nebulizer once ordered. ml 18:23 Albuterol-Ipratropium 3 ml Inhalation once ordered. ml 18:23 Call Respiratory ordered. ml 18:23 Oxygen at 15 Liters/Minute NRB Mask ordered. ml 18:27 LIVER PROFILE Ordered. EDMS 18:29 Furosemide 40 mg IVP once ordered. ml 18:30 Type & Screen Ordered. EDMS 18:30 PT/INR Ordered. EDMS 18:30 PTT Ordered. EDMS 18:37 Nitro-Bid Ointment 2 % 0.5 inches Transdermal once ordered. ml 18:41 BED REQUEST+ADM ordered. EDMS 19:05 DIFFERENTIAL NO CHARGE Ordered. EDMS 19:05 PLATELET ESTIMATE Ordered. EDMS 19:06 Call Respiratory complete. tmm1 19:47 BMP Reviewed. cs11 19:47 CBC with Diff Reviewed. cs11 19:47 BNP Reviewed. cs11 19:47 -Arterial Blood Gas Reviewed. cs11 19:47 LIVER PROFILE Reviewed. cs11 19:47 PT/INR Reviewed. cs11 19:47 PTT Reviewed. cs11 19:47 CIP Reviewed. cs11 19:47 Troponin Reviewed. cs11 19:47 Type & Screen Reviewed. cs11 19:47 Chest, 1 View Reviewed. cs11 20:25 CBC with Diff Reviewed. ml 20:25 PLATELET ESTIMATE Reviewed. ml 20:52 CARDIAC MARKER PANEL Ordered. EDMS 20:52 C REACTIVE PROTEIN QUANTITATIV Ordered. EDMS 20:52 CARDIAC MARKER PANEL Ordered. EDMS 20:52 C REACTIVE PROTEIN QUANTITATIV Ordered. EDMS 20:52 COMPLETE BLOOD COUNT Ordered. EDMS 20:52 BASIC METABOLIC PROFILE Ordered. EDMS 20:52 MAGNESIUM LEVEL Ordered. EDMS 20:54 PHYSICAL THERAPY EVAL & TREAT ordered. EDMS 20:55 Admission / Observation Status ordered. EDMS 20:55 ECHOCARD,DOPPLER/COLOR FLOW ordered. EDMS 20:55 LOW FAT LOW CHOLESTEROL DIET ordered. EDMS 20:55 THYROID PROFILE Ordered. EDMS 20:56 BLOOD CULTURES Ordered. EDMS 20:56 BLOOD CULTURES Ordered. EDMS 20:56 RESPIRATORY PANEL Ordered. EDMS 20:56 SPUTUM CULTURE AND GRAM STAIN Ordered. EDMS 21:04 [facility] Payment Agreement was scanned into [employer] and attached to record. [facility] 21:04 Financial registration complete. [facility] 04/05 05:10 LACTIC ACID LEVEL, LACTATE Ordered. EDMS 05:33 RESPIRATORY PANEL Ordered. EDMS 05:35 NS 0.9% 250 ml IV at bolus once ordered. af2 10:03 T-Sheet-- Draft Copy was scanned into [employer] and attached to record. gb Administered Medications: 04/04 18:35 Drug: Albuterol 5 mg [albuterol sulfate 2.5 mg/0.5 mL solution for nebulization (1 mL)] rs5 Route: Nebulizer; 18:35 Drug: Albuterol-Ipratropium 3 ml [ipratropium-albuterol 0.5 mg-3 mg(2.5 mg base)/3 mL rs5 nebulization soln (3 mL)] Route: Inhalation; 18:49 Drug: Furosemide 40 mg [furosemide 10 mg/mL injection solution (4 mL)] Route: IVP; hs1 Site: left forearm; 19:27 Drug: Nitro-Bid 0.5 inches [Nitro-Bid 2 % transdermal ointment (0.5 inches)] Route: af2 Transdermal; Site: left upper arm; 04/05 05:36 Drug: NS 0.9% 250 ml [sodium chloride 0.9 % injection solution] Route: IV; Rate: bolus; af2 Site: left forearm; 05:53 Follow up: IV Status: Completed infusion af2 Signatures: Dispatcher [employer] EDMS Fernando Solo MD MD ml Daly Walton, RN RN kcs Olivia Sales, Organ Assembler Unit lbd Jacinta Faria, Reg Reg gb Zak Da Silva RN RN ml6 Kaylene Rodgers RN RN hs1 Aneudy Mix, DO cs11 McLear, Adrienne, TAPE RECORDING MACHINE OPERATOR TAPE RECORDING MACHINE OPERATOR tmm1 Oneyda Healy RN RN af2 Blanca Rodriges Richard RT rs5 The chart was reviewed and I authenticate all verbal orders and agree with the evaluation and treatment provided.Corrections: (The following items were deleted from the chart) 04/04 18:27 18:24 LIVER PROFILE+LAB ordered. EDMS EDMS 04/05 10:03 05:11 LACTIC ACID LEVEL, LACTATE ordered. EDMS EDMS Attachments: 04/04 21:04 [facility] Agreement [facility] 04/05 10:03 T-Sheet-- Draft Copy gb MTDD
[2016-04-05] MEDS: ASPIRIN 81 MG ENTERIC TAB PO SCH ×2 (10:36→20:35)
[2016-04-05] MEDS: METOPROLOL TART 12.5 MG PER 1/2 TAB PO SCH ×2 (10:37→20:35)
[2016-04-05] MEDS: MAG SULF 1GM/100ML (MAG RUN) 1 GM in APPROPRIATE DILUENT 1 EA IV SCH ×2 (10:58→10:59)
[2016-04-05] MEDS: LORazepam 2 MG/ML VIAL (J2060) IV PRN ×2 (12:53→16:19)
--- NOTE | 2016-04-05 13:58 | IPNPDOC ---
Date Seen The patient was seen on 04/05/16. Subjective CC/HPI The patient is a 80-year-old male admitted with a reason for visit of Flash Pulmonary Edema. Events since last encounter continues to have severe SOB , persistent chest tightness and id very anxious, has expressed wishes that does not want any forther treatment wants to be comfortable. After discussion with pateint , , sons and daughter patient was made comfort measures only and hospice consult was put in. Objective General Exam: Positive: Alert, No Acute Distress Eye Exam: Positive: Conjunctiva & lids normal, EOMI, PERRLA, Negative: Sclera icteric ENT Exam: Positive: Atraumatic, Mucous membr. moist/pink, Pharynx Normal Neck Exam: Positive: JVD Chest Exam: Positive: Diminished, Rales Heart Exam: Positive: Normal S1, Normal S2, Tachycardic Abdomen Exam: Positive: Normal bowel sounds, Soft, Negative: Hepatospenomegaly, Tenderness Extremity Exam: Positive: Normal pulses, Negative: Clubbing, Cyanosis, Edema Problems (1) Acute respiratory failure with hypoxia Status: Acute Problem Text: due to chf exacerbation and pulmonary edema , will continue with oxygen supplementation. (2) Comfort measures only status Status: Acute Problem Text: ativan and morphine as required. (3) Flash pulmonary edema Status: Acute Problem Text: may be having episode of ischemia causing worsening of chronic heart failure and pulmonary edema will continue with lasix. (4) CHF (congestive heart failure) Status: Acute Problem Text: has acute on chronic systolic and diastolic heart failure . EF of 40 to 45%. with acute pulmonary edema will continue with lasix. (5) Myelodysplasia (myelodysplastic syndrome) Status: Chronic Problem Text: on palliative chemo (6) PAD (peripheral artery disease) Status: Chronic (7) CAD (coronary artery disease) Status: Chronic Problem Text: end stage obstructive CAD which cannot be treated by stenting and pateint is very high risk for CABG so only medical management offered. (8) Hypertension Status: Chronic (9) Hyperlipidemia Status: Chronic (10) History of CVA with residual deficit Status: Chronic (11) Hx of supraventricular tachycardia Status: Resolved (12) H/O aortic valve replacement Status: Chronic Problem Text: with bioprosthetic valve. (13) NSTEMI (non-ST elevated myocardial infarction) Status: Acute Problem Text: elevated troponins possibly NSTEMI vs secondary elevation due to chf exacerbation. VS, I&O, 24H, Fishbone Vital Signs Date Time Temp Pulse Resp B/P Pulse Ox O2 Delivery O2 Flow Rate FiO2 04/05/16 10:10 Non-Rebreather 15.0 04/05/16 09:24 22 Laboratory Tests 2 04/04/16 18:26: Activated Partial Thromboplast Time 41.6H, Arterial Blood pH 7.473H, Arterial Blood Partial Pressure CO2 27.4L, Arterial Blood Partial Pressure O2 61.9L, Arterial Blood Total CO2 20.5L, Arterial Blood HCO3 19.6L, Arterial Blood Base Excess -2.9L, Arterial Blood Oxygen Saturation 91.5L, Blood Gas Bicarbonate Standard 21.9L, Oxygen Delivery Device NASAL PEBBLES, Prothromb Time International Ratio 1.29, Prothrombin Time 16.2H 04/04/16 18:27: Aspartate Amino Transf (AST/SGOT) 31, Alanine Aminotransferase (ALT/SGPT) 27, Alkaline Phosphatase 141H, Total Bilirubin 0.3, Direct Bilirubin 0.1, Albumin 3.8, Albumin/Globulin Ratio 0.81L, Anion Gap 10, Anisocytosis 4+, B-Type Natriuretic Peptide 817H, Band Neutrophils 33H, Calcium Level 8.9, Creatine Kinase MB 1.0, Creatine Kinase MB Relative Index 1.63, Dohle Bodies 1+, Eosinophils (Manual) 1, Glomerular Filtration Rate > 60.0, Lymphocytes (Manual) 2L, Macrocytosis 2+, Metamyelocytes 2H, Monocytes (Manual) 1, Myelocytes 2H, Neutrophils 54, Ovalocytes 1+, Platelet Estimate INCREASED, Poikilocytosis 1+, Polychromasia 1+, Promyelocytes 5H, Total Creatine Kinase 61, Total Protein 8.5H , Troponin I < 0.02 04/04/16 21:18: C-Reactive Protein, Quantitative 0.96H 04/04/16 22:48: Creatine Kinase MB 3.9H, Creatine Kinase MB Relative Index 5.65H, Total Creatine Kinase 69, Troponin I 1.03#H, Free Thyroxine Index 2.1, Thyroid Stimulating Hormone (TSH) 5.330H, Thyroxine (T4) 7.1, Triiodothyronine (T3) Uptake 30L 04/05/16 05:49: Anion Gap 13, C-Reactive Protein, Quantitative 6.67H, Blood Urea Nitrogen 34H, Creatinine 1.30, Sodium Level 140, Potassium Level 3.8, Chloride Level 104, Carbon Dioxide Level 23, Calcium Level 8.6L, Creatine Kinase MB 3.3, Creatine Kinase MB Relative Index 4.85H, Glomerular Filtration Rate 56.3, Lactic Acid ( Sepsis) 3.6*H, Magnesium Level 1.2L, Total Creatine Kinase 68, Troponin I 1.60#* H Laboratory Tests 04/04/16 18:27 Red Blood Count 3.22 L, Mean Corpuscular Volume 105.7 H, Mean Corpuscular Hemoglobin 33.3 H, Mean Corpuscular Hemoglobin Concent 31.5 L, Red Cell Distribution Width 23.0 H 04/05/16 05:49 Red Blood Count 2.59 L, Mean Corpuscular Volume 103.8 H, Mean Corpuscular Hemoglobin 33.0, Mean Corpuscular Hemoglobin Concent 31.8 L, Red Cell Distribution Width 24.9 H, Calcium Level 8.6 L Microbiology 04/04/16 Blood Culture, Received Pending 04/04/16 Blood Culture, Received Pending MONY HALL MD Apr 05, 2016 13:58
[2016-04-05 20:33] VITALS: BP 96/42
[2016-04-05] MEDS ORDERED: JADENU 360 MG PO SCH (21:00)
[2016-04-06] MEDS: FUROSEMIDE 40 MG/4 ML VIAL (J1940) IV SCH (01:39)
[2016-04-06 01:40] VITALS: BP 86/46
[2016-04-06] MEDS: LORazepam 2 MG/ML VIAL (J2060) IV PRN (03:00)
[2016-04-06] MEDS ORDERED: FUROSEMIDE 20 MG/2 ML VIAL (J1940) IV SCH (09:00)
[2016-04-06] MEDS: PANTOPRAZOLE 40MG TAB (PROTONIX) PO SCH (09:51)
[2016-04-06 09:52] VITALS: BP 80/42
[2016-04-06] MEDS: METOPROLOL TART 12.5 MG PER 1/2 TAB PO SCH (09:52)
[2016-04-06] MEDS: CLOPIDOGREL 75 MG TAB PO SCH (09:52)
[2016-04-06] MEDS: SENOKOT S TAB PO SCH (09:52)
[2016-04-06] MEDS: SERTRALINE HCL 50 MG TAB PO SCH (09:52)
[2016-04-06] MEDS: MULTIVITAMINS/MINERALS THERAP 1 TAB PO SCH (09:52)
[2016-04-06] MEDS ORDERED: LORazepam 0.5 MG TAB PO PRN (10:15)
[2016-04-06] MEDS ORDERED: MORPHINE 10MG/0.5ML ORAL CONCENTRATE SOLUTION U/D SL PRN (10:15)
[2016-04-06] MEDS ORDERED: BISACODYL 10 MG SUPP PR PRN (10:15)
[2016-04-06] MEDS ORDERED: BISA10SU PR (10:57)
[2016-04-06] MEDS ORDERED: MORP1SOL PO (10:57)
[2016-04-06] MEDS ORDERED: ATRO1OPD PO (10:57)
[2016-04-06] MEDS ORDERED: LORA1TAB12 PO (10:57)
--- NOTE | 2016-04-06 11:50 | IPNPDOC ---
Subjective General Date Seen The patient was seen on 04/06/16. Chief Complaint/HPI The patient is a 80-year-old male admitted with a reason for visit of Flash Pulmonary Edema. Subjective Events since last encounter denies any further chest pain , sleeping better with ativan , hospice have spoken to family and patient wants to go home with home hospice. Objective Physical Examination General Exam: Positive: Alert, No Acute Distress Eye Exam: Positive: Conjunctiva & lids normal, EOMI, PERRLA, Negative: Sclera icteric ENT Exam: Positive: Atraumatic, Mucous membr. moist/pink, Pharynx Normal Neck Exam: Positive: JVD Chest Exam: Positive: Diminished, Rales Heart Exam: Positive: Normal S1, Normal S2, Tachycardic Abdomen Exam: Positive: Normal bowel sounds, Soft, Negative: Hepatospenomegaly, Tenderness Extremity Exam: Positive: Normal pulses, Negative: Clubbing, Cyanosis, Edema Assessment /Plan Problems Problems: (1) Acute respiratory failure with hypoxia Status: Acute Problem Text: due to chf exacerbation and pulmonary edema , will continue with oxygen supplementation to keep patient comfortable. (2) Comfort measures only status Status: Acute Problem Text: ativan and morphine as required. (3) Flash pulmonary edema Status: Acute Problem Text: may be having episode of ischemia causing worsening of chronic heart failure and pulmonary edema will continue with lasix. (4) CHF (congestive heart failure) Status: Acute Problem Text: has acute on chronic systolic and diastolic heart failure . EF of 40 to 45%. with acute pulmonary edema will continue with lasix. (5) Myelodysplasia (myelodysplastic syndrome) Status: Chronic Problem Text: on palliative chemo (6) PAD (peripheral artery disease) Status: Chronic (7) CAD (coronary artery disease) Status: Chronic Problem Text: end stage obstructive CAD which cannot be treated by stenting and pateint is very high risk for CABG so only medical management offered. (8) Hypertension Status: Chronic (9) Hyperlipidemia Status: Chronic (10) History of CVA with residual deficit Status: Chronic (11) Hx of supraventricular tachycardia Status: Resolved (12) H/O aortic valve replacement Status: Chronic Problem Text: with bioprosthetic valve. (13) NSTEMI (non-ST elevated myocardial infarction) Status: Acute Problem Text: elevated troponins possibly NSTEMI vs secondary elevation due to chf exacerbation. VS, I&O, 24H, Fishbone Vital Signs/I&O Vital Signs Date Time Temp Pulse Resp B/P Pulse Ox O2 Delivery O2 Flow Rate FiO2 04/06/16 09:52 101 80/42 04/06/16 09:50 Non-Rebreather 15.0 04/06/16 01:40 22 I&O- Last 24 Hours up to 6 AM 04/06/16 06:00 Intake Total 120 ml Output Total 125 ml Balance -5 ml Laboratory Data Microbiology Microbiology 04/04/16 Blood Culture - Preliminary, Resulted No growth after 24 hours . All specim... 04/04/16 Blood Culture - Preliminary, Resulted No growth after 24 hours . All specim... MONY HALL MD Apr 06, 2016 11:49
--- NOTE | 2016-04-07 11:15 | EDDOCDS ---
Physician Documentation [facility] Name: Tr Denson Age: 80 yrs Sex: Male : 1935 Arrival Date: 04/04/2016 Time: 17:50 Bed Admit Hold Private MD: Skip Michaels Disposition: 04/04/16 19:50 Hospitalization ordered by Anay Chapman for Inpatient Admission. Preliminary diagnosis is Unspecified combined systolic (congestive) and diastolic (congestive) heart failure. - Bed requested for [address] [place]. - Status is Inpatient Admission. kcs - Condition is Stable. - Problem is an ongoing problem. - Symptoms have improved. Historical: - Allergies: no known allergies; - Home Meds: 1. aspirin 81 mg Oral chew 1 tab once daily (Last dose: 04/04/2016 07:00) 2. atorvastatin 40 mg oral tab 1 tab once daily (Last dose: 04/04/2016 07:00) 3. captopril 12.5 mg Oral tab 0.5 tab 2 times per day (Last dose: 04/04/2016 07:00) 4. Daily-Esteban oral tab daily (Last dose: 04/04/2016 07:00) 5. furosemide 20 mg Oral tab 1 tab once daily (Last dose: 04/04/2016 07:00) 6. hydroxyurea 500 mg Oral cap every day except tues everyday except tues (Last dose: 04/04/2016 07:00) 7. Jadenu 360 mg oral tab 1 tab once daily (Last dose: 04/04/2016 07:00) 8. nitroglycerin 0.4 mg SL subl 1 tab every 5 minutes (Last dose: 04/04/2016 18:13) 9. metoprolol succinate 25 mg Tb24 1 tab once daily (Last dose: 04/04/2016 07:00) 10. Nitro-Bid 2 % transdermal oint 1 inch daily (Last dose: 04/04/2016 18:13) 11. Plavix 75 mg Oral tab 1 tab once daily (Last dose: 04/04/2016 07:00) 12. Procrit 40,000 unit/mL Inj soln 3 times per wk as needed (Last dose: Unknown) 13. sertraline 50 mg oral tab 1 tab once daily (Last dose: 04/04/2016 07:00) - PMHx: Anemia; aortic anyeursym; CVA; Essential Thronbocytemia; Hypercholesterolemia; Hypertension; PR; Myelodysplasia; CHF; - PSHx: open heart- aortic valve replacement - 2013; Cardiac Ablation; Tonsillectomy; - Social history: Smoking status: Patient states was never smoker of tobacco. No barriers to communication noted, Speaks appropriately for age. - Family history: No immediate family members are acutely ill. - : The pt / caregiver states he / she is not on anticoagulants. Home medication list is obtained from the patient. - Exposure Risk Screening:: None identified. Vital Signs: 04/04 17:51 BP 139 / 67; Pulse 105; Resp 22; Temp 97.7(O); Pulse Ox 88% on R/A; Weight 63.96 kg / dem1 141.01 lbs (R); Height 5 ft. 11 in. (180.34 cm) (R); Pain 9/10; 19:00 BP 142 / 65 (auto/); af2 19:00 Pulse 103 MON; Resp 22 S; Pulse Ox 97% on 15% Non-rebreather mask; af2 19:15 BP 146 / 66 (auto/); af2 19:15 Pulse 106 MON; Resp 22 S; Pulse Ox 97% on 15% Non-rebreather mask; af2 20:00 BP 130 / 58 (auto/); af2 20:00 Pulse 108 MON; Resp 22 S; Pulse Ox 98% on 15% Non-rebreather mask; af2 20:15 BP 132 / 60 (auto/); af2 20:15 Pulse 106 MON; Resp 22 S; Pulse Ox 98% on 15% Non-rebreather mask; af2 20:30 BP 136 / 66 (auto/); af2 20:30 Pulse 102 MON; Resp 18 S; Pulse Ox 99% on 15% Non-rebreather mask; af2 20:45 BP 121 / 58 (auto/); af2 20:45 Pulse 101 MON; Resp 22 S; Pulse Ox 98% on 15% Non-rebreather mask; af2 21:00 BP 127 / 60 (auto/); af2 21:00 Pulse 100 MON; Resp 22 S; Pulse Ox 98% on 15% Non-rebreather mask; af2 21:30 BP 121 / 58 (auto/); af2 21:30 Pulse 94 MON; Resp 22 S; Pulse Ox 98% on 15% Non-rebreather mask; af2 21:45 BP 125 / 88 (auto/); af2 21:45 Pulse 90 MON; Resp 22 S; Pulse Ox 98% on 15% Non-rebreather mask; af2 22:00 BP 116 / 57 (auto/); af2 22:00 Pulse 88 MON; Resp 22 S; Pulse Ox 98% on 15% Non-rebreather mask; af2 22:15 BP 118 / 58 (auto/); af2 22:15 Pulse 89 MON; Resp 22 S; Temp 97.0(TE); Pulse Ox 98% on 15% Non-rebreather mask; af2 22:30 BP 123 / 60 (auto/); af2 22:30 Pulse 92 MON; Resp 22 S; Pulse Ox 98% on 15% Non-rebreather mask; af2 22:45 BP 121 / 57 (auto/); af2 22:45 Pulse 91 MON; Resp 22 S; Pulse Ox 98% on 15% Non-rebreather mask; af2 23:00 BP 123 / 57 (auto/); af2 23:00 Pulse 96 MON; Resp 22 S; Pulse Ox 99% on 15% Non-rebreather mask; af2 23:15 BP 131 / 62 (auto/); af2 23:15 Pulse 96 MON; Resp 22 S; Pulse Ox 98% on 15% Non-rebreather mask; af2 23:30 BP 120 / 60 (auto/); af2 23:30 Pulse 98 MON; Resp 22 S; Pulse Ox 98% on 15% Non-rebreather mask; af2 23:45 BP 120 / 55 (auto/); af2 23:45 Pulse 97 MON; Resp 22 S; Pulse Ox 97% on 15% Non-rebreather mask; af2 23:51 Pulse 97 MON; Pulse Ox 97% ; af2 07 00:02 BP 129 / 62 (auto/); af2 00:02 Pulse 106 MON; Pulse Ox 91% ; af2 00:32 BP 122 / 56 (auto/); af2 00:32 Pulse 96 MON; Pulse Ox 93% ; af2 01:01 Temp 101.5(TE); mdr 01:02 BP 115 / 55 (auto/); af2 01:02 Pulse 94 MON; Pulse Ox 92% ; af2 01:32 BP 108 / 52 (auto/); af2 01:32 Pulse 92 MON; Resp 22 S; Pulse Ox 95% on 15% Non-rebreather mask; af2 02:02 BP 105 / 51 (auto/); af2 02:02 Pulse 98 MON; Pulse Ox 97% ; af2 02:32 BP 118 / 55 (auto/); af2 02:32 Pulse 100 MON; Pulse Ox 96% ; af2 02:59 Temp 98.7(TE); af2 03:02 BP 97 / 55 (auto/); af2 03:02 Pulse 98 MON; Resp 22 S; Pulse Ox 96% on 15% Non-rebreather mask; af2 03:32 BP 91 / 53 (auto/); af2 03:32 Pulse 92 MON; Pulse Ox 95% ; af2 04:02 BP 87 / 45 (auto/); af2 04:02 Pulse 92 MON; Pulse Ox 97% ; af2 04:32 BP 85 / 42 (auto/); af2 04:32 Pulse 90 MON; Resp 22 S; Pulse Ox 96% on 15% Non-rebreather mask; af2 05:02 BP 80 / 44 (auto/); af2 05:02 Pulse 94 MON; Resp 22 S; Pulse Ox 94% on 15% Non-rebreather mask; af2 05:04 BP 75 / 37 (auto/); af2 05:04 Pulse 92 MON; Resp 22 S; Pulse Ox 95% on 15% Non-rebreather mask; af2 05:06 BP 75 / 41 (auto/); af2 05:06 Pulse 92 MON; Resp 22 S; Pulse Ox 95% on 15% Non-rebreather mask; af2 05:10 BP 80 / 42 (man/); nicole 05:13 BP 75 / 39 (auto/); af2 05:13 Pulse 90 MON; Resp 22 S; Pulse Ox 93% on 15% Non-rebreather mask; af2 05:19 BP 75 / 39 (auto/); af2 05:19 Pulse 90 MON; Resp 22 S; Pulse Ox 96% on 15% Non-rebreather mask; af2 05:32 BP 79 / 42 (auto/); af2 05:32 Pulse 94 MON; Resp 22; Pulse Ox 94% on 15% Non-rebreather mask; af2 05:44 BP 81 / 45 (auto/); af2 06:00 BP 81 / 44 (auto/); af2 06:01 Pulse 91 MON; Resp 22 S; Pulse Ox 95% on 15% Non-rebreather mask; af2 06:15 BP 81 / 46 (auto/); af2 06:16 Pulse 93 MON; Resp 22 S; Pulse Ox 94% on 15% Non-rebreather mask; af2 06:30 BP 81 / 42 (auto/); af2 06:31 Pulse 95 MON; Resp 22 S; Pulse Ox 96% on 15% Non-rebreather mask; af2 04/04 17:51 Body Mass Index 19.67 (63.96 kg, 180.34 cm) dem1 MDM: 04/04 18:16 Ring Spinner/Pulse Ox/q 15 min VS ordered. ml6 18:16 Oxygen at 2L/min via NC ordered. ml6 18:16 IV Saline Lock ordered. ml6 18:16 Undress patient appropriately for examination ordered. ml6 18:17 BMP Ordered. EDMS 18:17 CBC with Diff Ordered. EDMS 18:17 CIP Ordered. EDMS 18:17 Troponin Ordered. EDMS 18:17 BNP Ordered. EDMS 18:17 -Arterial Blood Gas Ordered. EDMS 18:18 ECG WITH READING ER PHYS+CARDIAG ordered. EDMS 18:18 Chest, 1 View Ordered. EDMS 18:23 Albuterol 5 mg Nebulizer once ordered. ml 18:23 Albuterol-Ipratropium 3 ml Inhalation once ordered. ml 18:23 Call Respiratory ordered. ml 18:23 Oxygen at 15 Liters/Minute NRB Mask ordered. ml 18:27 LIVER PROFILE Ordered. EDMS 18:29 Furosemide 40 mg IVP once ordered. ml 18:30 Type & Screen Ordered. EDMS 18:30 PT/INR Ordered. EDMS 18:30 PTT Ordered. EDMS 18:37 Nitro-Bid Ointment 2 % 0.5 inches Transdermal once ordered. ml 18:41 BED REQUEST+ADM ordered. EDMS 19:05 DIFFERENTIAL NO CHARGE Ordered. EDMS 19:05 PLATELET ESTIMATE Ordered. EDMS 19:06 Call Respiratory complete. tmm1 19:47 BMP Reviewed. cs11 19:47 CBC with Diff Reviewed. cs11 19:47 BNP Reviewed. cs11 19:47 -Arterial Blood Gas Reviewed. cs11 19:47 LIVER PROFILE Reviewed. cs11 19:47 PT/INR Reviewed. cs11 19:47 PTT Reviewed. cs11 19:47 CIP Reviewed. cs11 19:47 Troponin Reviewed. cs11 19:47 Type & Screen Reviewed. cs11 19:47 Chest, 1 View Reviewed. cs11 20:25 CBC with Diff Reviewed. ml 20:25 PLATELET ESTIMATE Reviewed. ml 20:52 CARDIAC MARKER PANEL Ordered. EDMS 20:52 C REACTIVE PROTEIN QUANTITATIV Ordered. EDMS 20:52 CARDIAC MARKER PANEL Ordered. EDMS 20:52 C REACTIVE PROTEIN QUANTITATIV Ordered. EDMS 20:52 COMPLETE BLOOD COUNT Ordered. EDMS 20:52 BASIC METABOLIC PROFILE Ordered. EDMS 20:52 MAGNESIUM LEVEL Ordered. EDMS 20:54 PHYSICAL THERAPY EVAL & TREAT ordered. EDMS 20:55 Admission / Observation Status ordered. EDMS 20:55 ECHOCARD,DOPPLER/COLOR FLOW ordered. EDMS 20:55 LOW FAT LOW CHOLESTEROL DIET ordered. EDMS 20:55 THYROID PROFILE Ordered. EDMS 20:56 BLOOD CULTURES Ordered. EDMS 20:56 BLOOD CULTURES Ordered. EDMS 20:56 RESPIRATORY PANEL Ordered. EDMS 20:56 SPUTUM CULTURE AND GRAM STAIN Ordered. EDMS 21:04 [facility] Payment Agreement was scanned into Refinder by [employer] and attached to record. [facility] 21:04 Financial registration complete. b 04/05 05:10 LACTIC ACID LEVEL, LACTATE Ordered. EDMS 05:33 RESPIRATORY PANEL Ordered. EDMS 05:35 NS 0.9% 250 ml IV at bolus once ordered. af2 10:03 T-Sheet-- Draft Copy was scanned into [employer] by [employer] and attached to record. gb 04/06 15:04 ECG/EKG was scanned into [employer] by [employer] and attached to record. gb Administered Medications: 04/04 18:35 Drug: Albuterol 5 mg [albuterol sulfate 2.5 mg/0.5 mL solution for nebulization (1 mL)] rs5 Route: Nebulizer; 18:35 Drug: Albuterol-Ipratropium 3 ml [ipratropium-albuterol 0.5 mg-3 mg(2.5 mg base)/3 mL rs5 nebulization soln (3 mL)] Route: Inhalation; 18:49 Drug: Furosemide 40 mg [furosemide 10 mg/mL injection solution (4 mL)] Route: IVP; hs1 Site: left forearm; 19:27 Drug: Nitro-Bid 0.5 inches [Nitro-Bid 2 % transdermal ointment (0.5 inches)] Route: af2 Transdermal; Site: left upper arm; 04/05 05:36 Drug: NS 0.9% 250 ml [sodium chloride 0.9 % injection solution] Route: IV; Rate: bolus; af2 Site: left forearm; 05:53 Follow up: IV Status: Completed infusion af2 Signatures: Dispatcher [employer] EDMS Fernando Solo MD MD ml Daly Walton, RN RN kcs Olivia Sales, [facility] lbd Jacinta Faria, Reg Reg gb Zak Da Silva RN RN ml6 Kaylene Rodgers RN RN hs1 Aneudy Mix, DO cs11 McLear, Adrienne, POWER TRANSFORMER INSPECTOR POWER TRANSFORMER INSPECTOR tmm1 Oneyda Healy RN RN af2 Blanca Rodrigesb Rosalino Lares RT rs5 The chart was reviewed and I authenticate all verbal orders and agree with the evaluation and treatment provided.Corrections: (The following items were deleted from the chart) 04/04 18:27 18:24 LIVER PROFILE+LAB ordered. EDMS EDMS 04/05 10:03 05:11 LACTIC ACID LEVEL, LACTATE ordered. EDMS EDMS Attachments: 04/04 21:04 [facility] [place] 04/05 10:03 T-Sheet-- Draft Copy 04/06 15:04 ECG/EKG Chart Complete MTDD
--- NOTE | 2016-04-07 11:15 | EDDOCDS ---
Nurse's Notes [facility] Name: Mckay Denson Age: 80 yrs Sex: Male : 1935 Arrival Date: 04/04/2016 Time: 17:50 Bed Admit Hold Private MD: Skip Michaels Diagnosis: Unspecified combined systolic (congestive) and diastolic (congestive) heart failure Presentation: 04/04 17:52 Presenting complaint: Patient states: states became SOB around 1700, states had slight ml6 chest pain 20 minutes before that. The last date and time the patient was known to be well was was at 17:00 on April 04, 2016. No acute neurological deficit is noted. Pre-hospital glucose is not applicable to this patient. Adult Sepsis Screening: The patient does not have new or worsening altered mentation. Patient's respiratory rate is less than 22. Systolic blood pressure is greater than 100. Patient has a qSOFA score of 0- Negative Sepsis Screen. Suicide/Homicide risk assessment- the patient denies having any suicidal and/or homicidal ideations and does not present with any other emotional, behavioral or mental health complaints. Status: Patient is not a seed service advisor or dependent. Transition of care: patient was not received from another setting of care. 17:52 Acuity: DANITA Level 2 ml6 17:52 Method Of Arrival: Walkin/Carried/Asstd ml6 Triage Assessment: 17:52 The onset of the patients symptoms was less than three hours ago. General: Appears ml6 distressed, Behavior is appropriate for age, cooperative. Pain: Denies pain. Neurological: Level of Consciousness is awake, alert, Oriented to person, place, time, System Support Developer are equal bilaterally Moves all extremities. Full function Gait is steady, Speech is normal, Facial symmetry appears normal, Pupils are PERRLA, Reports no additional symptoms. Cardiovascular: No deficits noted. Capillary refill < 3 seconds is brisk in bilateral fingers toes Heart tones S1 S2 present Edema is absent. Pulses are all present. Respiratory: Airway is patent Respiratory effort is even, labored, Respiratory pattern is regular, hyperventilation Breath sounds with crackles expiratory bilaterally. the patient has severe shortness of breath. Historical: - Allergies: no known allergies; - Home Meds: 1. aspirin 81 mg Oral chew 1 tab once daily (Last dose: 04/04/2016 07:00) 2. atorvastatin 40 mg oral tab 1 tab once daily (Last dose: 04/04/2016 07:00) 3. captopril 12.5 mg Oral tab 0.5 tab 2 times per day (Last dose: 04/04/2016 07:00) 4. Daily-Esteban oral tab daily (Last dose: 04/04/2016 07:00) 5. furosemide 20 mg Oral tab 1 tab once daily (Last dose: 04/04/2016 07:00) 6. hydroxyurea 500 mg Oral cap every day except tues everyday except tues (Last dose: 04/04/2016 07:00) 7. Jadenu 360 mg oral tab 1 tab once daily (Last dose: 04/04/2016 07:00) 8. nitroglycerin 0.4 mg SL subl 1 tab every 5 minutes (Last dose: 04/04/2016 18:13) 9. metoprolol succinate 25 mg Tb24 1 tab once daily (Last dose: 04/04/2016 07:00) 10. Nitro-Bid 2 % transdermal oint 1 inch daily (Last dose: 04/04/2016 18:13) 11. Plavix 75 mg Oral tab 1 tab once daily (Last dose: 04/04/2016 07:00) 12. Procrit 40,000 unit/mL Inj soln 3 times per wk as needed (Last dose: Unknown) 13. sertraline 50 mg oral tab 1 tab once daily (Last dose: 04/04/2016 07:00) - PMHx: Anemia; aortic anyeursym; CVA; Essential Thronbocytemia; Hypercholesterolemia; Hypertension; CO; Myelodysplasia; CHF; - PSHx: open heart- aortic valve replacement - 2013; Cardiac Ablation; Tonsillectomy; - Social history: Smoking status: Patient states was never smoker of tobacco. No barriers to communication noted, Speaks appropriately for age. - Family history: No immediate family members are acutely ill. - : The pt / caregiver states he / she is not on anticoagulants. Home medication list is obtained from the patient. - Exposure Risk Screening:: None identified. Screenin:49 Screening information is obtained from the patient. Fall risk: At risk due to age, gait hs1 disturbance. Assistance ADL's: requires no assistance with activities of daily living. Abuse/DV Screen: The patient / caregiver reports he/she is: not in a situation that causes fear, pain or injury. Nutritional screening: No deficits noted. Advance Directives: Advance directive information has been placed on a prior [facility] medical record. home support is adequate. Assessment: 18:20 General: Appears in no apparent distress, Behavior is cooperative. Pain: Denies pain. hs1 Neurological: Level of Consciousness is awake, alert, obeys commands. Cardiovascular: Rhythm is sinus tachycardia No ectopy. Respiratory: Airway is patent Respiratory effort is labored, Respiratory pattern is regular, symmetrical, Breath sounds with wheezes bilaterally. Derm: Skin is pink, warm & dry. normal. 19:29 General: Appears in no apparent distress, Behavior is cooperative, Assumed care of pt af2 at this time. Family present at bedside.. Neurological: Level of Consciousness is awake, alert, obeys commands. Cardiovascular: Rhythm is sinus tachycardia No ectopy. Respiratory: Airway is patent Respiratory effort is labored, Respiratory pattern is regular, symmetrical, Breath sounds with crackles bilaterally. in left lower lobe, right lower lobe, left posterior lower lobe and right posterior lower lobe. Derm: Skin is pale. 20:08 General: hospitalist at bedside speaking with pt.. af2 21:00 General: Appears in no apparent distress, Behavior is cooperative. Neurological: Level af2 of Consciousness is awake, alert. Respiratory: Airway is patent Respiratory effort is labored. Derm: Skin is normal. 22:12 General: Appears in no apparent distress, Behavior is cooperative, assisted pt to use af2 urinal at this time. family updated regarding plan of care at this time.. Neurological: Level of Consciousness is awake, alert, obeys commands. Cardiovascular: Rhythm is sinus rhythm No ectopy. Respiratory: Airway is patent Respiratory effort is labored, Breath sounds with crackles bilaterally. Derm: Skin is normal. 23:15 General: Appears in no apparent distress, Behavior is cooperative. Neurological: Level af2 of Consciousness is awake, alert. Cardiovascular: Rhythm is sinus rhythm. Respiratory: Airway is patent Respiratory effort is labored. Derm: Skin is normal. 23:51 General: Dr. Chapman notified regarding pt family request to admin sleep, anxiety med. . af2 04/05 00:06 General: pt moved to new room and placed on hospital bed, assisted to position of af2 comfort. family remains at bedside.. 00:22 General: Dr. He called at this time regarding Lovenox dosing and pt receiving Heparin af2 tonight. Per Dr. Chapman, he will amend Lovenox dosing and pt okay to have both tonight.. 00:53 General: pt medicated for pain to left shoulder at this time, family updated regarding af2 plan of care. . Cardiovascular: Rhythm is sinus rhythm No ectopy. Respiratory: Airway is patent Respiratory effort is labored, Breath sounds with crackles Breath sounds with wheezes. Derm: Skin is normal. 01:05 General: pt temp of 101.5F, pt previously medicated for pain with Tylenol. Blankets af2 removed at this time. Will continue to monitor pt. For medication documentation, please see paper MAR.. 02:00 General: Appears in no apparent distress, Behavior is cooperative. Neurological: Level af2 of Consciousness is awake, alert, obeys commands. Cardiovascular: Rhythm is sinus rhythm. Respiratory: Airway is patent Respiratory effort is labored. Derm: Skin is normal. 02:59 General: Appears in no apparent distress, Behavior is cooperative, family continues at af2 bedside with pt. offers no complaints.. Neurological: Level of Consciousness is awake, alert. Cardiovascular: Rhythm is sinus rhythm No ectopy. Respiratory: Airway is patent Respiratory effort is labored. Derm: Skin is normal. 04:00 General: Appears in no apparent distress, Behavior is cooperative, pt resting quietly af2 with eyes closed, family continues at bedside with pt.. Cardiovascular: Rhythm is sinus rhythm No ectopy. Respiratory: Airway is patent Respiratory effort is labored. Derm: Skin is normal. 04:30 General: pt bp decreased at this time, NTG paste removed. will continue to monitor. . af2 05:00 General: pt bp 80/42 manual, Dr. Chapman notified. No orders received, Dr. Chapman to come and af2 speak with pt and family.. 05:13 General: Appears in no apparent distress, Behavior is cooperative. Neurological: Level af2 of Consciousness is awake, alert. Respiratory: Airway is patent Respiratory effort is labored. Derm: Skin is normal. 05:36 General: Dr. Chapman at bedside speaking with pt and family. Pt declines to have central af2 line placed, states that he does not want any invasive procedures.. 05:48 General: pt moved to C2 at this time, will continue to monitor. family at bedside.. af2 06:15 General: Appears in no apparent distress, Behavior is cooperative, pt resting quietly af2 with eyes closed, family continues at bedside. . Neurological: Level of Consciousness is awake, alert, obeys commands. Cardiovascular: Rhythm is sinus rhythm No ectopy. Respiratory: Airway is patent Respiratory effort is labored. Derm: Skin is normal. 06:48 General: hospitalist notified regarding critical lab values of WBC 67.9, trop 1.6, and af2 lactic 3.6. no orders received.. Vital Signs: 04/04 17:51 BP 139 / 67; Pulse 105; Resp 22; Temp 97.7(O); Pulse Ox 88% on R/A; Weight 63.96 kg dem1 (R); Height 5 ft. 11 in. (180.34 cm) (R); Pain 9/10; 19:00 BP 142 / 65 (auto/); af2 19:00 Pulse 103 MON; Resp 22 S; Pulse Ox 97% on 15% Non-rebreather mask; af2 19:15 BP 146 / 66 (auto/); af2 19:15 Pulse 106 MON; Resp 22 S; Pulse Ox 97% on 15% Non-rebreather mask; af2 20:00 BP 130 / 58 (auto/); af2 20:00 Pulse 108 MON; Resp 22 S; Pulse Ox 98% on 15% Non-rebreather mask; af2 20:15 BP 132 / 60 (auto/); af2 20:15 Pulse 106 MON; Resp 22 S; Pulse Ox 98% on 15% Non-rebreather mask; af2 20:30 BP 136 / 66 (auto/); af2 20:30 Pulse 102 MON; Resp 18 S; Pulse Ox 99% on 15% Non-rebreather mask; af2 20:45 BP 121 / 58 (auto/); af2 20:45 Pulse 101 MON; Resp 22 S; Pulse Ox 98% on 15% Non-rebreather mask; af2 21:00 BP 127 / 60 (auto/); af2 21:00 Pulse 100 MON; Resp 22 S; Pulse Ox 98% on 15% Non-rebreather mask; af2 21:30 BP 121 / 58 (auto/); af2 21:30 Pulse 94 MON; Resp 22 S; Pulse Ox 98% on 15% Non-rebreather mask; af2 21:45 BP 125 / 88 (auto/); af2 21:45 Pulse 90 MON; Resp 22 S; Pulse Ox 98% on 15% Non-rebreather mask; af2 22:00 BP 116 / 57 (auto/); af2 22:00 Pulse 88 MON; Resp 22 S; Pulse Ox 98% on 15% Non-rebreather mask; af2 22:15 BP 118 / 58 (auto/); af2 22:15 Pulse 89 MON; Resp 22 S; Temp 97.0(TE); Pulse Ox 98% on 15% Non-rebreather mask; af2 22:30 BP 123 / 60 (auto/); af2 22:30 Pulse 92 MON; Resp 22 S; Pulse Ox 98% on 15% Non-rebreather mask; af2 22:45 BP 121 / 57 (auto/); af2 22:45 Pulse 91 MON; Resp 22 S; Pulse Ox 98% on 15% Non-rebreather mask; af2 23:00 BP 123 / 57 (auto/); af2 23:00 Pulse 96 MON; Resp 22 S; Pulse Ox 99% on 15% Non-rebreather mask; af2 23:15 BP 131 / 62 (auto/); af2 23:15 Pulse 96 MON; Resp 22 S; Pulse Ox 98% on 15% Non-rebreather mask; af2 23:30 BP 120 / 60 (auto/); af2 23:30 Pulse 98 MON; Resp 22 S; Pulse Ox 98% on 15% Non-rebreather mask; af2 23:45 BP 120 / 55 (auto/); af2 23:45 Pulse 97 MON; Resp 22 S; Pulse Ox 97% on 15% Non-rebreather mask; af2 23:51 Pulse 97 MON; Pulse Ox 97% ; af2 07 00:02 BP 129 / 62 (auto/); af2 00:02 Pulse 106 MON; Pulse Ox 91% ; af2 00:32 BP 122 / 56 (auto/); af2 00:32 Pulse 96 MON; Pulse Ox 93% ; af2 01:01 Temp 101.5(TE); mdr 01:02 BP 115 / 55 (auto/); af2 01:02 Pulse 94 MON; Pulse Ox 92% ; af2 01:32 BP 108 / 52 (auto/); af2 01:32 Pulse 92 MON; Resp 22 S; Pulse Ox 95% on 15% Non-rebreather mask; af2 02:02 BP 105 / 51 (auto/); af2 02:02 Pulse 98 MON; Pulse Ox 97% ; af2 02:32 BP 118 / 55 (auto/); af2 02:32 Pulse 100 MON; Pulse Ox 96% ; af2 02:59 Temp 98.7(TE); af2 03:02 BP 97 / 55 (auto/); af2 03:02 Pulse 98 MON; Resp 22 S; Pulse Ox 96% on 15% Non-rebreather mask; af2 03:32 BP 91 / 53 (auto/); af2 03:32 Pulse 92 MON; Pulse Ox 95% ; af2 04:02 BP 87 / 45 (auto/); af2 04:02 Pulse 92 MON; Pulse Ox 97% ; af2 04:32 BP 85 / 42 (auto/); af2 04:32 Pulse 90 MON; Resp 22 S; Pulse Ox 96% on 15% Non-rebreather mask; af2 05:02 BP 80 / 44 (auto/); af2 05:02 Pulse 94 MON; Resp 22 S; Pulse Ox 94% on 15% Non-rebreather mask; af2 05:04 BP 75 / 37 (auto/); af2 05:04 Pulse 92 MON; Resp 22 S; Pulse Ox 95% on 15% Non-rebreather mask; af2 05:06 BP 75 / 41 (auto/); af2 05:06 Pulse 92 MON; Resp 22 S; Pulse Ox 95% on 15% Non-rebreather mask; af2 05:10 BP 80 / 42 (man/); nicole 05:13 BP 75 / 39 (auto/); af2 05:13 Pulse 90 MON; Resp 22 S; Pulse Ox 93% on 15% Non-rebreather mask; af2 05:19 BP 75 / 39 (auto/); af2 05:19 Pulse 90 MON; Resp 22 S; Pulse Ox 96% on 15% Non-rebreather mask; af2 05:32 BP 79 / 42 (auto/); af2 05:32 Pulse 94 MON; Resp 22; Pulse Ox 94% on 15% Non-rebreather mask; af2 05:44 BP 81 / 45 (auto/); af2 06:00 BP 81 / 44 (auto/); af2 06:01 Pulse 91 MON; Resp 22 S; Pulse Ox 95% on 15% Non-rebreather mask; af2 06:15 BP 81 / 46 (auto/); af2 06:16 Pulse 93 MON; Resp 22 S; Pulse Ox 94% on 15% Non-rebreather mask; af2 06:30 BP 81 / 42 (auto/); af2 06:31 Pulse 95 MON; Resp 22 S; Pulse Ox 96% on 15% Non-rebreather mask; af2 02/ 17:51 Body Mass Index 19.67 (63.96 kg, 180.34 cm) [facility] Vitals: 04/04 17:51 Log In Time: April 04, 2016 at 17:48. [facility] 17:52 RN notified that patient meets Red Flag criteria. [facility] ED Course: 17:51 Patient visited by Charissa Jade. dem1 17:51 Skip Michaels MD is Private Physician. dem1 17:51 Patient moved to Waiting dem1 17:54 Patient moved to Pre RCE dem1 18:01 Kaylene Rodgers, CARLOS is Primary Nurse. hs1 18:01 Patient moved to 8 hs1 18:05 Inserted saline lock: 20 gauge in left forearm and blood collected. The patient hs1 tolerated the procedure well. 18:09 Patient moved to 2 [facility] 18:11 Triage Initiated ml6 18:12 Fernando Solo MD is Attending Physician. ml 18:12 Patient visited by Fernando Solo MD. ml 18:30 -Arterial Blood Gas Sent. rs5 18:30 PTT Sent. hs1 18:30 PT/INR Sent. hs1 18:30 Type & Screen Sent. hs1 18:30 LIVER PROFILE Sent. hs1 18:30 BMP Sent. hs1 18:30 CBC with Diff Sent. hs1 18:30 CIP Sent. hs1 18:31 Troponin Sent. hs1 18:37 Patient visited by Chadd Rodriguez. jml1 18:37 EKG done. (by ED staff). Reviewed by Fernando Solo MD. jml1 18:50 The patient / caregiver is instructed regarding the plan of care and ED course. Cardiac hs1 monitor on. Pulse ox on. NIBP on. 18:53 No procedures done that require assistance. hs1 18:55 Oneyda Healy RN is Primary Nurse. af2 19:13 DIFFERENTIAL NO CHARGE Sent. af2 19:17 Chest, 1 View Returned. EDMS 19:28 Patient visited by Oneyda Healy RN. af2 19:28 Patient visited by Oneyda Healy RN. af2 19:30 Patient visited by Oneyda Healy RN. af2 19:37 Attending Physician role handed off by Fernando Solo MD cs11 19:37 Aneudy Mix DO is Attending Physician. cs11 19:50 Anay Chapman is Hospitalizing Provider. cs11 20:08 Patient visited by Oneyda Healy RN. af2 20:29 Patient moved to Admit Hold sls1 20:45 Patient visited by Homero Ware PCA. mdr 20:45 Warm blanket given. mdr 20:54 EKG-ADULT Returned. EDMS 20:57 Primary Nurse role handed off by Kaylene Rodgers RN nicole 21:04 [facility] Payment Agreement was scanned into [employer] and attached to record. gjb 22:15 Patient visited by Oneyda Healy RN. af2 23:51 Patient moved to 9 sls1 23:52 Patient visited by Oneyda Healy RN. af2 23:52 Patient moved to Admit Hold sls1 02 00:06 Patient visited by Oneyda Healy RN. af2 00:59 Patient visited by Oneyda Healy RN. af2 01:01 Patient visited by Homero Ware PCA. mdr 01:14 Patient visited by Oneyda Healy RN. af2 01:22 Patient visited by Oneyda Healy RN. af2 03:00 Patient visited by Oneyda Healy RN. af2 04:48 Patient visited by Oneyda Healy RN. af2 05:10 Patient visited by Nhi Medel PCA. nciole 05:16 Patient visited by Oneyda Healy RN. af2 05:30 Patient visited by Oneyda Healy RN. af2 05:37 Patient visited by Oneyda Healy RN. af2 05:44 Patient moved to 2 sls1 05:44 Patient moved to Admit Hold sls1 05:51 Patient visited by Oneyda Healy RN. af2 06:37 Patient visited by Oneyda Healy RN. af2 06:49 Patient visited by Oneyda Healy RN. af2 10:03 T-Sheet-- Draft Copy was scanned into [employer] and attached to record. gb 04/06 15:04 ECG/EKG was scanned into [employer] and attached to record. gb Administered Medications: 04/04 18:35 Drug: Albuterol 5 mg [albuterol sulfate 2.5 mg/0.5 mL solution for nebulization (1 mL)] rs5 Route: Nebulizer; 18:35 Drug: Albuterol-Ipratropium 3 ml [ipratropium-albuterol 0.5 mg-3 mg(2.5 mg base)/3 mL rs5 nebulization soln (3 mL)] Route: Inhalation; 18:49 Drug: Furosemide 40 mg [furosemide 10 mg/mL injection solution (4 mL)] Route: IVP; hs1 Site: left forearm; 19:27 Drug: Nitro-Bid 0.5 inches [Nitro-Bid 2 % transdermal ointment (0.5 inches)] Route: af2 Transdermal; Site: left upper arm; 04/05 05:36 Drug: NS 0.9% 250 ml [sodium chloride 0.9 % injection solution] Route: IV; Rate: bolus; af2 Site: left forearm; 05:53 Follow up: IV Status: Completed infusion af2 Output: 04/04 19:09 Urine: 200.00ml (Voided); Total: 200.00ml. hs1 19:30 Urine: 100.00ml (Voided); Total: 300.00ml. af2 22:11 Urine: 1100.00ml (Voided); Total: 1400.00ml. af2 07 01:22 Urine: 300.00ml (Voided); Total: 1700.00ml. af2 02:00 Urine: 200.00ml (Voided); Total: 1900.00ml. af2 05:30 Urine: 200.00ml (Voided); Total: 2100.00ml. af2 RT: 04/04 18:31 Initial Med Neb Given as ordered Subsequent Med Neb Given as ordered Patient was rs5 reinforced on procedure Patient tolerated procedure well without adverse effect. Respiratory: Respiratory effort is labored, Use of accessory muscles noted. Respiratory pattern is regular tachypnea Breath sounds are diminished bilaterally. Reports cough that is productive. 18:35 ABG's drawn from left radial artery pressure held for 5 minutes no bleeding noted rs5 pressure bandage applied specimen sent pt. tolerated well. Order Results: Lab Order: BMP; SPEC'M 04/04/16 18:27 Test: GLUCOSE, FASTING; Value: 118; Range: 83-110; Abnormal: Above high normal; Units: MG/DL; Status: F Test: BLOOD UREA NITROGEN; Value: 28; Range: 7-18; Abnormal: Above high normal; Units: MG/DL; Status: F Test: CREATININE FOR GFR; Value: 1.11; Range: 0.70-1.30; Units: MG/DL; Status: F Test: GLOMERULAR FILTRATION RATE; Value: > 60.0; Range: >35; Status: F Test: SODIUM LEVEL; Value: 141; Range: 136-145; Units: MEQ/L; Status: F Test: POTASSIUM SERUM; Value: 4.6; Range: 3.5-5.1; Units: MEQ/L; Status: F Test: CHLORIDE LEVEL; Value: 106; Range: 98-107; Units: MEQ/L; Status: F Test: CARBON DIOXIDE LEVEL; Value: 25; Range: 21-32; Units: MEQ/L; Status: F Test: ANION GAP; Value: 10; Range: 8-16; Units: MEQ/L; Status: F Test: CALCIUM LEVEL; Value: 8.9; Range: 8.8-10.2; Units: MG/DL; Status: F Test Note: ; Units are mL/min/1.73 m2 Chronic Kidney Disease Staging per NKF: Stage I & II GFR >=60 Normal to Mildly Decreased Stage III GFR 30-59 Moderately Decreased Stage IV GFR 15-29 Severely Decreased Stage V GFR <15 Very Little GFR Left ESRD GFR <15 on FIELD MARKETING DIRECTOR Lab Order: CBC with Diff; SPEC'M 04/04/16 18:27 Test: WHITE BLOOD COUNT; Value: 63.0; Range: 4.0-10.0; Abnormal: Above upper panic limits; Units: K/mm3; Status: F Test: RED BLOOD COUNT; Value: 3.22; Range: 4.30-6.10; Abnormal: Below low normal; Units: M/mm3; Status: F Test: HEMOGLOBIN; Value: 10.7; Range: 14.0-18.0; Abnormal: Below low normal; Units: g/dl; Status: F Test: HEMATOCRIT; Value: 34.1; Range: 42.0-52.0; Abnormal: Below low normal; Units: %; Status: F Test: MEAN CORPUSCULAR VOLUME; Value: 105.7; Range: 80.0-96.0; Abnormal: Above high normal; Units: fl; Status: F Test: MEAN CORPUSCULAR HEMOGLOBIN; Value: 33.3; Range: 27.0-33.0; Abnormal: Above high normal; Units: pg; Status: F Test: MEAN CORPUSCULAR HGB CONC; Value: 31.5; Range: 32.0-36.5; Abnormal: Below low normal; Units: g/dl; Status: F Test: RED CELL DISTRIBUTION WIDTH; Value: 23.0; Range: 11.5-14.5; Abnormal: Above high normal; Units: %; Status: F Test: PLATELET COUNT, AUTOMATED; Value: 614; Range: 150-450; Abnormal: Above high normal; Units: k/mm3; Status: F Test: NEUTROPHILS; Value: 54; Range: 35-75; Units: %; Status: F Test: BANDS; Value: 33; Range: < 11; Abnormal: Above high normal; Units: %; Status: F Test: LYMPHOCYTES; Value: 2; Range: 16-52; Abnormal: Below low normal; Units: %; Status: F Test: MONOCYTES; Value: 1; Range: 0-8; Units: %; Status: F Test: EOSINOPHILS; Value: 1; Range: 0-5; Units: %; Status: F Test: METAMYELOCYTES; Value: 2; Range: 0-0; Abnormal: Above high normal; Units: %; Status: F Test: MYELOCYTES; Value: 2; Range: 0-0; Abnormal: Above high normal; Units: %; Status: F Test: PROMYELOCYTES; Value: 5; Range: 0-0; Abnormal: Above high normal; Units: %; Status: F Test: POLYCHROMASIA; Value: 1+; Status: F Test: POIKILOCYTOSIS; Value: 1+; Status: F Test: ANISOCYTOSIS; Value: 4+; Status: F Test: MACROCYTOSIS; Value: 2+; Status: F Test: OVALOCYTES; Value: 1+; Status: F Test: DOHLE BODIES ; Value: 1+; Status: F Lab Order: CIP; [facility]04/04/16 18:27 Test: CPK CREATINE PHOSPHOKINASE; Value: 61; Range: 39-308; Units: U/L; Status: F Test: CK-MB VALUE MASS; Value: 1.0; Range: 0.0-3.6; Units: NG/ML; Status: F Test: MB/CK RELATIVE INDEX; Value: 1.63; Range: < OR =4; Status: F Test Note: ; DIAGNOSIS CRITERIA MMB ng/ml Relative Index (RI) NON-AMI < or = 5 N/A ZEPEDA ZONE > 5 < or = 4 AMI > 5 > 4 Lab Order: Troponin; 04/04/16 18:27 Test: TROPONIN I; Value: < 0.02; Range: < 0.10; Units: NG/ML; Status: F Test Note: ; Troponin I Reference Interval for Specific Media LOCI: 99th Percentile= 0.00-0.045 ng/ml Risk Stratification: <= 0.10 ng/ml Decreased Risk for Adverse Clinical Events. 0.10-1.50 ng/ml Increased Risk for Adverse Clinical Events. Evaluation of additional criterion and/or repeat testing in 2-6 hours is suggested to rule out myocardial damage. >= 1.50 ng/ml Indicative of Myocardial Injury. Lab Order: BNP; 04/04/16 18:27 Test: BRAIN NATRIURETIC PEPTIDE; Value: 817; Range: <100; Abnormal: Above high normal; Units: PG/ML; Status: F Lab Order: -Arterial Blood Gas; 04/04/16 18:26 Test: ABG pH (ARTERIAL); Value: 7.473; Range: 7.350-7.450; Abnormal: Above high normal; Units: UNITS; Status: F Test: ABG PARTIAL PRESSURE CO2; Value: 27.4; Range: 35.0-45.0; Abnormal: Below low normal; Units: mmHg; Status: F Test: ABG PARTIAL PRESSURE O2; Value: 61.9; Range: 75.0-100.0; Abnormal: Below low normal; Units: mmHg; Status: F Test: ABG TOTAL CO2; Value: 20.5; Range: 23.0-31.0; Abnormal: Below low normal; Units: MEQ/L; Status: F Test: ABG HCO3; Value: 19.6; Range: 22.0-26.0; Abnormal: Below low normal; Units: MEQ/L; Status: F Test: ABG BASE EXCESS; Value: -2.9; Range: -2.0-2.0; Abnormal: Below low normal; Status: F Test: ABG STANDARD HCO3; Value: 21.9; Range: 22.0-26.0; Abnormal: Below low normal; Units: MEQ/L; Status: F Test: ABG O2 SATURATION; Value: 91.5; Range: 95.0-99.0; Abnormal: Below low normal; Units: %; Status: F Test: ABG DEVICE; Value: NASAL PEBBLES; Status: F Lab Order: LIVER PROFILE; SPEC04/04/16 18:27 Test: AST/SGOT; Value: 31; Range: 15-37; Units: U/L; Status: F Test: ALT/SGPT; Value: 27; Range: 12-78; Units: U/L; Status: F Test: ALKALINE PHOSPHATASE; Value: 141; Range: 45-117; Abnormal: Above high normal; Units: U/L; Status: F Test: BILIRUBIN,TOTAL; Value: 0.3; Range: 0.2-1.0; Units: MG/DL; Status: F Test: BILIRUBIN,DIRECT; Value: 0.1; Range: 0.0-0.2; Units: MG/DL; Status: F Test: TOTAL PROTEIN; Value: 8.5; Range: 6.4-8.2; Abnormal: Above high normal; Units: GM/DL; Status: F Test: ALBUMIN; Value: 3.8; Range: 3.2-5.2; Units: GM/DL; Status: F Test: ALBUMIN/GLOBULIN RATIO; Value: 0.81; Range: 1.00-1.93; Abnormal: Below low normal; Status: F Lab Order: Type & Screen; SPEC04/04/16 18:26 Test: BLOOD TYPE; Value: A POS; Status: F Test: AB SCREEN (INDIRECT STEVEN)VIS; Value: NEGATIVE; Status: F Lab Order: PT/INR; [facility] 04/04/16 18:26 Test: PROTHROMBIN TIME; Value: 16.2; Range: 12.3-14.5; Abnormal: Above high normal; Units: SECONDS; Status: F Test: INR; Value: 1.29; Status: F Test Note: ; THERAPUTIC HUMAN INR VALUES INDICATIONS NORMAL RANGES PROPHYLAXIS/TREATMENT OF: VENOUS THROMBOSIS 2.0-3.0 PULMONARY EMBOLISM 2.0-3.0 PREVENTION OF SYSTEMIC EMBOLISM FROM: TISSUE HEART VALVES 2.0-3.0 ACUTE MYOCARDIAL INFARCTION 2.0-3.0 VALVULAR HEART DISEASE 2.0-3.0 ATRIAL FIBRILLATION 2.0-3.0 MECHANICAL VALVES(HIGH RISK) 2.5-3.5 RECURRENT MYOCARDIAL INFARCTION 2.5-3.5 Lab Order: PTT; [facility] 04/04/16 18:26 Test: PARTIAL THROMBOPLASTIN TIME; Value: 41.6; Range: 26.6-37.1; Abnormal: Above high normal; Units: SECONDS; Status: F Lab Order: PLATELET ESTIMATE; [facility] 04/04/16 18:27 Test: PLATELET ESTIMATE; Value: INCREASED; Range: NORMAL; Status: F Lab Order: CARDIAC MARKER PANEL; [facility] 04/04/16 22:48 Test: CPK CREATINE PHOSPHOKINASE; Value: 69; Range: 39-308; Units: U/L; Status: F Test: CK-MB VALUE MASS; Value: 3.9; Range: 0.0-3.6; Abnormal: Above high normal; Units: NG/ML; Status: F Test: MB/CK RELATIVE INDEX; Value: 5.65; Range: < OR =4; Abnormal: Above high normal; Status: F Test: TROPONIN I; Value: 1.03; Range: < 0.10; Abnormal: High; Units: NG/ML; Status: F Test Note: ; DIAGNOSIS CRITERIA MMB ng/ml Relative Index (RI) NON-AMI < or = 5 N/A ZEPEDA ZONE > 5 < or = 4 AMI > 5 > 4 Lab Order: C REACTIVE PROTEIN QUANTITATIV; [facility] 04/04/16 21:18 Test: C REACTIVE PROTEIN QUANTITATIV; Value: 0.96; Range: 0.00-0.30; Abnormal: Above high normal; Units: MG/DL; Status: F Lab Order: CARDIAC MARKER PANEL; [facility] 04/05/16 05:49 Test: CPK CREATINE PHOSPHOKINASE; Value: 68; Range: 39-308; Units: U/L; Status: F Test: CK-MB VALUE MASS; Value: 3.3; Range: 0.0-3.6; Units: NG/ML; Status: F Test: MB/CK RELATIVE INDEX; Value: 4.85; Range: < OR =4; Abnormal: Above high normal; Status: F Test: TROPONIN I; Value: 1.60; Range: < 0.10; Abnormal: Critical Delta High; Units: NG/ML; Status: F Test Note: ; DIAGNOSIS CRITERIA MMB ng/ml Relative Index (RI) NON-AMI < or = 5 N/A ZEPEDA ZONE > 5 < or = 4 AMI > 5 > 4 Lab Order: C REACTIVE PROTEIN QUANTITATIV; [facility] 04/05/16 05:49 Test: C REACTIVE PROTEIN QUANTITATIV; Value: 6.67; Range: 0.00-0.30; Abnormal: Above high normal; Units: MG/DL; Status: F Lab Order: COMPLETE BLOOD COUNT; [facility] 04/05/16 05:49 Test: WHITE BLOOD COUNT; Value: 67.9; Range: 4.0-10.0; Abnormal: Above upper panic limits; Units: K/mm3; Status: F Test: RED BLOOD COUNT; Value: 2.59; Range: 4.30-6.10; Abnormal: Below low normal; Units: M/mm3; Status: F Test: HEMOGLOBIN; Value: 8.5; Range: 14.0-18.0; Units: g/dl; Status: F Test: HEMATOCRIT; Value: 26.9; Range: 42.0-52.0; Abnormal: Below low normal; Units: %; Status: F Test: MEAN CORPUSCULAR VOLUME; Value: 103.8; Range: 80.0-96.0; Abnormal: Above high normal; Units: fl; Status: F Test: MEAN CORPUSCULAR HEMOGLOBIN; Value: 33.0; Range: 27.0-33.0; Units: pg; Status: F Test: MEAN CORPUSCULAR HGB CONC; Value: 31.8; Range: 32.0-36.5; Abnormal: Below low normal; Units: g/dl; Status: F Test: RED CELL DISTRIBUTION WIDTH; Value: 24.9; Range: 11.5-14.5; Abnormal: Above high normal; Units: %; Status: F Test: PLATELET COUNT, AUTOMATED; Value: 430; Range: 150-450; Abnormal: Delta; Units: k/mm3; Status: F Lab Order: BASIC METABOLIC PROFILE; SPEC'M 04/05/16 05:49 Test: GLUCOSE, FASTING; Value: 97; Range: 83-110; Units: MG/DL; Status: F Test: BLOOD UREA NITROGEN; Value: 34; Range: 7-18; Abnormal: Above high normal; Units: MG/DL; Status: F Test: CREATININE FOR GFR; Value: 1.30; Range: 0.70-1.30; Units: MG/DL; Status: F Test: GLOMERULAR FILTRATION RATE; Value: 56.3; Range: >35; Status: F Test: SODIUM LEVEL; Value: 140; Range: 136-145; Units: MEQ/L; Status: F Test: POTASSIUM SERUM; Value: 3.8; Range: 3.5-5.1; Units: MEQ/L; Status: F Test: CHLORIDE LEVEL; Value: 104; Range: 98-107; Units: MEQ/L; Status: F Test: CARBON DIOXIDE LEVEL; Value: 23; Range: 21-32; Units: MEQ/L; Status: F Test: ANION GAP; Value: 13; Range: 8-16; Units: MEQ/L; Status: F Test: CALCIUM LEVEL; Value: 8.6; Range: 8.8-10.2; Abnormal: Below low normal; Units: MG/DL; Status: F Test Note: ; Units are mL/min/1.73 m2 Chronic Kidney Disease Staging per NKF: Stage I & II GFR >=60 Normal to Mildly Decreased Stage III GFR 30-59 Moderately Decreased Stage IV GFR 15-29 Severely Decreased Stage V GFR <15 Very Little GFR Left ESRD GFR <15 on FIELD MARKETING DIRECTOR Lab Order: MAGNESIUM LEVEL; SPEC'04/05/16 05:49 Test: MAGNESIUM LEVEL; Value: 1.2; Range: 1.8-2.4; Abnormal: Below low normal; Units: MG/DL; Status: F Lab Order: THYROID PROFILE; SPEC'M 04/04/16 22:48 Test: T UPTAKE; Value: 30; Range: 33-40; Abnormal: Below low normal; Units: %; Status: F Test: THYROXINE (T4); Value: 7.1; Range: 4.5-12.0; Units: UG/DL; Status: F Test: FREE THYROXINE INDEX; Value: 2.1; Range: 1.4-3.8; Units: %; Status: F Test: THYROID STIMULATING HORMONE; Value: 5.330; Range: 0.358-3.740; Abnormal: Above high normal; Units: uIU/ML; Status: F Lab Order: LACTIC ACID LEVEL, LACTATE; SPEC'M 04/05/16 05:49 Test: LACTIC ACID SEPSIS PROTOCOL; Value: 3.6; Range: 0.4-2.0; Abnormal: Above upper panic limits; Units: MMOL/L; Status: F Radiology Order: Chest, 1 View Test: Chest, 1 View REASON FOR EXAMINATION: Chest Pain; CHEST, ONE VIEW:; ; HISTORY: Chest pain.; ; COMPARISON: 03/23/2016; ; Interstitial and alveolar edema are present. The cardiac silhouette is enlarged.; The pulmonary vasculature is prominent.; ; IMPRESSION:; ; Findings consistent with congestive heart failure.; ; ; Signed by; Mckay Devlin MD 04/04/2016 06:54 P; Radiology Order: EKG-ADULT Test: EKG-ADULT REASON FOR EXAMINATION: Chest Pain; Stationary ECG Study; [facility] - ED; ; Test Date: 2016-04-04; Pat Name: MCKAY DENSON Department:; Room: -; Gender: M Manager It Training: JT; : 1935 Requested By: Fernando Solo; Order Number: [id number] Reading MD: Sandi Nassar; Measurements; Intervals [place]; Rate: 99 P: 35; WY: 111 QRS: -33; QRSD: 100 T: 118; QT: 337; QTc: 433; Interpretive Statements; SINUS RHYTHM WITH SHORT WY INTERVAL; MARKED LEFT AXIS DEVIATION; ST DEVIATION AND MODERATE T-WAVE ABNORMALITY, CONSIDER ISCHEMIA, LESS; PRONOUNCED; COMPARED 03/23/16; ; Electronically Signed On 04-04-2016 20:16:41 EST by Sandi Nassar; Outcome: 19:50 Decision to Hospitalize by Provider. cs11 04/05 10:13 Patient left the ED. [facility] Signatures: Dispatcher [employer] EDMS Fernando Solo MD MD ml Daly Walton, RN RN kcs Jacinta Faria, Octavio Reg gb Zak Da Silva, RN RN ml6 Kaylene Rodgers RN RN hs1 Nhi Medel, RED CAP RED CAP nicole Nadia Deluca, RN RN sls1 Chadd Rodriguez jml1 Rosalino Lares,RT RT rs5 Charissa Jade dem1 Aneudy Mix, DO DO cs11 Oneyda Healy,RN RN af2 Homero Ware, RED CAP RED CAP mdr Blanca Rodriges Chart Complete MTDD
--- NOTE | 2016-04-07 11:15 | EDDOCDS ---
Physician Documentation [facility] Name: Tr Denson Age: 80 yrs Sex: Male : 1935 Arrival Date: 04/04/2016 Time: 17:50 Bed Admit Hold Private MD: Skip Michaels Disposition: 04/04/16 19:50 Hospitalization ordered by Anay Chapman for Inpatient Admission. Preliminary diagnosis is Unspecified combined systolic (congestive) and diastolic (congestive) heart failure. - Bed requested for 4 [place]. - Status is Inpatient Admission. kcs - Condition is Stable. - Problem is an ongoing problem. - Symptoms have improved. Historical: - Allergies: no known allergies; - Home Meds: 1. aspirin 81 mg Oral chew 1 tab once daily (Last dose: 04/04/2016 07:00) 2. atorvastatin 40 mg oral tab 1 tab once daily (Last dose: 04/04/2016 07:00) 3. captopril 12.5 mg Oral tab 0.5 tab 2 times per day (Last dose: 04/04/2016 07:00) 4. Daily-Esteban oral tab daily (Last dose: 04/04/2016 07:00) 5. furosemide 20 mg Oral tab 1 tab once daily (Last dose: 04/04/2016 07:00) 6. hydroxyurea 500 mg Oral cap every day except tues everyday except tues (Last dose: 04/04/2016 07:00) 7. Jadenu 360 mg oral tab 1 tab once daily (Last dose: 04/04/2016 07:00) 8. nitroglycerin 0.4 mg SL subl 1 tab every 5 minutes (Last dose: 04/04/2016 18:13) 9. metoprolol succinate 25 mg Tb24 1 tab once daily (Last dose: 04/04/2016 07:00) 10. Nitro-Bid 2 % transdermal oint 1 inch daily (Last dose: 04/04/2016 18:13) 11. Plavix 75 mg Oral tab 1 tab once daily (Last dose: 04/04/2016 07:00) 12. Procrit 40,000 unit/mL Inj soln 3 times per wk as needed (Last dose: Unknown) 13. sertraline 50 mg oral tab 1 tab once daily (Last dose: 04/04/2016 07:00) - PMHx: Anemia; aortic anyeursym; CVA; Essential Thronbocytemia; Hypercholesterolemia; Hypertension; AR; Myelodysplasia; CHF; - PSHx: open heart- aortic valve replacement - 2013; Cardiac Ablation; Tonsillectomy; - Social history: Smoking status: Patient states was never smoker of tobacco. No barriers to communication noted, Speaks appropriately for age. - Family history: No immediate family members are acutely ill. - : The pt / caregiver states he / she is not on anticoagulants. Home medication list is obtained from the patient. - Exposure Risk Screening:: None identified. Vital Signs: 04/04 17:51 BP 139 / 67; Pulse 105; Resp 22; Temp 97.7(O); Pulse Ox 88% on R/A; Weight 63.96 kg / dem1 141.01 lbs (R); Height 5 ft. 11 in. (180.34 cm) (R); Pain 9/10; 19:00 BP 142 / 65 (auto/); af2 19:00 Pulse 103 MON; Resp 22 S; Pulse Ox 97% on 15% Non-rebreather mask; af2 19:15 BP 146 / 66 (auto/); af2 19:15 Pulse 106 MON; Resp 22 S; Pulse Ox 97% on 15% Non-rebreather mask; af2 20:00 BP 130 / 58 (auto/); af2 20:00 Pulse 108 MON; Resp 22 S; Pulse Ox 98% on 15% Non-rebreather mask; af2 20:15 BP 132 / 60 (auto/); af2 20:15 Pulse 106 MON; Resp 22 S; Pulse Ox 98% on 15% Non-rebreather mask; af2 20:30 BP 136 / 66 (auto/); af2 20:30 Pulse 102 MON; Resp 18 S; Pulse Ox 99% on 15% Non-rebreather mask; af2 20:45 BP 121 / 58 (auto/); af2 20:45 Pulse 101 MON; Resp 22 S; Pulse Ox 98% on 15% Non-rebreather mask; af2 21:00 BP 127 / 60 (auto/); af2 21:00 Pulse 100 MON; Resp 22 S; Pulse Ox 98% on 15% Non-rebreather mask; af2 21:30 BP 121 / 58 (auto/); af2 21:30 Pulse 94 MON; Resp 22 S; Pulse Ox 98% on 15% Non-rebreather mask; af2 21:45 BP 125 / 88 (auto/); af2 21:45 Pulse 90 MON; Resp 22 S; Pulse Ox 98% on 15% Non-rebreather mask; af2 22:00 BP 116 / 57 (auto/); af2 22:00 Pulse 88 MON; Resp 22 S; Pulse Ox 98% on 15% Non-rebreather mask; af2 22:15 BP 118 / 58 (auto/); af2 22:15 Pulse 89 MON; Resp 22 S; Temp 97.0(TE); Pulse Ox 98% on 15% Non-rebreather mask; af2 22:30 BP 123 / 60 (auto/); af2 22:30 Pulse 92 MON; Resp 22 S; Pulse Ox 98% on 15% Non-rebreather mask; af2 22:45 BP 121 / 57 (auto/); af2 22:45 Pulse 91 MON; Resp 22 S; Pulse Ox 98% on 15% Non-rebreather mask; af2 23:00 BP 123 / 57 (auto/); af2 23:00 Pulse 96 MON; Resp 22 S; Pulse Ox 99% on 15% Non-rebreather mask; af2 23:15 BP 131 / 62 (auto/); af2 23:15 Pulse 96 MON; Resp 22 S; Pulse Ox 98% on 15% Non-rebreather mask; af2 23:30 BP 120 / 60 (auto/); af2 23:30 Pulse 98 MON; Resp 22 S; Pulse Ox 98% on 15% Non-rebreather mask; af2 23:45 BP 120 / 55 (auto/); af2 23:45 Pulse 97 MON; Resp 22 S; Pulse Ox 97% on 15% Non-rebreather mask; af2 23:51 Pulse 97 MON; Pulse Ox 97% ; af2 07 00:02 BP 129 / 62 (auto/); af2 00:02 Pulse 106 MON; Pulse Ox 91% ; af2 00:32 BP 122 / 56 (auto/); af2 00:32 Pulse 96 MON; Pulse Ox 93% ; af2 01:01 Temp 101.5(TE); mdr 01:02 BP 115 / 55 (auto/); af2 01:02 Pulse 94 MON; Pulse Ox 92% ; af2 01:32 BP 108 / 52 (auto/); af2 01:32 Pulse 92 MON; Resp 22 S; Pulse Ox 95% on 15% Non-rebreather mask; af2 02:02 BP 105 / 51 (auto/); af2 02:02 Pulse 98 MON; Pulse Ox 97% ; af2 02:32 BP 118 / 55 (auto/); af2 02:32 Pulse 100 MON; Pulse Ox 96% ; af2 02:59 Temp 98.7(TE); af2 03:02 BP 97 / 55 (auto/); af2 03:02 Pulse 98 MON; Resp 22 S; Pulse Ox 96% on 15% Non-rebreather mask; af2 03:32 BP 91 / 53 (auto/); af2 03:32 Pulse 92 MON; Pulse Ox 95% ; af2 04:02 BP 87 / 45 (auto/); af2 04:02 Pulse 92 MON; Pulse Ox 97% ; af2 04:32 BP 85 / 42 (auto/); af2 04:32 Pulse 90 MON; Resp 22 S; Pulse Ox 96% on 15% Non-rebreather mask; af2 05:02 BP 80 / 44 (auto/); af2 05:02 Pulse 94 MON; Resp 22 S; Pulse Ox 94% on 15% Non-rebreather mask; af2 05:04 BP 75 / 37 (auto/); af2 05:04 Pulse 92 MON; Resp 22 S; Pulse Ox 95% on 15% Non-rebreather mask; af2 05:06 BP 75 / 41 (auto/); af2 05:06 Pulse 92 MON; Resp 22 S; Pulse Ox 95% on 15% Non-rebreather mask; af2 05:10 BP 80 / 42 (man/); nicole 05:13 BP 75 / 39 (auto/); af2 05:13 Pulse 90 MON; Resp 22 S; Pulse Ox 93% on 15% Non-rebreather mask; af2 05:19 BP 75 / 39 (auto/); af2 05:19 Pulse 90 MON; Resp 22 S; Pulse Ox 96% on 15% Non-rebreather mask; af2 05:32 BP 79 / 42 (auto/); af2 05:32 Pulse 94 MON; Resp 22; Pulse Ox 94% on 15% Non-rebreather mask; af2 05:44 BP 81 / 45 (auto/); af2 06:00 BP 81 / 44 (auto/); af2 06:01 Pulse 91 MON; Resp 22 S; Pulse Ox 95% on 15% Non-rebreather mask; af2 06:15 BP 81 / 46 (auto/); af2 06:16 Pulse 93 MON; Resp 22 S; Pulse Ox 94% on 15% Non-rebreather mask; af2 06:30 BP 81 / 42 (auto/); af2 06:31 Pulse 95 MON; Resp 22 S; Pulse Ox 96% on 15% Non-rebreather mask; af2 04/04 17:51 Body Mass Index 19.67 (63.96 kg, 180.34 cm) dem1 MDM: 04/04 18:16 Apartment Maintenance/Pulse Ox/q 15 min VS ordered. ml6 18:16 Oxygen at 2L/min via NC ordered. ml6 18:16 IV Saline Lock ordered. ml6 18:16 Undress patient appropriately for examination ordered. ml6 18:17 BMP Ordered. EDMS 18:17 CBC with Diff Ordered. EDMS 18:17 CIP Ordered. EDMS 18:17 Troponin Ordered. EDMS 18:17 BNP Ordered. EDMS 18:17 -Arterial Blood Gas Ordered. EDMS 18:18 ECG WITH READING ER PHYS+CARDIAG ordered. EDMS 18:18 Chest, 1 View Ordered. EDMS 18:23 Albuterol 5 mg Nebulizer once ordered. ml 18:23 Albuterol-Ipratropium 3 ml Inhalation once ordered. ml 18:23 Call Respiratory ordered. ml 18:23 Oxygen at 15 Liters/Minute NRB Mask ordered. ml 18:27 LIVER PROFILE Ordered. EDMS 18:29 Furosemide 40 mg IVP once ordered. ml 18:30 Type & Screen Ordered. EDMS 18:30 PT/INR Ordered. EDMS 18:30 PTT Ordered. EDMS 18:37 Nitro-Bid Ointment 2 % 0.5 inches Transdermal once ordered. ml 18:41 BED REQUEST+ADM ordered. EDMS 19:05 DIFFERENTIAL NO CHARGE Ordered. EDMS 19:05 PLATELET ESTIMATE Ordered. EDMS 19:06 Call Respiratory complete. tmm1 19:47 BMP Reviewed. cs11 19:47 CBC with Diff Reviewed. cs11 19:47 BNP Reviewed. cs11 19:47 -Arterial Blood Gas Reviewed. cs11 19:47 LIVER PROFILE Reviewed. cs11 19:47 PT/INR Reviewed. cs11 19:47 PTT Reviewed. cs11 19:47 CIP Reviewed. cs11 19:47 Troponin Reviewed. cs11 19:47 Type & Screen Reviewed. cs11 19:47 Chest, 1 View Reviewed. cs11 20:25 CBC with Diff Reviewed. ml 20:25 PLATELET ESTIMATE Reviewed. ml 20:52 CARDIAC MARKER PANEL Ordered. EDMS 20:52 C REACTIVE PROTEIN QUANTITATIV Ordered. EDMS 20:52 CARDIAC MARKER PANEL Ordered. EDMS 20:52 C REACTIVE PROTEIN QUANTITATIV Ordered. EDMS 20:52 COMPLETE BLOOD COUNT Ordered. EDMS 20:52 BASIC METABOLIC PROFILE Ordered. EDMS 20:52 MAGNESIUM LEVEL Ordered. EDMS 20:54 PHYSICAL THERAPY EVAL & TREAT ordered. EDMS 20:55 Admission / Observation Status ordered. EDMS 20:55 ECHOCARD,DOPPLER/COLOR FLOW ordered. EDMS 20:55 LOW FAT LOW CHOLESTEROL DIET ordered. EDMS 20:55 THYROID PROFILE Ordered. EDMS 20:56 BLOOD CULTURES Ordered. EDMS 20:56 BLOOD CULTURES Ordered. EDMS 20:56 RESPIRATORY PANEL Ordered. EDMS 20:56 SPUTUM CULTURE AND GRAM STAIN Ordered. EDMS 21:04 [facility] Payment Agreement was scanned into [employer] and attached to record. [facility] 21:04 Financial registration complete. b 04/05 05:10 LACTIC ACID LEVEL, LACTATE Ordered. EDMS 05:33 RESPIRATORY PANEL Ordered. EDMS 05:35 NS 0.9% 250 ml IV at bolus once ordered. af2 10:03 T-Sheet-- Draft Copy was scanned into [employer] and attached to record. gb 04/06 15:04 ECG/EKG was scanned into [employer] and attached to record. gb Administered Medications: 04/04 18:35 Drug: Albuterol 5 mg [albuterol sulfate 2.5 mg/0.5 mL solution for nebulization (1 mL)] rs5 Route: Nebulizer; 18:35 Drug: Albuterol-Ipratropium 3 ml [ipratropium-albuterol 0.5 mg-3 mg(2.5 mg base)/3 mL rs5 nebulization soln (3 mL)] Route: Inhalation; 18:49 Drug: Furosemide 40 mg [furosemide 10 mg/mL injection solution (4 mL)] Route: IVP; hs1 Site: left forearm; 19:27 Drug: Nitro-Bid 0.5 inches [Nitro-Bid 2 % transdermal ointment (0.5 inches)] Route: af2 Transdermal; Site: left upper arm; 04/05 05:36 Drug: NS 0.9% 250 ml [sodium chloride 0.9 % injection solution] Route: IV; Rate: bolus; af2 Site: left forearm; 05:53 Follow up: IV Status: Completed infusion af2 Signatures: Dispatcher [employer] EDMS Fernando Solo MD MD ml Daly Walton, RN RN kcs Olivia Sales, Airworthiness Inspector Unit lbd Jacinta Faria, Reg Reg gb Zak Da Silva RN RN ml6 Kaylene Rodgers RN RN hs1 Aneudy Mix, DO cs11 McLear, Adrienne, CERTIFIED MARINE MECHANIC CERTIFIED MARINE MECHANIC tmm1 Oneyda Healy RN RN af2 Blanca Rodrigesb Rosalino Lares RT rs5 The chart was reviewed and I authenticate all verbal orders and agree with the evaluation and treatment provided.Corrections: (The following items were deleted from the chart) 04/04 18:27 18:24 LIVER PROFILE+LAB ordered. EDMS EDMS 04/05 10:03 05:11 LACTIC ACID LEVEL, LACTATE ordered. EDMS EDMS Attachments: 04/04 21:04 [facility] Payment Agreement gj 04/05 10:03 T-Sheet-- Draft Copy 04/06 15:04 ECG/EKG Chart Complete MTDD
--- NOTE | 2016-04-07 13:26 | DSES ---
DATE OF ADMISSION: 03/23/2016 DATE OF DISCHARGE: 03/26/2016 DISCHARGE DIAGNOSES: Non-ST elevation myocardial infarction. Severe end stage obstructive coronary artery disease. Myelodysplastic syndrome. Hypertension. Hyperlipidemia. Systolic and diastolic congestive heart failure. Peripheral arterial disease. History of cerebrovascular accident with residual deficit. History of supraventricular tachycardia status post ablation. Chronic leukocytosis from myelodysplasia. Myeloproliferative neoplasm. Severe anemia, received 2 units of packed red blood cells due to the progression of his myeloproliferative disorder. DISCHARGE MEDICATION: - aspirin 81 mg daily - clopidogrel 75 mg daily - Jadenu 360 mg at bedtime - Procrit 40,000 units three times daily as needed low blood count - Lasix 20 mg daily - hydroxyurea 500 mg six times per week - multivitamin one tablet daily - nitroglycerine 0.4 mg sublingual as needed angina - nitroglycerine transdermal patch 0.4 mg per hour daily at bedtime - sertraline 50 mg daily HOSPITAL COURSE: This is an 80-year-old male with advanced myeloproliferative disorder on palliative chemotherapy, advanced coronary artery disease with severe obstruction which is not amenable to stenting and patient was high risk candidate for coronary artery bypass surgery so that could not be offered, presented to the hospital with chest pain. Patient recently had a myocardial infarction ([place]) about 1 month prior. At that time, he had contacted [facility] and had cardiac catheterization and stenting could not be done and coronary artery bypass graft (CABG) could not be offered because of his high surgical risk, so it was deemed that medical management was the only option for the patient. This time, the patient was found to have NSTEMI. Patient was treated with 3 days of Lovenox. Patient's pad had resolved. Symptomatically, patient was feeling a little better and seemed to be at his baseline. Patient's cardiac condition was discussed with Dr. Singh from [facility] as well as with our hand tennis ball coverer Dr. Mckinney and as per their opinion, other than medical management , nothing could be offered to this patient. Patient had an echocardiogram done in the hospital which showed ejection fraction of 45-50% with grade 2 left ventricular diastolic dysfunction. Patient also had a replaced aortic valve by a bioprosthetic valve without any stenosis. On the day of discharge, patient was functioning at his baseline. Patient's chest pain was resolved. Patient continued to have high white blood counts in the hospital which was due to his progression of his essential thrombocytopenia to myeloproliferative disorder, chronic myeloid leukemia for which he has been receiving palliative chemotherapy. PHYSICAL EXAMINATION: Vital signs: Temperature 96.8, pulse 72, respiratory rate 22, blood pressure 109/53, pulse oximetry 92% with 1 liter nasal cannula. General: Patient awake, alert, oriented times three, lying down in bed in no acute distress. HEENT: Normocephalic, atraumatic. Moist mucous membranes. Anicteric eyes. Chest: Clear to auscultation. Cardiovascular: S1, S2, regular. No rub, murmur or gallop. Abdomen: Soft, nontender, bowel sounds present. Extremities: No edema. LABORATORY DATA: WBC 43.1, hemoglobin 9.6, platelets 261. Sodium 140, potassium 3.5, chloride 104, bicarbonate 25, BUN 27, creatinine 0.83, glucose 85, calcium 8.2. Troponin was max of 3.3. CT angiogram of the chest was negative for an pulmonary embolism. There were some minimal residual pleural effusions. DISPOSITION: Patient is discharged home in stable condition. DISCHARGE INSTRUCTIONS: Patient to followup with primary care provider in 1 week. Patient followup with own oncologist as per outpatient schedule. Patient received 2 units of blood transfusion in the hospital. Due to the progression of his myeloproliferative disorder MTDD
--- NOTE | 2016-04-11 09:04 | DSES ---
DATE OF ADMISSION: 04/04/2016 DATE OF DISCHARGE: 04/06/2016 PRIMARY CARE PROVIDER: Jovanny Cuadra. ONCOLOGIST: Dr. Reid. PARK MANAGER: Dr. Alfonso. DISCHARGE DIAGNOSES: 1. Acute respiratory failure with hypoxia due to congestive heart failure exacerbation and pulmonary edema. 2. Acute on chronic systolic and diastolic congestive heart failure. 3. Flash pulmonary edema. 4. Myelodysplastic syndrome with progression. 5. Peripheral artery disease. 6. Coronary artery disease. 7. Hypertension. 8. Hyperlipidemia. 9. History of cerebrovascular accident with residual deficit. 10. History of supraventricular tachycardia. 11. History of aortic valve replacement with bioprosthetic valve. 12. History of non-ST segment myocardial infarction one week back. 13. Comfort measures only. DISCHARGE MEDICATIONS: - atropine sulfate 1% solution one to two drops by mouth every 2 hours as needed terminal secretions - Ativan 0.5 mg tablet every 4 hours as needed anxiety or agitation - morphine sulfate concentrate 10 mg per 0.5 mL, 0.25 to 1 mL by mouth every 2 hours as needed pain or dyspnea - bisacodyl suppository 10 mg per rectum daily as needed constipation - aspirin 81 mg daily - atorvastatin 20 mg every two days - clopidogrel 75 mg by mouth daily - Jadenu 360 mg by mouth at bedtime - Procrit 40,000 units three times a day as needed low blood count - Lasix 20 mg by mouth daily - Hydroxyurea 500 mg by mouth six times per week - multivitamin one tablet by mouth daily - nitroglycerin 0.4 mg sublingually as needed angina - nitroglycerin transdermal patch 0.4 mg per hour one patch at bedtime - Sertraline 50 mg by mouth daily HOSPITAL COURSE: This is an 80-year-old male with advanced myeloproliferative disorder on palliative chemotherapy, advanced coronary artery disease with severe obstruction which is not treatable by stenting and patient was deemed not to be a surgical candidate because he was a high risk patient recently seen in January 2016 at [facility] and was told that he was only a candidate for medical management, who was again admitted to our hospital recently on 03/24/2016 for non-ST myocardial infarction and at that time discharged on 03/26/2016 after three days of treatment with Lovenox who comes back on 04/04/2016 with increasing shortness of breath. The patient was found to have pulmonary edema. The patient was diagnosed with acute and chronic systolic and diastolic congestive heart failure. The patient was started on Lasix; however, patient continued to be hypoxic, so was placed on 100% nonrebreather mask. The patient's blood pressure was noted to be chronically low, so all his blood pressure medications were stopped and Lasix was given at lower doses. However, patient continued to be short of breath and extremely anxious, unable to sleep, very uncomfortable, having persistent chest pain, so after discussion with the patient and the patient's and the children, the patient wanted to be only made comfortable. He did not want any further interventions. He was started on morphine and Ativan for chest pain and anxiety. The hospitalist was consulted and subsequently the patient was discharged home with home hospice. PHYSICAL EXAMINATION ON DISCHARGE: Pulse 101. Respiratory rate 22. Blood pressure 80/42. The patient was using oxygen through 15 liters high flow nonrebreather. DISPOSITION: Patient was discharged home with home hospice. DISCHARGE INSTRUCTIONS: Patient to followup with hospice nurses and physicians. Diet as tolerated. Activity as tolerated.
== END 2016-04-06 17:06 | disposition hospice, home (50) | DRG 280 ==
LOC: M ED 17:50 → M ED INP 20:51 → M MSPAV 04-05 10:07
PROVIDERS: ADMIT Hospitalist; ATTEND Internal Medicine Nephrology
DX: I11.0 Hypertensive heart disease with heart failure (principal); I21.4 Non-ST elevation (NSTEMI) myocardial infarction; J96.01 Acute respiratory failure with hypoxia; D47.1 Chronic myeloproliferative disease; I50.43 Acute on chronic combined systolic (congestive) and diastolic (congestive) heart failure; E78.4 Other hyperlipidemia; D64.9 Anemia, unspecified; D46.9 Myelodysplastic syndrome, unspecified; I73.9 Peripheral vascular disease, unspecified; Z79.82 Long term (current) use of aspirin; Z79.899 Other long term (current) drug therapy; I69.398 Other sequelae of cerebral infarction; Z87.891 Personal history of nicotine dependence; Z51.5 Encounter for palliative care